=== PATIENT | female | born 1985 | race Caucasian/White ===

== ENCOUNTER → 2020-02-10 08:30 | Outpatient (BNVA) | payer MEDICAID, SELFPAY | PROVIDERS: PCP Family Medicine; Referring Provider Family Medicine; Visit Provider Physician Assistant | DX: Z76.89 Persons encountering health services in other specified circumstances (principal) ==

== ENCOUNTER → 2020-02-11 08:19 | Outpatient (BNVA) | payer MEDICAID, SELFPAY | PROVIDERS: PCP Family Medicine; Referring Provider Family Medicine; Visit Provider Dietitian, Registered | DX: Z76.89 Persons encountering health services in other specified circumstances (principal) ==

== ENCOUNTER → 2020-07-02 11:21 | Outpatient (BNVA) | payer MEDICAID, SELFPAY | PROVIDERS: PCP Family Medicine; Referring Provider Family Medicine; Visit Provider Physician Assistant | DX: K91.2 Postsurgical malabsorption, not elsewhere classified (principal); E66.3 Overweight; L98.7 Excessive and redundant skin and subcutaneous tissue; L53.9 Erythematous condition, unspecified; R21 Rash and other nonspecific skin eruption; Z90.3 Acquired absence of stomach [part of] | CPT/HCPCS: 99212 ==

== ENCOUNTER → 2020-08-25 10:57 | Outpatient (BNVA) | payer MEDICAID, SELFPAY | PROVIDERS: PCP Family Medicine; Visit Provider Physician Assistant | DX: E66.3 Overweight (principal); K91.2 Postsurgical malabsorption, not elsewhere classified; L98.7 Excessive and redundant skin and subcutaneous tissue; L53.9 Erythematous condition, unspecified; R21 Rash and other nonspecific skin eruption; Z90.3 Acquired absence of stomach [part of] | CPT/HCPCS: 99212 ==

== ENCOUNTER → 2020-09-01 12:56 | Outpatient (REF) | payer MEDICAID, SELFPAY ==
--- NOTE | 2020-09-01 13:02 | ECG_ITS ---
Test Reason : PREPROC EXAM Blood Pressure : / mmHG Vent. Rate : 066 BPM Atrial Rate : 066 BPM P-R Int : 158 ms QRS Dur : 092 ms QT Int : 408 ms P-R-T Axes : 023 064 034 degrees QTc Int : 427 ms Normal sinus rhythm Normal ECG When compared with ECG of 06-FEB-2019 10:56, No significant change was found Referred By: Nely White Electronically Signed By:DANGELO DENNY
[2020-09-01 14:22] LABS: Alanine Aminotransferase 10 U/L (0-31); Albumin Level 4.6 g/dL (3.5-5.0); Alkaline Phosphatase 47 U/L (39-117); Anion Gap 11 (12-20); Aspartate Amino Transferase 16 U/L (5-31); Bilirubin Direct 0.2 mg/dL (0.0-0.5); Bilirubin Total 0.6 mg/dL (0.0-1.0); Blood Urea Nitrogen 16 mg/dL (9-16); Carbon Dioxide 27 mmol/L (22-29); Chloride 104 mmol/L (96-108); Estimated Glomerular Filt Rate > 60; Glucose Random 78 mg/dL (60-115); Hematocrit 35.4 % (37-47); Hemoglobin 11.7 g/dl (12.0-16.0); Mean Corpuscular HGB Conc 33.1 g/dl (31.0-35.0); Mean Corpuscular Hemoglobin 29.5 pg (27.0-33.0); Mean Corpuscular Volume 89.2 fL (80-98); Mean Platelet Volume 10.8 fL (9.4-12.3); Partial Thromboplastin Time 34.4 SEC (24.1-38.0); Platelet Count 228 X10*3/uL (160-400); Potassium 4.2 mmol/L (3.3-5.1); Red Blood Count 3.97 X10*6/uL (4.20-5.50); Red Cell Distribution Width 11.9 % (11.0-16.0); Sodium 138 mmol/L (135-145); Total Protein 7.3 g/dL (6.5-8.0); White Blood Count 4.2 X10*3/uL (4.8-10.8)
[2020-09-01 14:26] LABS: Estimated Average Glucose 94 mg/dL; Hemoglobin A1c % 4.9 %
[2020-09-01 14:27] LABS: Glucose Urine UA NEG (NEG); Leukocyte Esterase Urine NEG (NEG); Nitrite Urine NEG (NEG); PH 5.5 (5.0-8.0); Specific Gravity - Urine <= 1.005 (1.005-1.025); Urine Blood NEG (NEG); Urine Ketones NEG (NEG); Urine Protein NEG (NEG-TRACE)
[2020-09-01 14:28] LABS: Appearance Urine HAZY; Color Urine STRAW
[2020-09-01 14:38] LABS: HCG Quantitative < 2 mIU/mL
[2020-09-02 13:04] LABS: HIV AB/AG Nonreactive (Nonreactive); HIV Num 1 0.14 S/CO (0.00-0.99)
== END ==
LOC: HO.CARD 12:56
PROVIDERS: PCP Family Medicine; Referring Provider Nurse Practitioner; Visit Provider Family Medicine
DX: Z01.818 Encounter for other preprocedural examination (principal); Z11.4 Encounter for screening for human immunodeficiency virus [HIV]
CPT/HCPCS: 36415; 80048; 80076; 81003; 83036; 84702; 85027; 85610; 85730; 87086; 87389; 93005

== ENCOUNTER → 2020-09-03 10:47 | Outpatient (BNVA) | payer MEDICAID, SELFPAY | PROVIDERS: PCP Family Medicine; Visit Provider Physician Assistant ==

== ENCOUNTER 2021-02-16 10:28 | Outpatient (REF) | payer MEDICAID, SELFPAY ==
[2021-02-16 14:45] LABS: CT PCR NOT DETECTED (Not Detect.); NG PCR NOT DETECTED (Not Detect.)
[2021-02-19 02:22] LABS: HPV mRNA E6/E7 rflx Not Detected (Not Detected)
== END 2021-02-16 10:29 | disposition home or self-care (01) ==
LOC: HO.LAB 10:28
PROVIDERS: PCP Family Medicine; Visit Provider Advanced Practice Midwife
DX: Z01.419 Encounter for gynecological examination (general) (routine) without abnormal findings (principal); Z11.51 Encounter for screening for human papillomavirus (HPV); Z20.2 Contact with and (suspected) exposure to infections with a predominantly sexual mode of transmission
CPT/HCPCS: 87491; 87591; 87624; 88142

== ENCOUNTER 2021-02-25 13:25 | Emergency (ER) | payer OTHER, MEDICAID, SELFPAY ==
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
[2021-02-25 13:43] VITALS: BP 140/92; PULSE 78; O2SAT 98
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
[2021-02-25 14:17] LABS: MANUAL DIFF FLAG NO
[2021-02-25 14:20] LABS: Basophils Percent Auto 0.4 % (0-2); Eosinophils Absolute Auto 0.1 X10*3/uL (0.0-0.4); Eosinophils Percent Auto 0.9 % (0-4); Hematocrit 36.5 % (37.0-47.0); Hemoglobin 12.3 g/dl (12.0-16.0); Imm Gran Abs Auto 0.02 X10*3/uL (0.00-0.03); Imm Gran Pct Auto 0.3 % (0.0-0.4); Lymphocytes Percent Auto 28.6 % (20-40); Mean Corpuscular HGB Conc 33.7 g/dl (31.0-35.0); Mean Corpuscular Hemoglobin 29.5 pg (27.0-33.0); Mean Corpuscular Volume 87.5 fL (80.0-98.0); Mean Platelet Volume 10.1 fL (9.4-12.3); Monocytes Absolute Auto 0.4 X10*3/uL (0.1-1.2); Monocytes Percent Auto 6.4 % (2-11); Neutrophils Absolute Auto 4.4 x10*3/uL (2.0-8.3); Neutrophils Percent Auto 63.4 % (45-73); Platelet Count 254 X10*3/uL (160-400); Red Blood Count 4.17 X10*6/uL (4.20-5.50); White Blood Count 6.9 X10*3/uL (4.8-10.8)
[2021-02-25 14:37] VITALS: BP 122/97; PULSE 93; BMI 26.6
[2021-02-25 14:37] LABS: Blood Urea Nitrogen 15 mg/dL (9-16); Calcium 9.7 mg/dL (8.4-10.2); Estimated Glomerular Filt Rate > 60; Glucose Random 99 mg/dL (60-115)
[2021-02-25 14:44] LABS: Anion Gap 7 (12-20); Carbon Dioxide 28 mmol/L (22-29); Chloride 107 mmol/L (96-108); Potassium 4.2 mmol/L (3.3-5.1); Sodium 138 mmol/L (135-145)
[2021-02-25] MEDS: iohexoL 350 MG/ML 100 ML INFUS..BTL IV (15:08)
[2021-02-25 15:59] VITALS: BP 111/84; PULSE 68; RESP 16; TEMP 36.8; O2SAT 100
== END 2021-02-25 17:24 | disposition home or self-care (01) ==
PROVIDERS: Physician Assistant; Emergency Provider Emergency Medicine; PCP Family Medicine
DX: S16.1XXA Strain of muscle, fascia and tendon at neck level, initial encounter (principal); G44.309 Post-traumatic headache, unspecified, not intractable; R07.89 Other chest pain; N64.4 Mastodynia; V43.52XA Car driver injured in collision with other type car in traffic accident, initial encounter; Y93.9 Activity, unspecified; Y92.410 Unspecified street and highway as the place of occurrence of the external cause; Y99.9 Unspecified external cause status; Z79.899 Other long term (current) drug therapy
CPT/HCPCS: 36415; 70450; 71260; 72125; 80048; 85025; 99283; 99284; Q9967

== ENCOUNTER 2021-03-03 09:29 | Outpatient (REF) | payer MEDICAID, SELFPAY ==
[2021-03-03 11:22] LABS: COVID-19 Test Positive (Negative); IDNOW Serial# 16C4AD1C
== END 2021-03-03 09:30 | disposition home or self-care (01) ==
LOC: HO.LAB 09:29
PROVIDERS: Visit Provider Internal Medicine
DX: Z20.822 Contact with and (suspected) exposure to COVID-19 (principal)
CPT/HCPCS: 87635; C9803

== ENCOUNTER 2021-03-23 11:08 | Outpatient (REF) | payer MEDICAID, SELFPAY | END 2021-03-23 11:09 | disposition home or self-care (01) | LOC: HO.LAB 11:08 | PROVIDERS: PCP Internal Medicine; Visit Provider Obstetrics & Gynecology | DX: R87.610 Atypical squamous cells of undetermined significance on cytologic smear of cervix (ASC-US) (principal) | CPT/HCPCS: 57454; 88300; 88305 ==

== ENCOUNTER 2021-04-07 11:06 | Outpatient (REF) | payer MEDICAID, SELFPAY | END 2021-04-07 11:07 | disposition home or self-care (01) | LOC: HO.LAB 11:06 | PROVIDERS: Visit Provider Obstetrics & Gynecology | DX: R87.610 Atypical squamous cells of undetermined significance on cytologic smear of cervix (ASC-US) (principal) | CPT/HCPCS: 57454; 88305 ==

== ENCOUNTER 2021-04-12 10:04 | Outpatient (REF) | payer MEDICAID, SELFPAY ==
[2021-04-12 15:45] LABS: CT PCR NOT DETECTED (Not Detect.); NG PCR NOT DETECTED (Not Detect.)
[2021-04-13 11:04] LABS: BV Int Neg Control Negative (Negative); BV Int Pos Control Positive (Positive)
== END 2021-04-12 10:05 | disposition home or self-care (01) ==
LOC: HO.LAB 10:04
PROVIDERS: PCP Family Medicine; Visit Provider Advanced Practice Midwife
DX: N89.8 Other specified noninflammatory disorders of vagina (principal); Z20.2 Contact with and (suspected) exposure to infections with a predominantly sexual mode of transmission
CPT/HCPCS: 87480; 87491; 87510; 87591; 87660; 99212

== ENCOUNTER → 2021-04-14 11:56 | Outpatient (BNVA) | payer MEDICAID, SELFPAY | PROVIDERS: PCP Internal Medicine; Visit Provider Obstetrics & Gynecology ==

== ENCOUNTER → 2021-04-22 11:32 | Outpatient (BNVA) | payer MEDICAID, SELFPAY | PROVIDERS: Visit Provider Obstetrics & Gynecology ==

== ENCOUNTER 2021-05-05 11:41 | Outpatient (REF) | payer MEDICAID, SELFPAY ==
--- NOTE | ~2021-05-05 | XR_ITS ---
EXAMINATION: XR hand wrist RT CLINICAL INFORMATION: Pain COMPARISON: None TECHNIQUE: 4 views of the hand XR/XR hand wrist RT FINDINGS/IMPRESSION: No fracture or dislocation, however given reported area of tenderness corresponds to the scaphoid consider repeat radiographs in 2 weeks or further characterization with MR to exclude radiographically occult scaphoid fracture if clinical symptoms are appropriate Joint spaces are maintained. No cortical erosion. Soft tissues are unremarkable.
== END 2021-05-05 11:42 | disposition home or self-care (01) ==
LOC: HO.XRAY 11:41
PROVIDERS: PCP Family Medicine; Visit Provider Family Medicine
DX: M79.641 Pain in right hand (principal); M25.531 Pain in right wrist; M25.431 Effusion, right wrist
CPT/HCPCS: 73110; 73130

== ENCOUNTER 2021-05-24 12:00 | Outpatient (RCR) | payer OTHER, MEDICAID, SELFPAY | END 2021-05-25 14:53 | disposition home or self-care (01) | LOC: HO.PT 12:00 | PROVIDERS: PCP Internal Medicine; Visit Provider Internal Medicine | DX: M54.2 Cervicalgia (principal) | CPT/HCPCS: 97110; 97140; 97162; 97530 ==

== ENCOUNTER → 2021-05-25 09:00 | Outpatient (BNVA) | payer MEDICAID, SELFPAY | PROVIDERS: PCP Family Medicine; Visit Provider Physician Assistant | DX: M25.641 Stiffness of right hand, not elsewhere classified (principal); S62.001A Unspecified fracture of navicular [scaphoid] bone of right wrist, initial encounter for closed fracture | CPT/HCPCS: 99202 ==

== ENCOUNTER 2021-06-01 13:21 | Outpatient (REF) | payer MEDICAID, SELFPAY ==
--- NOTE | ~2021-06-01 | MR_ITS ---
EXAMINATION: MR WRIST WITHOUT CONTRAST, RIGHT CLINICAL INFORMATION: Stiffness of right hand. COMPARISON: X-rays of the right hand. TECHNIQUE: MRI of the wrist was performed using routine sequences on a high-field scanner. FINDINGS: BONE AND ARTICULAR CARTILAGE: There is a minimally displaced intra-articular fracture along the dorsal radial base of the 2nd metacarpal. There is surrounding edema. The fracture fragment measures approximately 8 mm transverse and 3 mm craniocaudal. There is mild marrow edema noted within the trapezoid compatible with bone contusion. There is bone marrow edema along the dorsal aspect of the hamate compatible with bone contusion. The remaining bone and joints are normal. Joint fluid volume is normal. INTRAOSSEOUS LIGAMENTS: Mild heterogeneity of the volar aspect of the scapholunate ligament compatible with degenerative change or partial tearing, age-indeterminant. No widening of the articulation. Lunotriquetral ligament is intact. TRIANGULAR FIBROCARTILAGE COMPLEX: Normal. NEUROVASCULAR STRUCTURES: Normal. MUSCLES/TENDONS: Normal. MR/MR wrist RT wo con IMPRESSION: Minimally displaced intra-articular fracture of the base of the 2nd metacarpal, likely acute or subacute. Bone contusion of the trapezoid at the 2nd carpometacarpal joint. Bone contusion of the dorsal aspect of the hamate.
== END 2021-06-01 13:22 | disposition home or self-care (01) ==
LOC: HO.MRI 13:21
PROVIDERS: Visit Provider Physician Assistant
DX: M25.641 Stiffness of right hand, not elsewhere classified (principal); S62.001A Unspecified fracture of navicular [scaphoid] bone of right wrist, initial encounter for closed fracture
CPT/HCPCS: 73221

== ENCOUNTER → 2021-06-22 10:41 | Outpatient (BNVA) | payer MEDICAID, SELFPAY | PROVIDERS: PCP Family Medicine; Visit Provider Physician Assistant | DX: S62.318D Displaced fracture of base of other metacarpal bone, subsequent encounter for fracture with routine healing (principal) | CPT/HCPCS: 99212 ==

== ENCOUNTER 2021-08-03 07:26 | Outpatient (REF) | payer MEDICAID, SELFPAY ==
--- NOTE | ~2021-08-03 | XR_ITS ---
EXAMINATION: XR HAND, RIGHT XR WRIST, RIGHT CLINICAL INFORMATION: Pain. COMPARISON: MRI right wrist 06/01/2021 TECHNIQUE: Three views of the right wrist and three views of the right hand. FINDINGS: RIGHT WRIST: There is a mildly dorsal subluxed distal ulna in relation to the radius. Fracture visualized along the base of the second metacarpal on MRI wrist is not readily visualized on this x-ray from today No acute fracture or bony abnormality is seen. No soft tissue swelling. The intercarpal and radioulnar carpal joint spaces are maintained normal. RIGHT HAND: There is no visible acute fracture, dislocation or subluxation seen. There is no joint effusion. No bony erosive changes. XR/XR wrist RT min 3V IMPRESSION: Mild dorsal subluxated distal ulna in relation to the wrist joint. Fracture visualized on MRI at base of second metacarpal on MRI is not visualized on the right hand/wrist exam. No visible acute fracture or bony abnormality is seen involving the right wrist or right hand.
--- NOTE | ~2021-08-03 | XR_ITS ---
EXAMINATION: XR HAND, RIGHT XR WRIST, RIGHT CLINICAL INFORMATION: Pain. COMPARISON: MRI right wrist 06/01/2021 TECHNIQUE: Three views of the right wrist and three views of the right hand. FINDINGS: RIGHT WRIST: There is a mildly dorsal subluxed distal ulna in relation to the radius. Fracture visualized along the base of the second metacarpal on MRI wrist is not readily visualized on this x-ray from today No acute fracture or bony abnormality is seen. No soft tissue swelling. The intercarpal and radioulnar carpal joint spaces are maintained normal. RIGHT HAND: There is no visible acute fracture, dislocation or subluxation seen. There is no joint effusion. No bony erosive changes. XR/XR hand RT min 3V IMPRESSION: Mild dorsal subluxated distal ulna in relation to the wrist joint. Fracture visualized on MRI at base of second metacarpal on MRI is not visualized on the right hand/wrist exam. No visible acute fracture or bony abnormality is seen involving the right wrist or right hand.
== END 2021-08-03 07:27 | disposition home or self-care (01) ==
LOC: HO.HOSX 07:26
PROVIDERS: Visit Provider Physician Assistant
DX: S62.318A Displaced fracture of base of other metacarpal bone, initial encounter for closed fracture (principal)
CPT/HCPCS: 73110; 73130; 99212

== ENCOUNTER 2021-08-04 09:30 | Outpatient (RCR) | payer MEDICAID, SELFPAY ==
--- NOTE | 2021-07-07 09:55 | MHC.OT.EP ---
[address] [phone] Occupational Therapy Plan of Care Date of Evaluation: 07/07/21 Diagnosis: Right hand pain s/p metacarpal fx Assessment: 36 yo female is 11 s/p fall onto her right hand w/ persistent pain. Work-up reveals fracture at base of second metacarpal and multiple carpal contusions. She has been wearing resting wrist orthosis and taking medications w/ some relief. On assessment, she reports pain free at rest and has good range, but pain increases to 8/10 w/ general daily use and gross grasp is low. She will benefit from brief course of OT for education on conservative pain management techniques and progression of functional hand strengthening w/ goal of returning to regular activities w/ zero to low pain. 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 Thank you once again for your referral.
--- NOTE | 2021-08-04 11:22 | MHC.OT.DC ---
[address] [phone] F: [phone] Occupational Therapy Discharge Note Provider: Marti Brower PA-C Diagnosis: Right hand pain s/p metacarpal fx Date of Evaluation: 07/07/21 Date of Discharge: 08/04/21 Treatments to Date: 4 Discharge Status: Achieved Goals Improved Function Independent with HEP Discharge Summary: Shanae had follow up with ortho yesterday and reported continued healing. Pt. reports improved function overall with 0/10 pain at rest and 3-4/10 pain with heavy activity. Functional gains as follows: R wrist and digit AROM is WNL's, insurance underwriter strength improved to 45# on R, and pt. with Quick DASH score of 23%. 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 It is anticipated that pt. will return to work with little difficulties. At this time, pt. has weaned from orthosis and is IND with home exercise program. All goals met and pt. is in agreement with discharge from skilled OT services. Electronically Signed By: Yoly Echeverria OTR/L Please Sign and return to therapist, thank you for your referral.
== END 2021-08-04 11:27 | disposition home or self-care (01) ==
LOC: HO.OT 09:30
PROVIDERS: PCP Emergency Medicine; Visit Provider Physician Assistant
DX: S62.318D Displaced fracture of base of other metacarpal bone, subsequent encounter for fracture with routine healing (principal)
CPT/HCPCS: 97035; 97110; 97165; 97530

== ENCOUNTER 2022-02-17 10:49 | Outpatient (REF) | payer MEDICAID, SELFPAY ==
[2022-02-17 17:41] LABS: CT PCR NOT DETECTED (Not Detect.); NG PCR NOT DETECTED (Not Detect.)
[2022-02-18 12:38] LABS: BV Int Neg Control Negative (Negative); BV Int Pos Control Positive (Positive)
[2022-02-22 22:44] LABS: HPV mRNA E6/E7 rflx Not Detected (Not Detected)
== END 2022-02-17 10:50 | disposition home or self-care (01) ==
LOC: HO.LNP 10:49
PROVIDERS: PCP Emergency Medicine; Visit Provider Advanced Practice Midwife
DX: Z01.419 Encounter for gynecological examination (general) (routine) without abnormal findings (principal); Z11.51 Encounter for screening for human papillomavirus (HPV)
CPT/HCPCS: 87480; 87491; 87510; 87591; 87624; 87660; 88142

== ENCOUNTER 2022-03-10 14:47 | Outpatient (REF) | payer MEDICAID, SELFPAY ==
--- NOTE | ~2022-03-10 | MM_ITS ---
EXAMINATION: MM DIAGNOSTIC DIGITAL BREAST TOMOSYNTHESIS, BILATERAL US DIAGNOSTIC ULTRASOUND BREAST, RIGHT CLINICAL INFORMATION: 37-year-old with palpable nodule lateral right breast noted for approximately one month. Prior history reduction mammoplasty 2005 and subsequent bilateral implants 2019. No prior breast imaging. No known family history breast cancer. TC score 8%. COMPARISON: None (current study represents initial baseline exam). TECHNIQUE: Digital mammography is performed in craniocaudal and mediolateral oblique views along with computer-aided detection (CAD). Digital breast tomosynthesis is performed in implant-displaced craniocaudal and implant-displaced mediolateral oblique views along with computer-aided detection (CAD). Synthesized 2D images are generated from the tomosynthesis. Additional implant displaced right exaggerated CC view is provided. Ultrasound right breast is targeted to the area of clinical palpable concern. Grayscale imaging and color Doppler are performed without and with harmonics. FINDINGS: There are scattered areas of fibroglandular density (ACR BI-RADS breast composition Category b). There are bilateral implants. The implant contours are smooth. The left breast shows no mass or architectural abnormality. Neither breast shows abnormal calcifications. The axilla are unremarkable. There is a circumscribed nodule residing close to the skin posterior 9:30 right breast measuring approximately 0.7 cm which corresponds to the palpable concern. Margins are smooth. No associated calcification. There may be central lucency suggesting intramammary node. Ultrasound demonstrates a benign appearing discoid shaped hypoechoic nodule residing between the skin and the implant 9:00 position 9 cm from nipple and measuring 0.7 x 0.3 x 0.6 cm. Long axis is parallel with the skin. There is no intradermal component. There is color flow adjacent to the nodule directed towards the center of the nodule suggesting probable intramammary node. This could also represent a small fibroadenoma. Results are discussed with the patient at time of visit, using an community coordinator. The palpable concern has a benign appearance, likely intraparenchymal node. Fibroadenoma also less likely consideration. As this represents initial baseline evaluation, follow-up right breast ultrasound in 6 months is suggested to confirm stability. MM/MM tomosynthesis diag imp BI IMPRESSION: Right: -Benign appearing discoid shaped nodule under 1 cm at site of palpable concern, likely intraparenchymal lymph node or fibroadenoma. Left: -No mammographic evidence of malignancy. ASSESSMENT: BI-RADS 3: Probably Benign RECOMMENDATION: Ultrasound right breast in 6 months. This patient's information was entered into a reminder system with a target due date for their next mammogram.
== END 2022-03-10 14:48 | disposition home or self-care (01) ==
LOC: HO.MAMMO 14:47
PROVIDERS: Visit Provider Advanced Practice Midwife
DX: N63.15 Unspecified lump in the right breast, overlapping quadrants (principal)
CPT/HCPCS: 76642; 77062; 77066

== ENCOUNTER 2022-06-17 17:12 | Emergency (ER) | payer MEDICAID, SELFPAY ==
--- NOTE | ~2022-06-17 | XR_ITS ---
EXAMINATION: XR SHOULDER, RIGHT CLINICAL INFORMATION: Injury and pain COMPARISON: None available. TECHNIQUE: AP external rotation, Grashey, scapular Y, and axillary views of the right shoulder. FINDINGS: The bones and soft tissues are normal. No fracture. Glenohumeral and acromioclavicular alignment is anatomic with normal joint space. No abnormal soft tissue calcifications. XR/XR shoulder RT min 2V IMPRESSION: Normal right shoulder.
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
[2022-06-17 17:22] VITALS: BP 115/85; BP 130/82; PULSE 103; PULSE 120; RESP 20; TEMP 36.6; O2SAT 97; O2SAT 99; BMI 26.6
--- NOTE | 2022-06-17 17:49 | PC.NURSE ---
Call [place] [employer] if she has any internal injuries tel# [phone] ask for officer Itz
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
[2022-06-17 19:26] VITALS: BP 101/57; PULSE 73; RESP 16; TEMP 36.6; O2SAT 97
[2022-06-17] MEDS: oxyCODONE HCl Immed Release 5 MG TABLET 10 MG PO (20:24)
--- NOTE | 2022-06-17 22:00 | PC.NURSE ---
Patient awaiting police escort to [place] police department. Son is picking up his little sister to take her home.
== END 2022-06-17 22:13 | disposition home or self-care (01) ==
PROVIDERS: Emergency Provider Internal Medicine
DX: S10.91XA Abrasion of unspecified part of neck, initial encounter (principal); R51.9 Headache, unspecified; M54.2 Cervicalgia; M25.511 Pain in right shoulder; Y04.2XXA Assault by strike against or bumped into by another person, initial encounter; Y93.9 Activity, unspecified; Y92.9 Unspecified place or not applicable; Y99.9 Unspecified external cause status; Z87.891 Personal history of nicotine dependence; Z79.899 Other long term (current) drug therapy
CPT/HCPCS: 70450; 72125; 73030; 99284

== ENCOUNTER 2022-09-26 14:10 | Outpatient (REF) | payer MEDICAID, SELFPAY | END 2022-09-26 14:11 | disposition home or self-care (01) | LOC: HO.MAMMO 14:10 | PROVIDERS: PCP Family Medicine; Visit Provider Advanced Practice Midwife | DX: Z13.89 Encounter for screening for other disorder (principal) ==

== ENCOUNTER 2022-12-09 20:35 | Emergency (ER) | payer OTHER, SELFPAY ==
--- NOTE | 2022-12-09 20:41 | ED_ITS ---
HPI - Altered Mental Status General Chief Complaint: ETOH/Substance Use Stated Complaint: ETOH. Pt is combative. [employer] is with pt Time Seen by Provider: 12/09/22 20:38 Source: EMS Mode of arrival: EMS Limitations: language barrier History of Present Illness HPI narrative: patient found agitated and intoxicated running around her house. She has not said that she is suicidal. She had a 6yo in the house. patient presents via EMS very agitated. MD complaint: altered mental status and intoxication Related Data Home Medications Medication Instructions Recorded Confirmed Celebrate calcium/D PO 07/02/20 07/02/20 hydrocortisone 1 % topical cream 1 appl topical TID PRN 07/02/20 07/02/20 [id number] 45 mg-folic cap PO 07/02/20 07/02/20 acid 800 mcg-vit K 120 mcg capsule (Bariatric Multivitamins) nystatin 100,000 unit/mL oral 1 ml PO DAILY 07/02/20 07/02/20 suspension Previous Rx's Medication Instructions Recorded cyclobenzaprine 10 mg tablet 10 mg PO TID PRN muscle spasm #8 02/25/21 tabs ibuprofen 600 mg tablet 600 mg PO Q8H PRN pain #20 tabs 02/25/21 lidocaine 5 % topical patch 1 patch topical DAILY #15 ea 02/25/21 metronidazole 0.75 % (37.5 mg/5 1 appful vaginal BEDTIME 5 days 04/15/21 gram) vaginal gel (Metrogel #70 grams Vaginal) diclofenac 1.5 % solution and See Rx Instructions topical 05/25/21 capsaicin 0.025 % cream topical kit .COMPLEX #1 ea metronidazole 0.75 % (37.5 mg/5 1 appful vaginal BEDTIME 5 days 02/18/22 gram) vaginal gel #70 grams ibuprofen 600 mg tablet 600 mg PO Q6H PRN fever or pain 06/17/22 #30 tabs Allergies Allergy/AdvReac Type Severity Reaction Status Date / Time No Known Allergies Allergy Verified 02/17/22 11:07 [No Known Allergies*] Review of Systems 2 Review of Systems: Yes Unobtainable due to mental status Neurologic: Denies Sensory deficit (Neuro) PMFSH Past Medical History Medical History Abnormal Pap smear of cervix Rash Arm erythema Excess skin of upper extremity Overweight (BMI 25.0-29.9) Intestinal malabsorption following gastrectomy Surgical History History of breast lift H/O breast augmentation History of loop electrical excision procedure (LEEP) History of sleeve gastrectomy Hx of dilation and curettage History of ear surgery Hx of breast reduction, elective Hx of tubal ligation Family History Family History Father Type 2 diabetes mellitus Hypertension Mother Obesity Hypertension Son Obesity Son No problems noted. Daughter No problems noted. Brother No problems noted. Brother No problems noted. Sister No problems noted. Maternal Uncle Colon cancer Maternal Grandmother Type 2 diabetes mellitus Social History Social History Household Members Other:: daughter Housing: Apartment Alcohol intake: current Alcohol intake frequency: holidays/special occasions only Patient Tobacco Use Status: Former Tobacco user Advance Directives: No Advance Directives Information Provided: No Current occupational status: employed Current occupation: [employer] Sexual orientation: Straight/Heterosexual Gender identity: Female Physical Exam ED Vital Signs: Vital Signs - 24 hr 12/09/22 21:12 12/09/22 21:26 12/09/22 21:37 Temperature 98.1 F 97.8 F Pulse Rate 87 95 78 Respiratory Rate 16 20 15 Blood Pressure 119/66 102/69 Pulse Oximetry 96 98 96 Oxygen Delivery Method Room Air Room Air Room Air BMI result Body Mass Index 22.7 Const Other: intoxicated screaming Nutritional Appearance: average body habitus Orientation/consciousness: oriented to person Limitations: no limitations HENMT Head: Yes normal to inspection Ears: external ears normal General nose exam: Normal external nose present Mouth: Normal oral and palatal mucosa present and oropharynx normal Throat: Yes posterior oropharynx normal Eyes General: appearance normal, both eyes and all related structures Neck Neck: Yes normal visual inspection Chest Chest palpation & inspection: normal inspection of the chest Resp Auscultation: clear to auscultation bilaterally Cardio Jugular venous distension: no JVD Rate: regular rate Rhythm: regular rhythm Heart sounds: S1 normal heart sound present and S2 normal heart sound present GI Inspection: Yes normal to inspection Palpation (GI): Soft to palpation, nontender and No hepatosplenomegaly present Auscultation: normal bowel sounds General: Yes no CVA tenderness Back/Spine/Pelvis Back: no CVA tenderness Skin General skin exam: no rashes or lesions noted Neuro General: oriented to person Cranial nerves: Yes CN's II-XII intact bilaterally Motor exam (neuro): 5/5 motor strength present throughout Sensory Exam: No Sensory deficit (Neuro) Extrem General: Yes normal to inspection Psych Other: agitated intoxicated, screaming Course Reevaluation(s) Reevaluation #1: patient placed in physician observation at 9:45pm. Reason is she needs to sober up and then be evaluated for depression and suicidal ideation Time: 21:49 Medications Administered Discontinued Medications Generic Name Dose Route Start Last Admin Trade Name Freq PRN Reason Stop Dose Admin Haloperidol Lactate 5 mg 12/09/22 20:42 12/09/22 21:00 Haloperidol Lactate 5 Mg/Ml Vial IM 12/09/22 20:43 5 mg STAT STA Administration Lorazepam 2 mg 12/09/22 20:42 12/09/22 21:00 Lorazepam 2 Mg/Ml Vial IM 12/09/22 20:43 2 mg ONCE ONE Administration Medical Decision Making Differential Diagnosis Differential Diagnoses: The differential diagnosis associated with the presentation includes (intoxication, agitation, depression, suicidal ideation) Admission/Observation Consideration of admission/observation: Escalation of care including admission/observation considered (upon arrival patient considered for admission) Lab Data 12/09/22 21:45 12/09/22 21:45 Labs: Lab Results 12/09/22 Range/Units 21:45 WBC 8.1 (4.8-10.8) X10*3/uL RBC 4.04 L (4.20-5.50) X10*6/uL Hgb 12.4 (12.0-16.0) g/dl Hct 36.2 L (37.0-47.0) % MCV 89.6 (80.0-98.0) fL MCH 30.7 (27.0-33.0) pg MCHC 34.3 (31.0-35.0) g/dl RDW 12.1 (11.0-16.0) % Plt Count 228 (160-400) X10*3/uL MPV 10.0 (9.4-12.3) fL Immature Gran % (Auto) 0.2 (0.0-0.4) % Neut % (Auto) 37.3 L (45-73) % Lymph % (Auto) 52.7 H (20-40) % Brooks % (Auto) 4.6 (2-11) % Eos % (Auto) 4.1 H (0-4) % Baso % (Auto) 1.1 (0-2) % Lymph # (Auto) 4.3 (1.2-4.9) X10*3/uL Brooks # (Auto) 0.4 (0.1-1.2) X10*3/uL Eos # (Auto) 0.3 (0.0-0.4) X10*3/uL Baso # (Auto) 0.1 (0.0-0.2) X10*3/uL Abs Immat Gran (auto) 0.02 (0.00-0.03) X10*3/uL Absolute Neuts (auto) 3.0 (2.0-8.3) x10*3/uL Absolute Nucleated RBC 0.000 (0.0-0.012) X10*3/uL Nucleated RBC % (auto) 0.0 (0.0-0.2) /100WBC Independent Historian Clinical information obtained from an independent historian. History obtained from or confirmed by: EMS Chronic Conditions Patient?s care impacted by: Other (alcoholism, depression) Social Determinants Patient?s care significantly limited by Social Determinants of Health including: Alcoholism and drug addiction in family Discharge Plan Discharge Clinical Impression: Alcohol intoxication, Depression Patient Disposition: Still a Patient Prescriptions: No Action metronidazole [Metrogel Vaginal] 0.75 % gel 1 appful vaginal BEDTIME 5 Days Qty: 70 0RF metronidazole 0.75 % (37.5mg/5 gram) gel 1 appful vaginal BEDTIME 5 Days Qty: 70 0RF ibuprofen 600 mg tablet 600 mg PO Q8H PRN (Reason: pain) Qty: 20 0RF lidocaine 5 % adhesive patch,medicated 1 patch topical DAILY Qty: 15 0RF Rx Instructions: leave on most painful area for up to 12 hrs cyclobenzaprine 10 mg tablet 10 mg PO TID PRN (Reason: muscle spasm) Qty: 8 0RF ibuprofen 600 mg tablet 600 mg PO Q6H PRN (Reason: fever or pain) Qty: 30 0RF Bariatric Multivitamins 45 mg iron- 800 mcg-120 mcg capsule PO nystatin 100,000 unit/mL suspension 1 ml PO DAILY Rx Instructions: swish and swallow Celebrate calcium/D PO hydrocortisone 1 % cream 1 appl topical TID PRN diclofenac-capsaicin 1.5-0.025 % kit, cream and solution See Rx Instructions topical .COMPLEX Qty: 1 0RF Rx Instructions: apply 40 drops DICLOFENAC onto knee 4 times daily: apply CAPSAICIN CREAM 3-4 times daily/as directed topical
[2022-12-09] MEDS: LORazepam 2 MG/ML VIAL IM (21:00)
[2022-12-09] MEDS: Haloperidol Lactate 5 MG/ML VIAL IM (21:00)
--- NOTE | 2022-12-09 21:11 | MHC.EDTECH ---
Patient changed over
[2022-12-09 21:12] VITALS: BP 119/66; PULSE 87; RESP 16; TEMP 36.7; O2SAT 96
[2022-12-09 21:26] VITALS: PULSE 95; RESP 20; TEMP 36.6; O2SAT 98; BMI 22.7
[2022-12-09 21:37] VITALS: BP 102/69; PULSE 78; RESP 15; O2SAT 96
[2022-12-09 21:48] LABS: MANUAL DIFF FLAG NO
[2022-12-09 21:53] LABS: Basophils Absolute Auto 0.1 X10*3/uL (0.0-0.2); Basophils Percent Auto 1.1 % (0-2); Eosinophils Absolute Auto 0.3 X10*3/uL (0.0-0.4); Eosinophils Percent Auto 4.1 % (0-4); Hematocrit 36.2 % (37.0-47.0); Hemoglobin 12.4 g/dl (12.0-16.0); Imm Gran Abs Auto 0.02 X10*3/uL (0.00-0.03); Imm Gran Pct Auto 0.2 % (0.0-0.4); Lymphocytes Absolute Auto 4.3 X10*3/uL (1.2-4.9); Lymphocytes Percent Auto 52.7 % (20-40); Mean Corpuscular HGB Conc 34.3 g/dl (31.0-35.0); Mean Corpuscular Hemoglobin 30.7 pg (27.0-33.0); Mean Corpuscular Volume 89.6 fL (80.0-98.0); Monocytes Absolute Auto 0.4 X10*3/uL (0.1-1.2); Monocytes Percent Auto 4.6 % (2-11); Neutrophils Percent Auto 37.3 % (45-73); Platelet Count 228 X10*3/uL (160-400); Red Blood Count 4.04 X10*6/uL (4.20-5.50); Red Cell Distribution Width 12.1 % (11.0-16.0); White Blood Count 8.1 X10*3/uL (4.8-10.8)
[2022-12-09 22:00] VITALS: BP 91/55; PULSE 73; RESP 16; O2SAT 99
[2022-12-09 22:01] LABS: Anion Gap 16 (12-20); Blood Urea Nitrogen 13 mg/dL (9-16); Calcium 9.1 mg/dL (8.4-10.2); Carbon Dioxide 24 mmol/L (22-29); Chloride 108 mmol/L (96-108); Creatinine Clr Calc Pharmacy 105.5; Estimated Glomerular Filt Rate > 60; Ethanol 340 mg/dL; Glucose Random 89 mg/dL (60-115); Potassium 3.8 mmol/L (3.3-5.1); Sodium 144 mmol/L (135-145)
[2022-12-09 22:11] LABS: Acetaminophen LAB < 17 mcg/mL (<30); Salicylate < 5.0 mg/dL (15-30)
[2022-12-09 23:12] VITALS: BP 105/70; PULSE 86; RESP 15; O2SAT 100
--- NOTE | 2022-12-09 23:21 | PC.NURSE ---
22:00 Patient arousable to verbal stimuli. Resting comfortably on ED stretcher. Resp even and unlabored. Skin warm dry intact. Warm blanket provided. Vitals WNL.
[2022-12-10] VITALS (8 sets, daily range): BP systolic 93–138; BP diastolic 56–91; PULSE 66–93; RESP 14–20; TEMP 36.8–37.3; O2SAT 97–100
--- NOTE | 2022-12-10 07:12 | PC.NURSE ---
patient appears to be sleeping, respirations equal and unlabored. patient shows no sign of distress
--- NOTE | 2022-12-10 07:47 | PC.NURSE ---
spoke with ALFONSO Jewell who reported that a DCF team is on their way currently to speak with the pt and should be here shortly .
--- NOTE | 2022-12-10 09:21 | PC.NURSE ---
spoke with DCF who requested CASTLE on pt. requesting updates and behavioral concerns. requesting update once CARE team has spoken to the pt.
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
[2022-12-10 10:13] LABS: Amphetamine Screen Urine Not Detected (Not Detect); Barbiturates, Urine Not Detected (Not Detect); Benzodiazepines Screen Urine Not Detected (Not Detect); Cannabinoid Screen Urine POSITIVE (Not Detect); Cocaine Screen Urine Not Detected (Not Detect); Fentanyl, urine Not Detected (Not Detect); Opiate Screen Urine Not Detected (Not Detect); Phencyclidine Screen Urine Not Detected (Not Detect)
[2022-12-10 10:23] LABS: Appearance Urine Clear; Color Urine Yellow; Glucose Urine UA Negative (Negative); Leukocyte Esterase Urine Negative (Negative); Nitrite Urine Negative (Negative); PH 8.5 (5.0-9.0); Urine Blood Negative (Negative); Urine Ketones Negative (Negative); Urine Protein Negative (Neg-Trace)
--- NOTE | 2022-12-10 10:26 | PC.NURSE ---
Spoke with ALFONSO Walters who informed this medical technical writer that they had to remove the child from the house at this time. ALFONSO to inform pt
--- NOTE | 2022-12-10 14:12 | PC.NURSE ---
CARE team at bedside
--- NOTE | 2022-12-10 15:10 | PC.NURSE ---
pt irritable, reports that she wants her cell phone to use because she will not be evaluated by CARE team until tomorrow. pt pacing around the room, invading her roommates space. redirection provided to pt.
--- NOTE | 2022-12-10 20:41 | PC.NURSE ---
pt in speaking with care team
--- NOTE | 2022-12-10 22:48 | PC.NURSE ---
pt assessed at d/c, denies any complaints, ambulatory gait steady
== END 2022-12-10 22:50 | disposition home or self-care (01) ==
PROVIDERS: Emergency Medicine; Emergency Provider Emergency Medicine Emergency Medical Services
DX: F10.920 Alcohol use, unspecified with intoxication, uncomplicated (principal); Y90.8 Blood alcohol level of 240 mg/100 ml or more; F32.A Depression, unspecified; R45.1 Restlessness and agitation; Z87.891 Personal history of nicotine dependence; Z79.899 Other long term (current) drug therapy; Z90.3 Acquired absence of stomach [part of]
CPT/HCPCS: 36415; 80048; 80143; 80179; 80307; 81003; 85025; 96372; 99285; J2060; S9485

== ENCOUNTER 2023-03-21 11:29 | Outpatient (AMB) | payer MEDICAID, SELFPAY ==
--- NOTE | 2023-03-21 11:36 | A.OFFVIS_ITS ---
Intake VS Expanded 03/21/23 11:56 BP 127/68 Blood Pressure Location Rt brachial Blood Pressure Position Sitting Pulse 85 Pulse Source Pulse Oximeter Temp 96.6 F L Temperature Source Temporal Artery Scan Pulse Oximetry 97 Oxygen Delivery Method Room Air Height 5 ft 4 in Weight 163 lb 3.2 oz BMI 28.0 Body Fat % 34.6 Body Fat Mass 56.4 Fat Free Mass 106.8 Visceral Fat Rating 6.0 Body Water % 46.9 Body Water Mass 76.6 Muscle Mass/Score 101.2 Basal Metabolic Rate/Score 1,465 Intake Visit Reasons: TELEPHONE POM LSG 04/09/2019 Privacy Attorney Required: Yes Allergies No Known Allergies [No Known Allergies*] Allergy (Verified 03/21/23 11:51) Medication List - Last Reconciled 03/21/23 by JESUS Vieira baclofen 20 mg PO TID [Celebrate calcium/D PO] cyclobenzaprine 10 mg PO TID PRN hydroxyzine pamoate 50 mg PO BID PRN lidocaine 5% 1 patch topical DAILY qllyvkldypch-etj-pbxc-FA-vit K 45 mg iron- 800 mcg-120 mcg (Bariatric Multivitamins) caps PO trazodone 50 - 100 mg PO BEDTIME PRN HPI HPI Comments History of Present Illness Details Pt is s/p G 04/09/2019. Has not been seen since 08/25/2020 at which time weight/BMI were 150.4/25.8. Today's weight/BMI 163.2/28. Pt reports I feel good. Would like to lose 15lbs more. Notes issues with excess skin of upper arms. Sometimes gets rashes due to chafing. Movement, including lifting her arms over her head, is more difficult and walking/exercise is more difficult and painful. Has to wear special clothing with long loose sleeves as other shirts don't fit well or cause discomfort. Has tried OTC topical treatments but this has not resolved the issue. Also has similar problems of upper inner thighs. Experiences chafing due to excess skin rubbing together when walking. Walking has become painful and more difficult due to chafing and rashes. Has to wear special clothing to prevent rubbing together (Lycra). Cannot wear shorts in summer time due to bare skin making contact. Has tried OTC topical treatments but this has not resolved the issue. Current meal plan: breakfast- eggs with whole grain bread will also have a green juice lunch- fish, pork, or chicken, vegetables, little bit of rice dinner- sometimes nothing, sometimes similar to lunch drinking adequate water Exercise- likes to walk, 5 days per week, 1 mile [facility] Medical History Abnormal Pap smear of cervix Rash Arm erythema Excess skin of upper extremity Overweight (BMI 25.0-29.9) Intestinal malabsorption following gastrectomy Surgical History History of breast lift H/O breast augmentation History of loop electrical excision procedure (LEEP) History of sleeve gastrectomy Hx of dilation and curettage History of ear surgery Hx of breast reduction, elective Hx of tubal ligation Family History Father Type 2 diabetes mellitus Hypertension Mother Obesity Hypertension Son Obesity Son No problems noted. Daughter No problems noted. Brother No problems noted. Brother No problems noted. Sister No problems noted. 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 Wilson Code(s): Z90.3 - Acquired absence of stomach [part of] (2) Overweight (BMI 25.0-29.9): Code(s): E66.3 - Overweight (3) Excess skin: Code(s): L98.7 - Excessive and redundant skin and subcutaneous tissue Plan Recommended pt eat something high in protein for dinner every night and not skip a meal- this will help make sure she gets adequate protein each day. We discussed that appropriate nutrition was essential for optimal healing after another potential operation. Clotrimazole ointment ordered for rashes of excess skin. Labs not already ordered by PCP, ordered today and pt plans to have done next week. RTC 6 weeks to monitor issues of excess skin. Patient is overweight and is not considered stable at this time. I spent a total of 30 minutes reviewing/updating records, examining the patient and counseling the patient on weight management as detailed above. Orders: Orders Vitamin B12 and Folate Today Z90.3 - Acquired absence of stomach [part of] Zinc Today Z90.3 - Acquired absence of stomach [part of] Insulin Today Z90.3 - Acquired absence of stomach [part of] C Reactive Protein Today Z90.3 - Acquired absence of stomach [part of] Vitamin B1 Today Z90.3 - Acquired absence of stomach [part of] Vitamin A Today Z90.3 - Acquired absence of stomach [part of] Medications: New clotrimazole 1% 1 appl topical BID 45 grams 3RF Coding Level of Care Code Est Pt Level 4 (48528) Diagnoses History of sleeve gastrectomy Z90.3 Overweight (BMI 25.0-29.9) E66.3 Excess skin L98.7
[2023-03-21 11:56] VITALS: BP 127/68; PULSE 85; TEMP 35.9; O2SAT 97; BMI 28.0
== END 2023-03-21 12:33 | disposition home or self-care (01) ==
PROVIDERS: Visit Provider Physician Assistant Surgical
DX: E66.3 Overweight (principal); Z68.28 Body mass index [BMI] 28.0-28.9, adult; Z90.3 Acquired absence of stomach [part of]; L98.7 Excessive and redundant skin and subcutaneous tissue
CPT/HCPCS: 99214

== ENCOUNTER → 2023-03-21 11:29 | Outpatient (BNVA) | payer MEDICAID, SELFPAY | PROVIDERS: Visit Provider Physician Assistant Surgical | DX: E66.3 Overweight (principal); Z68.28 Body mass index [BMI] 28.0-28.9, adult; L98.7 Excessive and redundant skin and subcutaneous tissue; Z98.84 Bariatric surgery status; Z90.3 Acquired absence of stomach [part of] | CPT/HCPCS: 99212 ==

== ENCOUNTER → 2023-06-26 10:46 | Outpatient (BNVA) | payer MEDICAID, SELFPAY | PROVIDERS: Visit Provider Physician Assistant Surgical ==

== ENCOUNTER 2023-06-27 10:29 | Outpatient (AMB) | payer MEDICAID, SELFPAY ==
[2023-06-27 10:35] VITALS: BP 106/60; BMI 29.7
--- NOTE | 2023-06-27 10:35 | MHC.OFFVIS ---
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 Information Interpreted: clinical only Head Of Business Development: Head Of Business Development Present Allergies No Known Allergies [No Known Allergies*] Allergy (Verified 06/27/23 10:35) Medication List - Last Reconciled 06/27/23 by Crystal Michael CNM baclofen 20 mg PO TID [Celebrate calcium/D PO] clotrimazole 1% 1 appl topical BID cyclobenzaprine 10 mg PO TID PRN hydroxyzine pamoate 50 mg PO BID PRN lidocaine 5% 1 patch topical DAILY naqseswfzcjy-ddj-cazo-FA-vit K 45 mg iron- 800 mcg-120 mcg (Bariatric Multivitamins) caps PO trazodone 50 - 100 mg PO BEDTIME PRN Is last menstrual period known: Yes Last menstrual period: 05/30/23 HPI HPI 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 She is due for Pap. She had a little vaginal itching but it has not there now but she would like to get checked for infection. She has breast implants and has had liposuction. She had felt something in her breasts and her mammogram was ordered by her primary care provider and got rescheduled but now it is going to happen tomorrow. The surgeon for her breast implants was in [place]. [facility] Medical History (Updated 06/27/23 @ 11:57 by Crystal Michael CNM) Abnormal Pap smear of cervix Rash Arm erythema Excess skin of upper extremity Overweight (BMI 25.0-29.9) Intestinal malabsorption following gastrectomy Surgical History (Updated 06/27/23 @ 11:57 by Crystal Michael CNM) History of breast lift H/O breast augmentation History of loop electrical excision procedure (LEEP) History of sleeve gastrectomy Hx of dilation and curettage History of ear surgery Hx of breast reduction, elective Hx of tubal ligation Family History Father Type 2 diabetes mellitus Hypertension Mother Obesity Hypertension Son Obesity Son No problems noted. Daughter No problems noted. Brother No problems noted. Brother No problems noted. Sister No problems noted. Maternal Uncle Colon cancer Maternal Grandmother Type 2 diabetes mellitus Social History Household Members Other:: daughter Housing: Apartment Alcohol intake: current Alcohol intake frequency: holidays/special occasions only Patient Tobacco Use Status: Former Tobacco user Current occupational status: employed Current occupation: [employer] Sexual orientation: Straight/Heterosexual Gender identity: Female Female Reproductive History Menstrual Age of Menarche: 12 Duration of menses: 3-5 days Date of last menstrual period: 05/30/23 control method: permanent sterilization Total pregnancies: 3 Full term: 3 Date of last pap smear: 03/23/21 (negative) History of abnormal pap smear: Yes (02/17/21 abn.,2018 CIN3) Physical Exam Vital Signs: Last Vital Signs BP 106/60 06/27/23 10:35 BMI result Body Mass Index 29.7 Const Other: Patient has had cosmetic surgeries including breast augmentation and liposuction. General: healthy appearing, comfortable, no acute distress, well developed and alert Nutritional Appearance: average body habitus Orientation/consciousness: patient oriented x3 Limitations: no limitations HEENT Head: Yes normocephalic Neck Neck: Yes normal visual inspection Chest Chest palpation & inspection: normal inspection of the chest Breast/axilla inspection: normal inspection of the breasts and normal inspection of the axillae Breast/axilla palpation: normal palpation of the breasts and normal palpation of the axillae Resp Effort & Inspection: normal respiratory effort GI Inspection: Yes normal to inspection, No Abdominal wall edema and No distended Palpation (GI): Soft to palpation and nontender Other: Normal external exam no lesions or abnormal discharge noted vagina pink and moist cervix status post LEEP multiparous long thick closed mobile nontender uterus anteverted mobile nontender very good tone with Kegel. General: Yes bladder normal to palpation External Female Exam: normal external appearance and normal appearance of the urethra Speculum Exam - Vagina: normal appearance of the vagina, normal palpation and normal vaginal discharge Speculum Exam - Cervix: normal appearance of the cervix, normal palpation and nontender Bimanual exam- vagina & uterus: normal bimanual exam, normal palpation, uterine size normal, bladder normal to palpation, consistency normal, normal palpation, uterine mobility normal, uterine shape normal, No Cervical tenderness present, non-tender and no cervical motion tenderness Bimanual Exam- Adnexa, other: normal adnexae, no masses, normal and No adnexal tenderness Neuro General: patient oriented x3 Results Reviewed Results Reviewed: Name: Shanae Smith Age/Sex: 37/F Attending: Rolanda Dyer CNM : 1985 Submitted by: Rolanda Dyer CNM Copies to: BERNARDO BROOKS MD MR #: [id number] Status: DEP REF Collected: 02/17/22 Location: [facility] Received: 02/18/22 Interpretation Satisfactory for evaluation. Negative for intraepithelial lesion or malignancy. HPV mRNA E6/E7: NOT DETECTED This assay detects E6/E7 viral messenger RNA (mRNA) from 14 high-risk HPV types (16, 18, 31, 33, 35, 39, 45, 51, 52, 56, 58, 59, 66, 68) HPV testing performed by [facility], [place], [place]. See reference laboratory portion of the EMR for entire report. Clinical Information LMP: 01/31/2022 Previous PAP test: 2020, Abnormal Other history: Ascus Material Received ThinPrep-Cervical Copies To BERNARDO BROOKS MD [address] [place] [address] [id number] Rolanda Dyer CNM [address] [place] [address] Dr. Payne [address] [place] [id number] Electronically Signed By: Celina Rush 02/27/22 5343 The Pap Test is a screening procedure with the inherent possibility of both false negative and false positive results. Results should be interpreted in the context of historic and current clinical findings. Reliability of the Pap Test is enhanced by performing the test on a regular repetitive basis. Patient: Shanae Smith Age/Sex: 37/F MR#: [id number] Page 1 of 1 Assessment & Plan Assessment & Plan (1) Encounter for annual routine gynecological examination: Code(s): Z01.419 - Encounter for gynecological examination (general) (routine) without abnormal findings Category: Medical Plan -----Discussed in this visit the following: healthy balanced diet, regular and consistent exercise, getting recommended health screens, doing the best she can for her particular health concerns, kegel exercises, pap smear screening and followup recommendations, mammography screening and SBE, normal changes in cycles in her life stage--- . She is getting her mammogram tomorrow to follow-up on a previous breast concern arranged via her primary care provider. She is following up on everything she needs to follow-up on. Pap smear was done as it is definitely necessary with her history of abnormal Paps and LEEPs. Checking done for infection though her discharge is scant. Possibly consistent with her being due to get her period any day now. She gets her periods monthly she depends on tubal ligation for control. She is going to check out portal to get all of her results at the front man we will see her in 1 year. Coding Level of Care Code Est Pt Prev Care 18-39y(49346) Diagnoses Encounter for annual routine gynecological examination Z01.419
== END 2023-06-27 12:17 | disposition home or self-care (01) ==
PROVIDERS: PCP Family Medicine; Visit Provider Advanced Practice Midwife
DX: Z01.419 Encounter for gynecological examination (general) (routine) without abnormal findings (principal)
CPT/HCPCS: 99395

== ENCOUNTER 2023-06-27 10:29 | Outpatient (REF) | payer MEDICAID, SELFPAY ==
[2023-06-28 15:06] LABS: BV Int Neg Control Negative (Negative); BV Int Pos Control Positive (Positive)
[2023-06-28 16:43] LABS: CT PCR NOT DETECTED (Not Detect.); NG PCR NOT DETECTED (Not Detect.)
[2023-07-05 23:39] LABS: HPV mRNA E6/E7 rflx Not Detected (Not Detected)
== END 2023-06-27 10:30 | disposition home or self-care (01) ==
LOC: HO.LAB 10:29
PROVIDERS: PCP Family Medicine; Visit Provider Advanced Practice Midwife
DX: Z01.419 Encounter for gynecological examination (general) (routine) without abnormal findings (principal); Z11.51 Encounter for screening for human papillomavirus (HPV); Z20.2 Contact with and (suspected) exposure to infections with a predominantly sexual mode of transmission
CPT/HCPCS: 0353U; 87480; 87510; 87624; 87660; 88142; 99395

== ENCOUNTER 2023-06-28 14:24 | Outpatient (REF) | payer MEDICAID, SELFPAY ==
--- NOTE | ~2023-06-28 | US_ITS ---
EXAMINATION: US DIAGNOSTIC ULTRASOUND BREAST, RIGHT CLINICAL INFORMATION: 6 month Follow-up small oval nodule 9:00 axis right breast. COMPARISON: 03/10/2022 right breast ultrasound. TECHNIQUE: Ultrasound of the right breast is performed with real-time toledo scale imaging and color Doppler. Attention was given to the 9:00 axis. FINDINGS: There is redemonstration of a stable and unchanged oval hypoechoic taller than wide nodule at 9:00 axis right breast, 9 cm from the nipple, with good through transmission, circumscribed margins, abundant associated color Doppler flow, measuring an unchanged 6 x 3 x 6 mm. This is most likely an intramammary lymph node versus a small fibroadenoma. It is located between the implant capsule and the skin. It remains probably benign. Results are provided to the patient at time of visit by the technologist. US/US breast RT limited mamm only IMPRESSION: -Benign-appearing unchanged oval nodule under 1 cm at the 9:00 axis, 9 cm from the nipple, right breast, interposed between the skin and implant capsule. This is unchanged, most likely represents a fibroadenoma or intramammary lymph node. Six-month interval follow-up targeted ultrasound recommended to ensure two-year stability. ASSESSMENT: BI-RADS 3 - Probably benign finding(s) - 6 month follow-up suggested RECOMMENDATION: 6 Month F/U This patient's information was entered into a reminder system with a target due date for their next mammogram.
== END 2023-06-28 14:25 | disposition home or self-care (01) ==
LOC: HO.MAMMO 14:24
PROVIDERS: PCP Family Medicine; Visit Provider Family Medicine
DX: N63.15 Unspecified lump in the right breast, overlapping quadrants (principal)
CPT/HCPCS: 76642

== ENCOUNTER → 2023-06-28 14:30 | Outpatient (BNV) | payer MEDICAID, SELFPAY | PROVIDERS: PCP Family Medicine; Visit Provider Radiology Diagnostic Radiology | DX: N63.15 Unspecified lump in the right breast, overlapping quadrants (principal) | CPT/HCPCS: 76642 ==

== ENCOUNTER 2023-08-01 13:23 | Outpatient (AMB) | payer MEDICAID, SELFPAY ==
--- NOTE | 2023-08-01 13:24 | A.OFFVIS_ITS ---
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 Present Allergies No Known Allergies [No Known Allergies*] Allergy (Verified 08/01/23 13:25) Medication List - Last Reconciled 08/01/23 by Crystal Michael CNM baclofen 20 mg PO TID [Celebrate calcium/D PO] clotrimazole 1% 1 appl topical BID cyclobenzaprine 10 mg PO TID PRN hydroxyzine pamoate 50 mg PO BID PRN lidocaine 5% 1 patch topical DAILY tdnsmlzvbico-kzd-ewew-FA-vit K 45 mg iron- 800 mcg-120 mcg (Bariatric Multivitamins) caps PO trazodone 50 - 100 mg PO BEDTIME PRN Is last menstrual period known: Yes Last menstrual period: 07/25/23 Do you need a note to return to daycare/school/sports/work: No HPI HPI CRISTELA: Details: Patient is here for test of cure for trichomoniasis she took the metronidazole and she notices an improvement in her discharge she also had BV and the metronidazole treat both. She is no longer in contact with the partner who she believes gave her the trich her last cut tech was 3 months ago. She is open to getting blood tests for HIV etc. but she has not sure if her doctor order them she is going to be going for her primary care blood work this week her primary care providers through the [facility] system reviewed and orders noted for HIV hep B hep C and syphilis in the system so she will be getting all those blood test this week Test of cure was done today for trichomoniasis (and BV and yeast the discharge appeared very clear and healthy. She has had her tubes tied review condoms for safer sex. we will see her next year additionally her Pap was okay [facility] Medical History Abnormal Pap smear of cervix Rash Arm erythema Excess skin of upper extremity Overweight (BMI 25.0-29.9) Intestinal malabsorption following gastrectomy Surgical History History of breast lift H/O breast augmentation History of loop electrical excision procedure (LEEP) History of sleeve gastrectomy Hx of dilation and curettage History of ear surgery Hx of breast reduction, elective Hx of tubal ligation Family History Father Type 2 diabetes mellitus Hypertension Mother Obesity Hypertension Son Obesity Son No problems noted. Daughter No problems noted. Brother No problems noted. Brother No problems noted. Sister No problems noted. 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 pap & 2018 CIN3) Physical Exam Vital Signs: Last Vital Signs BP 110/68 08/01/23 13:25 BMI result Body Mass Index 29.3 Results Reviewed Results Reviewed: Name: Shanae Smith Age/Sex: 38/F Attending: Crystal Michael CNM : 1985 Submitted by: Crystal Michael CNM Copies to: Nely White DO MR #: [id number] Status: DEP REF Collected: 06/27/23 Location: [facility]LAB Received: 06/28/23 Interpretation Satisfactory for evaluation. Negative for intraepithelial lesion or malignancy. Microorganisms consistent with Trichomonas vaginalis. HPV mRNA E6/E7: NOT DETECTED This assay detects E6/E7 viral messenger RNA (mRNA) from 14 high-risk HPV types (16, 18, 31, 33, 35, 39, 45, 51, 52, 56, 58, 59, 66, 68) HPV testing performed by [facility], [place], [place]. See reference laboratory portion of the EMR for entire report. Clinical Information LMP: 05/30/2023 Previous PAP test: 02/18/2022, WNL Other surgery: 2020, leep Other history:2017, DIMITRY I Material Received ThinPrep-Cervical Copies To Nely White [address] [place] [address] Payne [address] [place] [address] Electronically Signed By: Celina Rush 07/15/23 8829 The Pap Test is a screening procedure with the inherent possibility of both false negative and false positive results. Results should be interpreted in the context of historic and current clinical findings. Reliability of the Pap Test is enhanced by performing the test on a Patient: Shanae Smith Age/Sex: 38/F MR#: [id number] Page 1 of 2 RUN: 08/01/23 0169 PAGE 1 [facility] [address] [place] [phone] Autoglazier: Terry Pelaez M.D. Specimen Inquiry Name: Shanae Smith Age/Sex: 38/F : 1985 Unit#: [id number] Attend Dr: GrahamCrystal CNM Re06/27/23 Status: DEP REF Location: [facility] Disch: SPEC : [id number] KRISTINA: 06/27/23-UNK STATUS: COMP REQ : [id number] RECD: 06/27/23-[address]: FernandaCrystal CNM COMP: 06/28/23-1507 ENTERED: 06/27/23-[address]: Nely White DO ORDERED: BV Panel Test Result Flag Reference Trichomonas DNA Positive A Negative Gardnerella DNA Positive A Negative Kami DNA Negative Negative Assessment & Plan Assessment & Plan (1) Trichomoniasis: Comment: test of cure 08/01/23 Code(s): A59.9 - Trichomoniasis, unspecified Category: Medical (2) Abnormal Pap smear of cervix: Comment: DIMITRY 3 2017-LEEP. Pap neg/neg 2018, pap ([facility]) 2019-neg/neg, 2020-ASCUS/neg, 2021- neg/neg, repeat 01/2023...; 06/27/2023 Pap is negative with negative HPV, pos trich; Code(s): R87.619 - Unspecified abnormal cytological findings in specimens from cervix uteri Category: Medical Plan Patient is here for test of cure for trichomoniasis she took the metronidazole and she notices an improvement in her discharge she also had BV and the metronidazole treat both. She is no longer in contact with the partner who she believes gave her the trich her last cut tech was 3 months ago. She is open to getting blood tests for HIV etc. but she has not sure if her doctor order them she is going to be going for her primary care blood work this week her primary care providers through the [facility] system reviewed and orders noted for HIV hep B hep C and syphilis in the system so she will be getting all those blood test this week Test of cure was done today for trichomoniasis (and BV and yeast the discharge appeared very clear and healthy. She has had her tubes tied review condoms for safer sex. we will see her next year additionally her Pap was okay Coding Level of Care Code Est Pt Level 3 (64404) Diagnoses Trichomoniasis A59.9 Abnormal Pap smear of cervix R87.619
[2023-08-01 13:25] VITALS: BP 110/68; BMI 29.3
== END 2023-08-01 14:06 | disposition home or self-care (01) ==
LOC: HO.HWSM 13:23
PROVIDERS: PCP Family Medicine; Visit Provider Advanced Practice Midwife
DX: A59.9 Trichomoniasis, unspecified (principal); R87.619 Unspecified abnormal cytological findings in specimens from cervix uteri
CPT/HCPCS: 99213

== ENCOUNTER 2023-08-01 13:23 | Outpatient (REF) | payer MEDICAID, SELFPAY ==
[2023-08-02 05:39] LABS: CT PCR NOT DETECTED (Not Detect.); NG PCR NOT DETECTED (Not Detect.)
[2023-08-02 10:52] LABS: Bacterial Vaginosis PCR NEGATIVE (Negative); Candida Group PCR DETECTED (Not Detect); Candida glab krusei PCR NOT DETECTED (Not Detect); Trichomonas vaginalis PCR NOT DETECTED (Not Detect)
== END 2023-08-01 13:24 | disposition home or self-care (01) ==
LOC: HO.LAB 13:23
PROVIDERS: PCP Family Medicine; Visit Provider Advanced Practice Midwife
DX: A59.9 Trichomoniasis, unspecified (principal); Z20.2 Contact with and (suspected) exposure to infections with a predominantly sexual mode of transmission
CPT/HCPCS: 0352U; 0353U; 99212

== ENCOUNTER 2023-08-02 10:44 | Outpatient (REF) | payer MEDICAID, SELFPAY ==
[2023-08-02 12:39] LABS: C Reactive Protein < 0.10 mg/dL (< or = 0.50)
[2023-08-02 13:07] LABS: Insulin 3 uU/mL (2-29)
[2023-08-02 13:15] LABS: Folate 11.7 ng/mL (> or = 4.0); Vitamin B12 603 pg/mL (200-900)
[2023-08-06 15:54] LABS: Vitamin A 44 mcg/dL (38-98)
== END 2023-08-02 10:45 | disposition home or self-care (01) ==
LOC: HO.HHCL 10:44
PROVIDERS: Visit Provider Physician Assistant Surgical
DX: Z90.3 Acquired absence of stomach [part of] (principal)
CPT/HCPCS: 36415; 82607; 82746; 83525; 84425; 84590; 84630; 86140

== ENCOUNTER 2023-08-09 10:30 | Outpatient (REF) | payer MEDICAID, SELFPAY ==
[2023-08-14 16:08] LABS: Zinc 80 mcg/dL (60-130)
[2023-08-15 15:13] LABS: Vitamin B1 16 nmol/L (8-30)
== END 2023-08-09 10:31 | disposition home or self-care (01) ==
LOC: HO.HHCL 10:30
PROVIDERS: Visit Provider Physician Assistant Surgical
DX: Z90.3 Acquired absence of stomach [part of] (principal)
CPT/HCPCS: 36415; 84425; 84630

== ENCOUNTER 2023-08-14 13:28 | Outpatient (REF) | payer MEDICAID, SELFPAY ==
--- NOTE | ~2023-08-14 | XR_ITS ---
EXAMINATION: XR KNEE, LEFT CLINICAL INFORMATION: Left knee pain for 2 weeks COMPARISON: Left knee 05/09/2014 TECHNIQUE: Four views of the left knee. FINDINGS: No fracture or joint effusion. Alignment is anatomic. Joint spaces are maintained. Slight narrowing in the medial compartment mentioned on the 05/09/2014 report is not appreciated on the current study. No abnormal soft tissue calcification. XR/XR knee LT 4V IMPRESSION: No acute findings.
[2023-08-14 18:43] LABS: CT PCR NOT DETECTED (Not Detect.); NG PCR NOT DETECTED (Not Detect.)
== END 2023-08-14 13:29 | disposition home or self-care (01) ==
LOC: HO.HHCL 13:28
PROVIDERS: Visit Provider Family Medicine
DX: Z78.9 Other specified health status (principal); M25.562 Pain in left knee
CPT/HCPCS: 0353U; 73564

== ENCOUNTER 2023-08-15 10:21 | Outpatient (REF) | payer MEDICAID, SELFPAY ==
[2023-08-15 12:00] LABS: Hematocrit 33.3 % (37.0-47.0); Hemoglobin 11.3 g/dl (12.0-16.0); Mean Corpuscular HGB Conc 33.9 g/dl (31.0-35.0); Mean Corpuscular Hemoglobin 30.3 pg (27.0-33.0); Mean Corpuscular Volume 89.3 fL (80.0-98.0); Mean Platelet Volume 10.2 fL (9.4-12.3); Platelet Count 220 X10*3/uL (160-400); Red Blood Count 3.73 X10*6/uL (4.20-5.50); Red Cell Distribution Width 12.6 % (11.0-16.0); White Blood Count 4.8 X10*3/uL (4.8-10.8)
[2023-08-15 12:35] LABS: Alanine Aminotransferase 11 U/L (0-31); Albumin Level 4.2 g/dL (3.5-5.0); Alkaline Phosphatase 47 U/L (39-117); Anion Gap 7 (12-20); Aspartate Amino Transferase 17 U/L (5-31); Bilirubin Direct 0.2 mg/dL (0.0-0.5); Bilirubin Total 0.4 mg/dL (0.0-1.0); Blood Urea Nitrogen 14 mg/dL (9-16); Calcium 9.7 mg/dL (8.4-10.2); Carbon Dioxide 28 mmol/L (22-29); Chloride 110 mmol/L (96-108); Cholesterol 155 mg/dL (<200); Estimated Glomerular Filt Rate > 60; Glucose Random 85 mg/dL (60-115); HDL Cholesterol 66 mg/dL (>40); LDL Cholesterol Calculated 82 mg/dL (<100); Potassium 4.2 mmol/L (3.3-5.1); Sodium 141 mmol/L (135-145); Total Protein 7.2 g/dL (6.5-8.0); Triglycerides 36 mg/dL (<150)
[2023-08-15 12:41] LABS: Estimated Average Glucose 108 mg/dL; Hemoglobin A1c % 5.4 % (<6.0)
[2023-08-15 12:50] LABS: Thyroid Stimulating Hormone 1.26 uIU/mL (0.32-4.0); Vitamin D 25-OH Total 25.4 ng/mL (>30)
[2023-08-16 04:39] LABS: HBS Num1 1.03 mIU/mL (0-7.99); HBsAGNum1 0.29 S/CO (0.00-0.99); HIV AB/AG Nonreactive (Nonreactive); HIV Num 1 0.06 S/CO (0.00-0.99); Hepatitis B Surface Antigen Negative (Negative); ~HepC Num1 0.09 S/CO (0.00-0.79); ~Hepatitis B Surface Antibody NONREACTIVE (Nonreactive); ~Hepatitis C Antibody Nonreactive (Nonreactive)
[2023-08-16 17:34] LABS: RPR Rapid Plasma Reagin NON-REACTIVE (NON-REACTIVE)
== END 2023-08-15 10:22 | disposition home or self-care (01) ==
LOC: HO.HHCL 10:21
PROVIDERS: Visit Provider Family Medicine
DX: Z78.9 Other specified health status (principal)
CPT/HCPCS: 36415; 80048; 80061; 80076; 82306; 83036; 84439; 84443; 85027; 86592; 86706; 86803; 87340; 87389

== ENCOUNTER 2023-08-16 14:40 | Outpatient (AMB) | payer MEDICAID, SELFPAY ==
--- NOTE | 2023-08-16 14:53 | MHC.OFFVISWM ---
VS Expanded 08/16/23 15:00 BP 124/71 Blood Pressure Location Rt brachial Blood Pressure Position Sitting Pulse 85 Pulse Source Pulse Oximeter Temp 96.7 F L Temperature Source Temporal Artery Scan Pulse Oximetry 99 Oxygen Delivery Method Room Air Height 5 ft 4 in Weight 171 lb BMI 29.3 Body Fat % 35.2 Body Fat Mass 60.2 Fat Free Mass 110.6 Visceral Fat Rating 6.0 Body Water % 46.3 Body Water Mass 79.2 Muscle Mass/Score 105.2 Basal Metabolic Rate/Score 1,519 Intake Visit Reasons: (OV) PO M LSG 04/09/19 Allergies No Known Allergies [No Known Allergies*] Allergy (Verified 08/16/23 14:55) Medication List - Last Reconciled 08/16/23 by JESUS Vieira [Celebrate calcium/D PO] clotrimazole 1% 1 appl topical BID cyclobenzaprine 10 mg PO TID PRN hydroxyzine pamoate 50 mg PO BID PRN lidocaine 5% 1 patch topical DAILY hmtzrtcvtapz-hbw-zbjr-FA-vit K 45 mg iron- 800 mcg-120 mcg (Bariatric Multivitamins) caps PO trazodone 50 - 100 mg PO BEDTIME PRN HPI Comments Details: Pt is s/p LSG 04/09/2019. Weight gain of 10.8lbs since last OV in February. Pt reports she was in an emotional state and was difficult to follow meal plan, exercise. Notes issues with excess skin of upper arms. Sometimes gets rashes due to chafing. Movement, including lifting her arms over her head, is more difficult and walking/exercise is more difficult and painful. Has to wear special clothing with long loose sleeves as other shirts don't fit well or cause discomfort. Has tried OTC topical treatments but this has not resolved the issue. Also has similar problems of upper inner thighs. Experiences chafing due to excess skin rubbing together when walking. Walking has become painful and more difficult due to chafing and rashes. Has to wear special clothing to prevent rubbing together (Lycra). Cannot wear shorts in summer time due to bare skin making contact. Has tried OTC topical treatments but this has not resolved the issue. Current meal plan: breakfast- eggs with whole grain bread will also have a green juice lunch- fish, pork, or chicken, vegetables, little bit of rice dinner- sometimes nothing, sometimes similar to lunch drinking adequate water Exercise- likes to walk, 5 days per week [facility] Medical History Abnormal Pap smear of cervix Rash Arm erythema Excess skin of upper extremity Overweight (BMI 25.0-29.9) Intestinal malabsorption following gastrectomy Surgical History History of breast lift H/O breast augmentation History of loop electrical excision procedure (LEEP) History of sleeve gastrectomy Hx of dilation and curettage History of ear surgery Hx of breast reduction, elective Hx of tubal ligation Family History Father Type 2 diabetes mellitus Hypertension Mother Obesity Hypertension Son Obesity Son No problems noted. Daughter No problems noted. Brother No problems noted. Brother No problems noted. Sister No problems noted. 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 Wilson Code(s): Z90.3 - Acquired absence of stomach [part of] Category: Surgical (3) Overweight (BMI 25.0-29.9): Code(s): E66.3 - Overweight Category: Medical Plan Discussed that ideal plan will incorporate mostly protein bars and shakes with one small meal. Goal weight < 157lbs prior to surgery for BMI < 27. Orgain shake- 2 scoops in 8oz UAM Orgain shake- 1 scoop in 8oz UAM Protein bar with 20g protein Meal of 6f protein, 6f salad/veg Clotrimazole ointment refilled. Labs reviewed, some vit levels still pending, vit D supplement ordered. RTC 6 weeks. Sent meal plan to pt and encouraged her to reach out between appts with any concerns. Patient is overweight and is not considered stable at this time. I spent a total of 30 minutes reviewing/updating records, examining the patient and counseling the patient on weight management as detailed above. Medications: New cholecalciferol (vitamin D3) 50 mcg PO DAILY 90 caps 3RF Refilled clotrimazole 1% 1 appl topical BID 45 grams 3RF
[2023-08-16 15:00] VITALS: BP 124/71; PULSE 85; TEMP 35.9; O2SAT 99; BMI 29.3
== END 2023-08-16 15:42 | disposition home or self-care (01) ==
PROVIDERS: PCP Family Medicine; Visit Provider Physician Assistant Surgical
DX: L98.7 Excessive and redundant skin and subcutaneous tissue (principal); Z90.3 Acquired absence of stomach [part of]; E66.3 Overweight
CPT/HCPCS: 99214

== ENCOUNTER → 2023-08-16 14:40 | Outpatient (BNVA) | payer MEDICAID, SELFPAY | PROVIDERS: PCP Family Medicine; Visit Provider Physician Assistant Surgical | DX: E66.3 Overweight (principal); L98.7 Excessive and redundant skin and subcutaneous tissue; Z90.3 Acquired absence of stomach [part of]; Z98.84 Bariatric surgery status; Z68.29 Body mass index [BMI] 29.0-29.9, adult | CPT/HCPCS: 99212 ==

== ENCOUNTER 2023-08-21 10:27 | Outpatient (REF) | payer MEDICAID, SELFPAY ==
[2023-08-21 12:46] LABS: INTERNATIONAL NORM RATIO 0.8 (0.9-1.1); Prothrombin Time 9.7 SEC (11.1-13.3)
[2023-08-21 12:48] LABS: Partial Thromboplastin Time 30.1 SEC (26.0-36.8)
[2023-08-21 13:46] LABS: HCG Quantitative < 2 mIU/mL
== END 2023-08-21 10:28 | disposition home or self-care (01) ==
LOC: HO.HHCL 10:27
PROVIDERS: Visit Provider General Practice
DX: Z01.812 Encounter for preprocedural laboratory examination (principal)
CPT/HCPCS: 36415; 84702; 85610; 85730

== ENCOUNTER 2023-10-04 11:45 | Outpatient (AMB) | payer MEDICAID, SELFPAY ==
--- NOTE | 2023-10-04 11:48 | A.OFFVIS_ITS ---
Intake Visit Reasons: (TV) PO M LSG 04/09/19 Product Introduction Manager Required: Yes Allergies No Known Allergies [No Known Allergies*] Allergy (Verified 08/16/23 14:55) Medication List - Last Reconciled 10/04/23 by JESUS Vieira [Celebrate calcium/D PO] cholecalciferol (vitamin D3) 50 mcg PO DAILY clotrimazole 1% 1 appl topical BID cyclobenzaprine 10 mg PO TID PRN hydroxyzine pamoate 50 mg PO BID PRN lidocaine 5% 1 patch topical DAILY xqeysezhnyum-tnm-lzer-FA-vit K 45 mg iron- 800 mcg-120 mcg (Bariatric Multivitamins) caps PO trazodone 50 - 100 mg PO BEDTIME PRN HPI Comments Details: Pt is s/p LSG 04/09/2019. Pt unsure of current weight, does not have a scale at home. Was 171 at last visit in July. Notes issues with excess skin of upper arms. Sometimes gets rashes due to chafing. Movement, including lifting her arms over her head, is more difficult and walking/exercise is more difficult and painful. Has to wear special clothing with long loose sleeves as other shirts don't fit well or cause discomfort. Has tried topical treatments including clotrimazole but this has not resolved the issue. Also has similar problems of upper inner thighs. Experiences chafing due to excess skin rubbing together when walking. Walking has become painful and more difficult due to chafing and rashes. Has to wear special clothing to prevent rubbing together (Lycra). Cannot wear shorts in summer time due to bare skin making contact. Has tried topical treatments including clotrimazole but this has not resolved the issue. Current meal plan: Orgain shake- 2 scoops in 8oz UAM Orgain shake- 1 scoop in 8oz UAM Protein bar with 20g protein Meal of 6f protein, 6f salad/veg PFSH Medical History Abnormal Pap smear of cervix Rash Arm erythema Excess skin of upper extremity Overweight (BMI 25.0-29.9) Intestinal malabsorption following gastrectomy Surgical History History of breast lift H/O breast augmentation History of loop electrical excision procedure (LEEP) History of sleeve gastrectomy Hx of dilation and curettage History of ear surgery Hx of breast reduction, elective Hx of tubal ligation Family History Father Type 2 diabetes mellitus Hypertension Mother Obesity Hypertension Son Obesity Son No problems noted. Daughter No problems noted. Brother No problems noted. Brother No problems noted. Sister No problems noted. 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 Sexual orientation: Straight/Heterosexual Gender identity: Female Female Reproductive History Menstrual Age of Menarche: 12 Telehealth Telehealth Telehealth Platform: Telephone Location of provider rendering services: practice address Location of patient: address on file Patient Identification confirmed using: Name, : Yes Telehealth method: voice only Patient verbally consented to treatment: Yes Patient verbally consented to billing insurance company: Yes Patient informed of any privacy concerns related to visit: Yes Minutes spent on Phone/Video with Pt.: 18 Assessment & Plan Assessment & Plan (1) Excess skin: Code(s): L98.7 - Excessive and redundant skin and subcutaneous tissue Category: Medical (2) Overweight (BMI 25.0-29.9): Code(s): E66.3 - Overweight Category: Medical (3) History of sleeve gastrectomy: Comment: 04/18, Dr. Wilson Code(s): Z90.3 - Acquired absence of stomach [part of] Category: Surgical Plan Pt wants to adjust meal plan, using Premier powder: 2 eggs with veg Premier shake w/ 1 scoop Quest bar 1 meal 6f/6f goal 70g protein meal plan texted to pt Pt continues to have issues with excess skin resulting in frequent painful rashes and chafing of both upper arms and legs, refractory to topical treatment and requiring the use of special clothing to try to prevent pain and discomfort. Pt requests refill of clotrimazole ointment. She will come in for a weight check in office. RTC 6 weeks for an in person appt for physical exam and possible photographs if pt is ready to submit to insurance. Goal weight 157 or less for BMI 27. I spent a total of 30 minutes reviewing/updating records, examining the patient and counseling the patient on weight management as detailed above. Medications: Refilled clotrimazole 1% 1 appl topical BID 45 grams 3RF
== END 2023-10-04 12:22 | disposition home or self-care (01) ==
LOC: HO.HBS 12:21
PROVIDERS: PCP Family Medicine; Visit Provider Physician Assistant Surgical
DX: L98.7 Excessive and redundant skin and subcutaneous tissue (principal); E66.3 Overweight; Z90.3 Acquired absence of stomach [part of]
CPT/HCPCS: 99214

== ENCOUNTER → 2023-10-04 11:45 | Outpatient (BNVA) | payer MEDICAID, SELFPAY | PROVIDERS: PCP Family Medicine; Visit Provider Physician Assistant Surgical | DX: L98.7 Excessive and redundant skin and subcutaneous tissue (principal); E66.3 Overweight; Z90.3 Acquired absence of stomach [part of] ==

== ENCOUNTER 2023-10-27 10:00 | Outpatient (RCR) | payer MEDICAID, SELFPAY | END 2023-11-09 16:39 | disposition home or self-care (01) | LOC: HO.PT 10:00 | PROVIDERS: PCP Family Medicine; Visit Provider Internal Medicine | DX: M25.562 Pain in left knee (principal) | CPT/HCPCS: 97110; 97140; 97161 ==

== ENCOUNTER 2023-11-20 09:57 | Outpatient (AMB) | payer MEDICAID, SELFPAY ==
--- NOTE | 2023-11-20 09:26 | A.OFFVIS_ITS ---
VS Expanded 11/20/23 09:45 Height 5 ft 4 in Weight 175 lb BMI 30.0 Intake Visit Reasons: TV PO M 04/09/19 Preschool Principal Required: Yes Preschool Principal Services: Preschool Principal Present Preschool Principal Name: Nae [id number] Maria M Information Interpreted: clinical only Allergies No Known Allergies [No Known Allergies*] Allergy (Verified 08/16/23 14:55) Medication List - Last Reconciled 11/20/23 by JESUS Vieria [Celebrate calcium/D PO] cholecalciferol (vitamin D3) 50 mcg PO DAILY clotrimazole 1% 1 appl topical BID cyclobenzaprine 10 mg PO TID PRN hydroxyzine pamoate 50 mg PO BID PRN lidocaine 5% 1 patch topical DAILY grrvigvbzaad-gcj-ouaa-FA-vit K 45 mg iron- 800 mcg-120 mcg (Bariatric Multivitamins) caps PO trazodone 50 - 100 mg PO BEDTIME PRN HPI Comments Details: This?is a 38?yo female who is s/p LSG 04/09/2019. Last known weight 171 in July. No complaints of nausea, emesis, abdominal pain or reflux. Reports constipation, sometimes goes up to a week between BMs. Present meal plan includes: 2 eggs with veg or protein shake before lunch eats part of a protein bar (10g) Premier shake w/ 2 scoops Quest bar (21G) 1 meal 6f/6f goal 70g protein sometimes has fruit after dinner (banana) Exercise routine includes: treadmill 1 hour at incline, 4-5x/week 300-400 ranjith Notes issues with excess skin of upper arms. Sometimes gets rashes due to chafing. Movement, including lifting her arms over her head, is more difficult and walking/exercise is more difficult and painful. Has to wear special clothing with long loose sleeves as other shirts don't fit well or cause discomfort. Has tried topical treatments including clotrimazole but this has not resolved the issue. Also has similar problems of upper inner thighs. Experiences chafing due to excess skin rubbing together when walking. Walking has become painful and more difficult due to chafing and rashes. Has to wear special clothing to prevent rubbing together (Lycra). Cannot wear shorts in summer time due to bare skin making contact. Has tried topical treatments including clotrimazole but this has not resolved the issue. [facility], [facility] Medical History Abnormal Pap smear of cervix Rash Arm erythema Excess skin of upper extremity Overweight (BMI 25.0-29.9) Intestinal malabsorption following gastrectomy Surgical History History of breast lift H/O breast augmentation History of loop electrical excision procedure (LEEP) History of sleeve gastrectomy Hx of dilation and curettage History of ear surgery Hx of breast reduction, elective Hx of tubal ligation Family History Father Type 2 diabetes mellitus Hypertension Mother Obesity Hypertension Son Obesity Son No problems noted. Daughter No problems noted. Brother No problems noted. Brother No problems noted. Sister No problems noted. 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 Wilson Code(s): Z90.3 - Acquired absence of stomach [part of] Category: Surgical (3) Excess skin: Code(s): L98.7 - Excessive and redundant skin and subcutaneous tissue Category: Medical Plan New meal plan: Premier shake 1 scoop Half Quest bar Premier shake 1 scoop Half quest bar Meal 6f/6f If having fruit, avoid bananas, use berries/apple/kiwi instead meal plan texted to pt Pt continues to have issues with excess skin resulting in frequent painful rashes and chafing of both upper arms and legs, refractory to topical treatment and requiring the use of special clothing to try to prevent pain and discomfort. RTC 6-8 weeks, should be seen for person appt for weight check, physical exam and possible photographs if pt is ready to submit to insurance. Goal weight 157 or less for BMI 27. I spent a total of 30 minutes reviewing/updating records, examining the patient and counseling the patient on weight management as detailed above. Medications: New inulin 2 grams PO DAILY 90 tabs 3RF docusate sodium 100 mg PO BID 90 caps 1RF
== END 2023-11-20 10:06 | disposition home or self-care (01) ==
LOC: HO.HBS 09:57
PROVIDERS: PCP Family Medicine; Visit Provider Physician Assistant Surgical
DX: E66.3 Overweight (principal); Z90.3 Acquired absence of stomach [part of]; L98.7 Excessive and redundant skin and subcutaneous tissue
CPT/HCPCS: 99214

== ENCOUNTER → 2023-11-20 09:57 | Outpatient (BNVA) | payer MEDICAID, SELFPAY | PROVIDERS: PCP Family Medicine; Visit Provider Physician Assistant Surgical ==

== ENCOUNTER 2023-11-21 14:12 | Outpatient (REF) | payer MEDICAID, SELFPAY ==
[2023-11-21 17:02] LABS: Hematocrit 39.8 % (37.0-47.0); Hemoglobin 13.3 g/dl (12.0-16.0); Mean Corpuscular HGB Conc 33.4 g/dl (31.0-35.0); Mean Corpuscular Hemoglobin 29.3 pg (27.0-33.0); Mean Corpuscular Volume 87.7 fL (80.0-98.0); Mean Platelet Volume 10.7 fL (9.4-12.3); Platelet Count 235 X10*3/uL (160-400); Red Blood Count 4.54 X10*6/uL (4.20-5.50); White Blood Count 6.2 X10*3/uL (4.8-10.8)
[2023-11-21 17:28] LABS: B Type Natriuretic Peptide < 10 pg/mL (<100)
[2023-11-21 18:03] LABS: Folate 10.6 ng/mL (> or = 4.0); Vitamin B12 401 pg/mL (200-900)
[2023-11-21 18:37] LABS: Anion Gap 12 (12-20); Blood Urea Nitrogen 21 mg/dL (9-16); Calcium 10.6 mg/dL (8.4-10.2); Carbon Dioxide 24 mmol/L (22-29); Chloride 107 mmol/L (96-108); Estimated Glomerular Filt Rate > 60; Ferritin 23 ng/mL (10-122); Glucose Random 85 mg/dL (60-115); Iron 80 mcg/dL (30-160); Percent Iron Saturation 23 % (15-50); Potassium 4.1 mmol/L (3.3-5.1); Sodium 139 mmol/L (135-145); Total Iron Binding Capacity 355 mcg/dL (228-428); Unsaturated Iron Binding 275 ug/dL
[2023-11-22 08:47] LABS: HBS Num1 0.48 mIU/mL (0-7.99); HBc Num1 0.12 S/CO (0.00-0.79); HBsAGNum1 0.34 S/CO (0.00-0.99); Hepatitis B Core Antibody Nonreactive (Nonreactive); Hepatitis B Surface Antigen Negative (Negative); ~Hepatitis B Surface Antibody NONREACTIVE (Nonreactive)
[2023-11-22 20:22] LABS: Rubella IgG Antibody 6.14 Index; Rubeola IgG (Measles) >300.00 AU/mL
[2023-11-24 16:12] LABS: TS Negative Control Passed; TS Panel A 0; TS Panel B 0; TS Positive Control Passed; TSpotTB Negative (Negative)
== END 2023-11-21 14:13 | disposition home or self-care (01) ==
LOC: HO.HHCL 14:12
PROVIDERS: Visit Provider Family Medicine
DX: M79.89 Other specified soft tissue disorders (principal); Z13.9 Encounter for screening, unspecified; D64.9 Anemia, unspecified
CPT/HCPCS: 36415; 80048; 82607; 82728; 82746; 83540; 83880; 85027; 86481; 86704; 86706; 86735; 86762; 86765; 86787; 87340

== ENCOUNTER 2023-11-24 14:33 | Outpatient (REF) | payer MEDICAID, SELFPAY ==
[2023-11-27 10:57] LABS: TS Negative Control Passed; TS Panel A 0; TS Panel B 0; TS Positive Control Passed; TSpotTB Negative (Negative)
== END 2023-11-24 14:34 | disposition home or self-care (01) ==
LOC: HO.HHCL 14:33
PROVIDERS: Visit Provider Family Medicine
DX: Z13.9 Encounter for screening, unspecified (principal)
CPT/HCPCS: 36415; 86481

== ENCOUNTER 2023-11-28 10:14 | Outpatient (AMB) | payer MEDICAID, SELFPAY ==
--- NOTE | 2023-11-28 10:16 | MHC.OFFVIS ---
Vital Signs 11/28/23 10:23 Height 5 ft 4 in Weight 190 lb BMI 32.6 BP 116/57 L Blood Pressure Location Rt brachial Position Sitting Pulse 82 Intake Visit Reasons: hx of abdominoplasy, fluid collection Intake Note: Hx of abdominoplasty, fluid collection around umbilical area X2yrs. Patient c/o: area has been enlarging, burning sensation. Statistical Geneticist Required: Yes Statistical Geneticist Name: Yulissa CHRISTENSEN Accompanied by: Self / Same As Patient Allergies No Known Allergies [No Known Allergies*] Allergy (Verified 11/28/23 10:22) HPI Comments Details: Patient was status post liposuction proximally 2 years ago. This was preceded 5 years ago by gastric bypass surgery. She now presents here because she has had several month history of to the right of umbilicus fullness/burning/discomfort. Because of persistence of symptoms she presents here for further evaluation. She is otherwise tolerating a diet. He is having regular bowel habits. She has put some weight on after the gastric bypass. Chart was reviewed and patient evaluated [facility] Medical History Abnormal Pap smear of cervix Rash Arm erythema Excess skin of upper extremity Overweight (BMI 25.0-29.9) Intestinal malabsorption following gastrectomy Surgical History History of breast lift H/O breast augmentation History of loop electrical excision procedure (LEEP) History of sleeve gastrectomy Hx of dilation and curettage History of ear surgery Hx of breast reduction, elective Hx of tubal ligation Family History Father Type 2 diabetes mellitus Hypertension Mother Obesity Hypertension Son Obesity Son No problems noted. Daughter No problems noted. Brother No problems noted. Brother No problems noted. Sister No problems noted. 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 Moderately sized pannus. Abdomen corpulent, benign. Patient has discomfort on the abdominal wall just to the right of the umbilicus but no obvious mass, hernia, or seroma was palpated. Assessment & Plan Assessment & Plan (1) Abdominal wall pain: Code(s): R10.9 - Unspecified abdominal pain Category: Surgical Plan Although clinically no obvious pathology was demonstrated, this area seems to bother the patient and I will order an ultrasound of the abdominal wall and direct further therapy based on these results. Patient understands and will see me after the study or p.r.n.. All questions answered. Coding Level of Care Code New Pt Level 4 (33208) Diagnoses Abdominal wall pain R10.9
[2023-11-28 10:23] VITALS: BP 116/57; PULSE 82; BMI 32.6
== END 2023-11-28 10:28 | disposition home or self-care (01) ==
PROVIDERS: PCP Family Medicine; Referring Provider Family Medicine; Visit Provider Surgery
DX: R10.9 Unspecified abdominal pain (principal)
CPT/HCPCS: 99204

== ENCOUNTER → 2023-11-28 10:14 | Outpatient (BNVA) | payer MEDICAID, SELFPAY | PROVIDERS: PCP Family Medicine; Visit Provider Surgery | DX: R10.9 Unspecified abdominal pain (principal); Z98.84 Bariatric surgery status | CPT/HCPCS: 99202 ==

== ENCOUNTER → 2023-11-30 13:04 | Outpatient (REF) | payer MEDICAID, SELFPAY ==
--- NOTE | 2023-11-30 13:08 | CA_ITS ---
Transthoracic Echocardiogram Patient (Last, First, Middle): Shanae Smith, Gender: Female Date of : 1985 Age: 38 Procedure Date: 11/30/2023 Procedure Type: Transthoracic Echocardiogram Location: OP Height: 162. 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 Normal LV systolic and diastolic function 2. Normal cardiac valvular Doppler hours 3. Normal RV systolic pressure with normal right atrial pressures 4. No gross pericardial effusion Findings Left Ventricle Normal left ventricular size, thickness, and systolic function. The visually estimated ejection fraction is between 55-60%. Regional wall motion abnormalities can not be excluded due to suboptimal endocardial definition. Diastolic function is normal for age. Right Ventricle Normal right ventricular cavity size and systolic function. Atria Both atria are normal in size. There is lipomatous hypertrophy of the interatrial septum. There is no evidence of interatrial shunt. Aortic Valve The aortic valve structure and function is likely normal. There is no aortic valve stenosis. There is no aortic valve regurgitation. Mitral Valve Likely normal mitral valve structure and function. There is no mitral valve regurgitation. There is no mitral valve stenosis. Pulmonic Valve The pulmonic valve was not well visualized. Tricuspid Valve Likely normal tricuspid valve structure and function. There is trace tricuspid valve regurgitation. The right ventricular systolic pressure is normal. The right ventricular systolic pressure is 19 mmHg. Normal right atrial pressure. There is no evidence of pulmonary hypertension. Great Vessels All visible segments of the aorta are normal in size. The pulmonary artery was not well visualized. There is no dilatation of the ascending aorta measuring 2.70 cm. Venous The inferior vena cava is normal in size and collapses greater than 50% with inspiration. Pericardium/Pleural There is no evidence of pericardial effusion. Prior Study Comparison No prior study available for comparison. Measurements 2D Linear Measurements IVSd: 1.14 0.6-0.9/0.6-1.0 cm LVIDd: 3.42 3.9-5.3/4.2-5.9 cm LVIDd Index: 1.79 2.4-3.2/2.2-3.1 cm/m2 LVIDs: 2.02 2.0-3.6 cm LVPWd: 0.96 0.7-1.1 cm LA Diam: 3.20 2.7-3.8/3.0-4.0 cm LAIDs Index: 1.68 1.5-2.3 cm/m2 LV Mass: 133.04 67-162/88-224 g LV Mass Index: 69.65 43-95/49-115 g/m2 LVOT Diam: 1.90 3.0+(-)1.3 cm 2D Systolic Function EF 4C: 62.20 >55% EF 2C: 56.50 >55% EF BiP: 58.80 >55% Mitral Valve MV Pk E: 0.86 MV PK A: 0.60 MV Decel Time: 192.00 E/A: 1.40 E'Lateral: 14.40 E'Medial: 9.79 E/E' Med: 8.80 E/E' Lat: 6.00 PHT: 56.00 MVA PHT: 3.93 Decel Will: 4.47 Aortic Valve AoV Pk Abel: 1.19 AoV Mn Abel: 0.82 AoV VTI: 0.23 AoV Pk Grad: 6.00 Aov Mn Grad: 3.00 KATTY Cont.VTI: 2.31 LVOT LVOT Pk Abel: 0.89 LVOT Mn Abel: 0.65 LVOT VTI: 0.19 LVOT Pk Grad: 3.00 LVOT Mn Grad: 2.00 LVOT Diam: 1.90 LVOT Area: 2.84 Diastolic Function MV Pk E: 0.86 MV Pk A: 0.60 E/A: 1.40 E'Medial: 9.79 E/E' Med: 8.80 E' Laterial: 14.40 E/E' Lat: 6.00 Right Ventricle TAPSE (mm): 17.50 TVS' Abel: 9.36 Tricuspid Valve TR Pk Abel: 2.01 TR Pk Grad: 16.00 RA Press: 3.00 RVSP: 19.00 Great Vessels Aorta Sinus of Valsalva: 2.70 2.0-3.5 cm Ao Asc: 2.70 2.1-3.4 cm Pulmonary Valve PV Pk Abel: 0.92 Peak PV Grad: 3.00 Updated in Other Vendor System with Status of Final Dominick Mcdonald MD electronically signed on 11/30/2023 2:45:20 PM with status of Final
== END ==
LOC: HO.CARD 13:04
PROVIDERS: PCP Family Medicine; Visit Provider Family Medicine
DX: R60.0 Localized edema (principal); R63.5 Abnormal weight gain
CPT/HCPCS: 93306

== ENCOUNTER → 2023-11-30 13:08 | Outpatient (BNV) | payer MEDICAID, SELFPAY | PROVIDERS: PCP Family Medicine; Visit Provider Internal Medicine Cardiovascular Disease | DX: M79.89 Other specified soft tissue disorders (principal) | CPT/HCPCS: 93306 ==

== ENCOUNTER 2023-12-27 14:02 | Outpatient (REF) | payer MEDICAID, SELFPAY | END 2023-12-27 14:03 | disposition home or self-care (01) | LOC: HO.HOSX 14:02 | DX: Z13.89 Encounter for screening for other disorder (principal) ==

== ENCOUNTER 2024-06-27 09:37 | Outpatient (AMB) | payer MEDICAID, SELFPAY ==
--- NOTE | 2024-06-27 09:40 | A.OFFVIS_ITS ---
Vital Signs 06/27/24 10:04 Height 5 ft 4 in Weight 172 lb BMI 29.5 BP 110/74 Intake Visit Reasons: annual Plaster Tender: Plaster Tender Present ([place]ita) Accompanied by: Self / Same As Patient Allergies No Known Allergies [No Known Allergies*] Allergy (Verified 06/27/24 09:42) Medication List - Last Reconciled 06/27/24 by Crystal Michael CNM [Celebrate calcium/D PO] cholecalciferol (vitamin D3) 50 mcg PO DAILY clotrimazole 1% 1 appl topical BID cyclobenzaprine 10 mg PO TID PRN docusate sodium 100 mg PO BID hydroxyzine pamoate 50 mg PO BID PRN inulin 2 grams PO DAILY lidocaine 5% 1 patch topical DAILY euqffrfxiczq-oka-yiji-FA-vit K 45 mg iron- 800 mcg-120 mcg (Bariatric Multivitamins) caps PO trazodone 50 - 100 mg PO BEDTIME PRN Is last menstrual period known: Yes Last menstrual period: 06/23/24 Post menopausal: No Patient : No HPI HPI annual: Details: 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 She said her primary doctor talked to her about a month and a half ago about an injectable to help her lose weight but it has not been approved by her insurance yet she does not have pre diabetes or any other c omorbidity. She has had gastric bypass surgery in the past as well as breast reduction and then breast augmentation and to lift procedures as well as liposuction in the past. She has not been doing any exercise other than walking she says she does know what to do for losing weight in terms of eating protein and healthy. She is with the same partner she has been and she does not have any particular worries sometimes she wonders if she might be having another infection but does not think that trichomoniasis has come back. She has just finished her period about 3 days ago and still has a little bit of brown discharge. She informed me that some black and blue marking on her right breast in 2 areas was because she had a ballpoint pen in her pocket and it broke and leaked onto her breast and she has been scrubbing to get the stain of the blue ink off for a few days. She absolutely denies any trauma. [facility]LY [facility] Medical History (Updated 06/27/24 @ 10:52 by Crystal Michael CNM) Abnormal Pap smear of cervix Rash Arm erythema Excess skin of upper extremity Overweight (BMI 25.0-29.9) Intestinal malabsorption following gastrectomy Surgical History History of breast lift H/O breast augmentation History of loop electrical excision procedure (LEEP) History of sleeve gastrectomy Hx of dilation and curettage History of ear surgery Hx of breast reduction, elective Hx of tubal ligation Family History Father Type 2 diabetes mellitus Hypertension Mother Obesity Hypertension Son Obesity Son No problems noted. Daughter No problems noted. Brother No problems noted. Brother No problems noted. Sister No problems noted. 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 Sexual orientation: Straight/Heterosexual Gender identity: Female Female Reproductive History Menstrual Age of Menarche: 12 Duration of menses: 3-5 days Date of last menstrual period: 06/23/24 control method: permanent sterilization Total pregnancies: 3 Full term: 3 Date of last pap smear: 06/27/23 (negative pap smear) History of abnormal pap smear: Yes Physical Exam Vital Signs: Last Vital Signs BP 110/74 06/27/24 10:04 BMI result Body Mass Index 29.5 Const Other: Patient has had bariatric surgery liposuction and breast reduction surgery and then breast augmentation and to lift procedures to her breasts. She has gained weight since all of the procedures. She also has a brownish staining from a cellulitis at the left border of the scars on the right breast and she also has blue markings towards the lower edge of the right breast from the blue ink that is splled on her breast. General: healthy appearing, comfortable, no acute distress, well developed and alert Nutritional Appearance: average body habitus Orientation/consciousness: patient oriented x3 Limitations: no limitations HEENT Head: Yes normocephalic Neck Neck: Yes normal visual inspection Chest Chest palpation & inspection: normal inspection of the chest Breast/axilla inspection: normal inspection of the breasts and normal inspection of the axillae Breast/axilla palpation: normal palpation of the breasts and normal palpation of the axillae Resp Effort & Inspection: normal respiratory effort GI Inspection: Yes normal to inspection, No Abdominal wall edema and No distended Palpation (GI): Soft to palpation and nontender Other: Normal external exam vagina is pink and moist there is a brown staining to the discharge consistent with recent end of menses cervix is very firm scarred status post LEEP procedures. Did not bleed with Pap cervix long close thick mobile for very firm uterus difficult to feel but feels midposition mobile nontender adnexa nontender good muscle tone. General: Yes bladder normal to palpation External Female Exam: normal external appearance and normal appearance of the urethra Speculum Exam - Vagina: normal appearance of the vagina, normal palpation and normal vaginal discharge Speculum Exam - Cervix: normal appearance of the cervix, normal palpation and nontender Bimanual exam- vagina & uterus: normal bimanual exam, normal palpation, uterine size normal, bladder normal to palpation, consistency normal, normal palpation, uterine mobility normal, uterine shape normal, No Cervical tenderness present, non-tender and no cervical motion tenderness Bimanual Exam- Adnexa, other: normal adnexae, no masses, normal and No adnexal tenderness Neuro General: patient oriented x3 Assessment & Plan Assessment & Plan (1) Abnormal Pap smear of cervix: Comment: DIMITRY 3 2017-LEEP. Pap neg/neg 2019, pap ([facility]) 2019-neg/neg, 2020-ASCUS/neg, 2021- neg/neg, repeat 01/2023...; 06/27/2023 Pap is negative with negative HPV, pos trich; Pap done 06/27/2024. Code(s): R87.619 - Unspecified abnormal cytological findings in specimens from cervix uteri Category: Medical (2) Encounter for annual routine gynecological examination: Code(s): Z01.419 - Encounter for gynecological examination (general) (routine) without abnormal findings Category: Medical (3) Hx of tubal ligation: Comment: 2017 Code(s): Z98.51 - Tubal ligation status Category: Surgical (4) Trichomoniasis: Comment: test of cure 08/01/23= neg./retesting done at visit 06/27/2024. Code(s): A59.9 - Trichomoniasis, unspecified Category: Medical (5) Hx of breast reduction, elective: Comment: 2011 Code(s): Z98.890 - Other specified postprocedural states Category: Surgical (6) H/O breast augmentation: Code(s): Z98.82 - Breast implant status Category: Surgical (7) History of breast lift: Code(s): Z98.890 - Other specified postprocedural states Category: Surgical (8) History of sleeve gastrectomy: Comment: 04/18, Dr. Wilson Code(s): Z90.3 - Acquired absence of stomach [part of] Category: Surgical (9) Overweight (BMI 25.0-29.9): Code(s): E66.3 - Overweight Category: Medical Plan -----Discussed in this visit the following: healthy balanced diet, regular and consistent exercise, getting recommended health screens, doing the best she can for her particular health concerns, kegel exercises, pap smear screening and followup recommendations, mammography screening and SBE, normal changes in cycles in her life stage--- . Discussed her history of gastric bypass surgery and cosmetic procedures for her breasts and body. She says that she does not have any comorbidities that would allow for prescription of weight loss medications. I did discuss with her that often it has not provided by insurance companies unless somebody does have something so I would recommend to her that she review her knowledge of healthy eating and exercise that she has a acquired through the years of her weight loss journey and resume those efforts as they are necessary as well in her journey.. Also at her next visit with her primary care provider to discuss getting mammogram to start at age 40.. Reviewed whether not she had any other concerned about any other STIs and she di d not. Testing was done today for her Pap smear because of her Pap smear history as well as screening for gonorrhea chlamydia trichomoniasis as well as bacterial vaginosis and yeast because she is still ending her menses with a brown discharge I did let her know that often bacterial vaginosis will be noted in the presence of blood. She would only need to treat for that if she had symptoms. Coding Level of Care Code Est Pt Prev Care [id number]) Diagnoses Abnormal Pap smear of cervix R87.619 Encounter for annual routine gynecological examination Z01.419 Hx of tubal ligation Z98.51 Trichomoniasis A59.9 Hx of breast reduction, elective Z98.890 H/O breast augmentation Z98.82 History of breast lift Z98.890 History of sleeve gastrectomy Z90.3 Overweight (BMI 25.0-29.9) E66.3
[2024-06-27 10:04] VITALS: BP 110/74; BMI 29.5
--- OUTSIDE RECORDS SUMMARY | 2024-06-27 10:34 | XMS_ITS | Encounter Summary ---
Author Organization [employer] Address [address] [facility] 7[address] [place] [address] Care Team Providers Care Supervisor Grips Name Role Phone Nely White DO Primary Care Provider [phone] Encounter Details Date Type Department Care Team (Late st Contact Info) Description 03/02/2022 Orders Only [facility] [address] [place] [address] Nely Rodriguez LPN Social History Tobacco Use Types Packs/Day Years Used Date Smoking Tobacco: Never Assessed Comments Unknown Sex and Gender Information Value Date Recorded Sex Assigned at Female 12/27/2021 10:21 AM EDT Legal Sex Female 10:21 AM EDT Gender Identity Female 12/27/2021 10:21 AM EDT Sexual Orientation Straight 12/27/2021 10 :21 AM EDT documented as of this encounter Plan of Treatment Upcoming Encounters Date Type Department Care Team (Late st Contact Info) Description 09/23/2024 11:00 AM EDT Office Visit [facility] [address] [place] [address] Mauricio, Teresita, OD [address] [place] [address] documented as of this encounter Visit Diagnoses Not on filedocumented in this encounter Care Teams Supervisor Grips Relationship Specialty Start Date End Date Nely White DO [address] [place] [address] PCP - General Family Medicine 02/27/18 documented as of this encounter
--- OUTSIDE RECORDS SUMMARY | 2024-06-27 10:34 | XMS_ITS | Encounter Summary ---
Author Organization [employer] Address [address] [facility] [address] 7[address] [place] [address] Care Team Providers Care Retail Area Manager Name Role Phone Nely White DO Primary Care Provider [phone] Encounter Details Date Type Department Care Team ([facility] st Contact Info) Description 11/21/2023 Orders Only [facility] [address] [place] [address] Nely White DO [address] [place], [place] [phone] Screening due (Primary Dx) Social History Tobacco Use Types Packs/Day Years Used Date Smoking Tobacco: Former Cigarettes Q uit: 06/07/2023 Passive Smoke Exposure: Past Alcohol Use Standard Drinks/Week Comments Never 0 (1 standard drink = 0.6 oz pur e alcohol) Alcohol Answer Date Recorded How often do you have a drink containing alcohol ? 4 10/20/2023 How many drinks containing a lcohol do you have on a typical day when you are drinking? 4 10/20/2023 How often do you have six or more drinks on one occasion? 1 10/20/2023 Depression Answer Date Recorded Patient Health Questionnaire-9 Score 0 07/31/2023 Patient Health Questionnaire-9 Score 0 07/31/2023 Last PHQ-9: Questionnaire Data Not on file 0 07/31/2023 Housing Stability Answer Date Recorded What is your housing situation today? I have cat ruiz 07/31/[address] you li ve. Do you have problems with any of the following? None of the above 07/31/2023 Food Insecurity Answer Date Recorded Within the past 12 months, y ou worried that your food would run out before you got money to buy more: Never True 07/31/2023 Within the past 12 months,th e food you bought just didn't last and you didn't have enough money to get more: Never True 04/2023 Transportation Answer Date Recorded In the past 12 months, has l ack of transportation kept you from medical appts, meetings, work or from getting things needed for daily living? No 07/31/2023 Utilities Answer Date Recorded In the past 12 months, has t he electric, gas, oil or water company threatened to shut off services in your home? No 07/31/2023 Depression Answer Date Recorded Patient Health Questionnaire-2 Score 0 07/31/2023 Comments Unknown Sex and Gender Information Value [...] Description 09/23/2024 11:00 AM EDT Office Visit [facility] [address] [place] [address] Mauricio, Teresita, OD [address] [place] [address] documented as of this encounter Procedures Procedure Name Priority Date/Time Associated Diagnosis Comments T-SPOT(R).TB Routine 11/21/2023 2:18 PM EDT Screening due MEASLES, MUMPS, AND RUBELLA (MMR) AB (IGG) PANEL, IMMUNE STATUS Routine 11/21/2023 2:18 PM EDT Screening due HEPATITIS B SURFACE ANTIGEN, EIA Routine 11/21/2023 2:18 PM EDT Screening due HEPATITIS B CORE AB TOTAL Routine 11/21/2023 2:18 PM EDT Screening due HEPATITIS B SURFACE ANTIBODY, QUALITATIVE Routine 11/21/2023 2:18 PM EDT Screening due VARICELLA ZOSTER ANTIBODY, IGG Routine 11/21/2023 2:18 PM EDT Screening due documented in this encounter Results * Measles, Mumps, and Rubella (MMR) Antibodies??(IgG) Panel, Immune Status (11/21/2023 2:18 PM EDT) Mumps Virus IgG Antibody 18.30 AU/mL [facility] Comment:AU/mL Interpretation ------- <9.00 Not consistent with immunity9.00-10.99 Equivocal>10.99 Consistent with immunityThe presence of mumps IgG antibody suggests immunizationor past or current infection with mumps virus. Rubella IgG Antibody 6.14 Index [facility] Comment:Index Interpretatio n ----- <0.90 Not consistent with immunity 0.90-0.99 Equivocal > or = 1.00 Consistent with immunityThe presence of rubella IgG antibody suggestsimmunization or past or current infection withrubella virus.THIS TEST WAS PERFORMED AT:[facility] [place] [id number] MEI MD Rubeola IgG (Measles) >300.00 AU/mL [facility] Comment:AU/mL Interpretation ----- <13.50 Not consistent with gfvkcqot62.50-16.49 Equivocal>16.49 Consistent with immunityThe presence of measles IgG suggests immunization orpast or current infection with measles virus.For additional information, please refer tohttp://education.Weichaishi.com/faq/ESE030(This link is being provided for informational/educational purposes only.) Blood Venous blood specimen / Unknown 11/21/2023 2:18 PM EDT 11/21/2023 4:49 PM EDT Nely Laracsak DO LAB BLOOD ORDERABLES Final R esult Performing Organization Address [facility]/ZIP Co de Phone Number [facility] [address] [place] [phone] * T-SPOT??.TB (11/21/2023 2:18 PM EDT) T Spot TB Negative Negative [facility] Comment:A negative test resu lt does not exclude the possibilityof exposure to or infection with Mycobacteriumtuberculosis (M. tuberculosis). Patients with recentexposure to TB infected individuals exhibiting anegative T-SPOT.TB result should be considered forretesting within 6 weeks or if other relevant clinicalsymptoms indicate. Results from T-SPOT.TB testing mustbe used in conjunction with each individual'sepidemiological history, current medical status,and results of other diagnostic evaluations.The T-SPOT.TB test is qualitative and results arereported as positive, borderline, or negative, giventhat the test controls perform as expected. In linewith the Centers for Disease Control and Prevention's2010 recommendation to report quantitative measurementsalongside the qualitative result, the laboratoryprovides spot counts for informational purposes only.The T-SPOT.TB test should not be interpreted as aquantitative test. TS PANEL A 0 [facility] TS PANEL B 0 [facility] Negative Control Passed [facility] Positive Control Passed [facility] Comment:For additional infor mation, please refer tohttp://education.Teros/faq/FBE789(This link is being provided for informational/educational purposes only.)THIS TEST WAS PERFORMED AT:[id number] [place] [id number] RICH MD,PHD 11/21/2023 2:18 PM EDT 11/21/2023 4:49 PM EDT Nely Cindy HARRY LAB BLOOD ORDERABLES Final R esult Performing Organization Address City/[facility]/ZIP Co de Phone Number [facility] [address] [place] [address] [phone] * Varicella Zoster Antibody, IgG (11/21/2023 2:18 PM EDT) Varicella IgG Antibody 16.70 S/CO [facility] Comment:Signal to Cut-off S/ CO Interpretation --------- <1.00 Negative - Antibody not detected > or = 1.00 Positive - Antibody detected A positive result indicates that the patient has antibody to VZV but does not differentiate between an active or past infection. The clinical diagnosis must be interpreted in conjunction with the clinical signs and symptoms of the patient. This assay reliably measures immunity due to previous infection but may not be sensitive enough to detect antibodies induced by vaccination. Thus, a negative result in a vaccinated individual does not necessarily indicate susceptibility to VZV infection. A more sensitive test for vaccination-induced immunity is Varicella Zoster Virus Antibody Immunity Screen, ACIF.THIS TEST WAS PERFORMED AT:[facility] [place] [id number] MEI MD Blood Venous blood specimen / Unknown 11/21/2023 2:18 PM EDT 11/21/2023 4:49 PM EDT Nely White DO LAB BLOOD ORDERABLES Final R esult Performing Organization Address City/[facility]/ZIP Co de Phone Number [facility] [address] [place] [phone] * Hepatitis B Core Antibody, Total (11/21/2023 2:18 PM EDT) Pathologist [facility] Hepatitis B Core Antibody Nonreactive Nonreactive [facility] Blood Venous blood specimen / Unknown 11/21/2023 2:18 PM EDT 11/21/2023 4:49 PM EDT Nely White DO LAB BLOOD ORDERABLES Final R esult [facility] [address] [place] [address] [phone] * Hepatitis B surface antigen, EIA (11/21/2023 2:18 PM EDT) Hepatitis B Surface Ag Negative Negative [facility] Blood Venous blood specimen / Unknown 11/21/2023 2:18 PM EDT 11/21/2023 4:49 PM EDT us Nely White DO LAB BLOOD ORDERABLES Final R esult Performing Organization Address City/[facility] Co de Phone Number [facility] [address] [place] [address] [phone] * Hepatitis B Surface Antibody, Qualitative (11/21/2023 2:18 PM EDT) ~Hepatitis B Surface Antibody NONREACTIVE Nonreactive [facility] Comment:Nonreactive: < 8.00 mIU/mL Blood Venous blood specimen / Unknown 11/21/2023 2:18 PM EDT 11/21/2023 4:49 PM EDT us Nely White DO LAB BLOOD ORDERABLES Final R esult Performing Organization Address City/[facility] Co de Phone Number [facility] [address] [place] [address] [phone] documented in this encounter Visit Diagnoses Diagnosis Screening due- Primary documented in this encounter Additional Health Concerns Assessment Noted Time PHQ-9 Depression Total Score: 0 07/31/19 24 10:39 AM EDT documented as of this encounter Care Teams Retail Area Manager Relationship Specialty Start Date End Date Nely White DO [address] [place] [phone] PCP - General Family Medicine 02/27/18 documented as of this encounter
--- OUTSIDE RECORDS SUMMARY | 2024-06-27 10:34 | XMS_ITS | Encounter Summary ---
Author Organization [employer] Address [address] [facility] [address] [place] [address] Care Team Providers Care Marketing Administrator Name Role Phone Gabymanuel Nely Primary Care Provider [phone] Encounter Details Date Type Department Care Team (Late st Contact Info) Description 07/28/2022 Orders Only [facility] [address] [place] [address] Georgi Izquierdo MD [address] [place] [address] Social History Tobacco Use Types Packs/Day Years Used Date Smoking Tobacco: Every Day Cigarettes Alcohol Use Standard Drinks/Week Comments Never 0 (1 standard drink = 0.6 oz pur e alcohol) Depression Answer Date Recorded Patient Health Questionnaire-9 Score 8 03/18/2022 Depression Answer Date Recorded Patient Health Questionnaire-2 Score 2 03/18/2022 Comments Unknown Sex and Gender Information Value Date Recorded Sex Assigned at Female 12/27/2021 10:21 AM EDT Legal Sex Female 10:21 AM EDT Gender Identity Female 12/27/2021 10:21 AM EDT Sexual Orientation Straight 12/27/2021 10 :21 AM EDT COVID-19 Exposure Response Date Recorded In the last 10 days, have yo u been in contact with someone who was confirmed or suspected to have Coronavirus/COVID-19? No / Unsure 07/27/2022 9:26 AM EDT documented as of this encounter Plan of Treatment Upcoming Encounters Date Type Department Care Team (Late st Contact Info) Description 09/23/2024 11:00 AM EDT Office Visit [facility] [address] [place] [address] Teresita Martínez, OD [address] [place] [address] documented as of this encounter Procedures Procedure Name Priority Date/Time Associated Diagnosis Comments BACTERIAL VAGINOSIS PANEL Routine 06/27/2023 12:00 AM EDT documented in this encounter Results * (ABNORMAL) Bacterial Vaginosis (06/27/2023 12:00 AM EDT) Trichomonas DNA Probe Positive(A) Negative [facility] Gardnerella DNA Probe Positive(A) Negative [facility] Kami DNA Probe Negative Negative [facility] 06/27/2023 06/27/2023 us Generic External Data Provider LAB MICROBIOLOGY - GENERAL ORDERABLES Final Result [facility] [address] [place] [address] [phone] documented in this encounter Visit Diagnoses Not on filedocumented in this encounter Additional Health Concerns Assessment Noted Time PHQ-9 Depression Total Score: 8 03/18/19 23 12:31 PM EST documented as of this encounter Care Teams Marketing Administrator Relationship Specialty Start Date End Date Nely White DO [address] [place] [address] PCP - General Family Medicine 02/27/18 documented as of this encounter
--- OUTSIDE RECORDS SUMMARY | 2024-06-27 10:34 | XMS_ITS | Encounter Summary ---
Author Organization [employer] Address [address] [place] [address] Care Team Providers Care Mechanical Research Engineer Name Role Phone Cindy Nely Primary Care Provider + [phone] Encounter Details Date Type Department Care Team ([facility] st Contact Info) Description 08/02/[address] [facility] [address] [place] [address] Angi Trujillo, CHRISTOPHER [address] [place] [address] Social History Tobacco Use Types Packs/Day Years Used Date Smoking Tobacco: Former Cigarettes Q uit: 06/07/2023 Alcohol Use Standard Drinks/Week Comments Never 0 [...] Description 09/23/2024 11:00 AM EDT Office Visit [facility] [address] [place], [place] [phone] Mauricio, Teresita, OD [address] [place] [address] documented as of this encounter Visit Diagnoses Not on filedocumented in this encounter Additional Health Concerns Assessment Noted Time PHQ-9 Depression Total Score: 0 07/31/19 24 10:39 AM EDT documented as of this encounter Care Teams Mechanical Research Engineer Relationship Specialty Start Date End Date Nely White DO [address] [place], [place] [phone] PCP - General Family Medicine 02/27/18 documented as of this encounter
--- OUTSIDE RECORDS SUMMARY | 2024-06-27 10:34 | XMS_ITS | Encounter Summary ---
Author Organization [employer] Address [address] [facility] 7t [place] [address] Care Team Providers Care Washer Operator Name Role Phone MarcoNely joseph Primary Care Provider + [phone] Reason for Visit * Reason Comments Med Refill Encounter Details Date Type Department Care Team (Late st Contact Info) Description 06/29/2022 Refill [facility] [address] [place] [address] Brandie Shields MD [address] [place] [address] Social History Tobacco Use Types Packs/Day Years [...] Description 09/23/2024 11:00 AM EDT Office Visit [facility] OPTOMETRY [address] [place], [place] [phone] Teresita Martínez OD [address] [place] [address] documented as of this encounter Visit Diagnoses Not on filedocumented in this encounter Additional Health Concerns Assessment Noted Time PHQ-9 Depression Total Score: 8 03/18/19 23 12:31 PM EST documented as of this encounter Care Teams Washer Operator Relationship Specialty Start Date End Date Nely White DO [address] [place] [address] PCP - General Family Medicine 02/27/18 documented as of this encounter
--- OUTSIDE RECORDS SUMMARY | 2024-06-27 10:34 | XMS_ITS | Encounter Summary ---
Author Organization [employer] Address [address] [facility] 7t [place] [address] Care Team Providers Care Construction Framer Name Role Phone Nely White DO Primary Care Provider + [phone] Reason for Visit * Reason Comments Med Refill Encounter Details Date Type Department Care Team (Late st Contact Info) Description 03/30/2023 Refill [facility] [address] [place] [address] Nely White DO [address] [place] [address] Social History Tobacco Use Types Packs/Day Years Used Date Smoking Tobacco: Every Day Cigarettes Alcohol Use Standard Drinks/Week Comments Never 0 (1 standard drink = 0.6 oz pur e alcohol) Depression Answer Date Recorded Patient Health Questionnaire-9 Score 8 03/18/2022 Housing Stability Answer Date Recorded What is your housing situation today? I have cat ruiz 12/12/[address] you li ve. Do you have problems with any of the following? None of the above 12/12/2022 Food Insecurity Answer Date Recorded Within the past 12 months, y ou worried that your food would run out before you got money to buy more: Never True 12/12/2022 Within the past 12 months,th e food you bought just didn't last and you didn't have enough money to get more: Never True Transportation Answer Date Recorded In the past 12 months, has l ack of transportation kept you from medical appts, meetings, work or from getting things needed for daily living? No 12/12/2022 Utilities Answer Date Recorded In the past 12 months, has t he electric, gas, oil or water company threatened to shut off services in your home? No 12/12/2022 Depression Answer Date Recorded Patient Health Questionnaire-2 [...] Description 09/23/2024 11:00 AM EDT Office Visit [facility] OPTOMETRY [address] [place], [place] [phone] Mauricio, Teresita, OD [address] [place], [place] [phone] documented as of this encounter Visit Diagnoses Not on filedocumented in this encounter Additional Health Concerns Assessment Noted Time PHQ-9 Depression Total Score: 8 03/18/19 23 12:31 PM EST documented as of this encounter Care Teams Construction Framer Relationship Specialty Start Date End Date Nely White DO [address] [place], [place] [phone] PCP - General Family Medicine 02/27/18 documented as of this encounter
--- OUTSIDE RECORDS SUMMARY | 2024-06-27 10:34 | XMS_ITS | Clinical Summary ---
Author Organization [employer] Address [address] [facility] [address] 7[address] [place] [address] Care Team Providers Care Otolaryngologist Name Role Phone Nely White DO Primary Care Provider + [phone] Allergies No known active allergies Medications * This document contains information received from the source organization and may not represent a complete record from that organization. escitalopram (Lexapro) 20 MG tabletIndications :Major depression, recurrent, chronic (CMS/HCC) TAKE 1 TABLET BY MOUTH DAILY AT BEDTIME 30 tablet 1 08/19/19 23 Active hydrOXYzine pamoate (Vistaril) 50 MG capsuleIndication s:Major depression, recurrent, chronic (CMS/HCC) TAKE 1 CAPSULE BY MOUTH TWICE DAILY NEEDED ANXIETY 30 capsule 1 12/02/19 23 Active traZODone (Desyrel) 50 MG tabletIndications :Major depression, recurrent, chronic (CMS/HCC) TAKE 1 TABLET BY MOUTH DAILY AT BEDTIME NEEDED 30 tablet 1 12/17/19 23 Active nicotine (Nicoderm, Step 3) 7 MG/24HR patchIndications: Tobacco use APPLY 1 PATCH TOPICALLY TO THE SKIN IN THE MORNING *DO NOT SMOKE WHILE USING PATCH* REMOVE BEFORE BEDTIME 30 patch 1 12/17/19 23 Active ketotifen (Zaditor) 0.025 % ophthalmic solution INSTILL 1 DROP IN EACH EYE TWICE DAILY IN THE MORNING AND AT BEDTIME NEEDED ITCHING (EYE) 5 mL 3 01/27/20 23 Active nicotine polacrilex (Nicorette) 2 MG gumIndications:To bacco use CHEW 1 PIECE OF GUM EVERY 2 HOURS NEEDED FOR SMOKING CESSATION 220 each 1 02/14/20 24 Active triamcinolone (Kenalog) 0.1 % ointment Apply topically if needed in the morning and at bedtime for rash. 30 g 07/31/19 24 Active zinc gluconate 50 MG tabletIndications :Skin abnormalities Take 1 tablet (50 mg) by mouth Once per day. 30 tablet 11 08/02/19 24 025 Active cetirizine (ZyrTEC) 10 MG tablet TAKE 1 TABLET BY MOUTH ONCE DAILY 90 tablet 3 09/11/19 24 Active triamcinolone (Nasacort) 55 MCG/ACT nasal inhaler INSTILL 2 SPRAYS IN EACH NOSTRIL ONCE DAILY IN THE MORNING 16.9 mL 11 09/11/19 24 Active celecoxib (CeleBREX) 200 MG capsuleIndication s:Acute pain of left knee TAKE 1 CAPSULE BY MOUTH TWICE DAILY 40 capsule 10/17/19 24 Active lidocaine (Lidoderm) 5 % patch APPLY 1 PATCH TOPICALLY TO SKIN, LEAVE ON FOR 12 HOURS AND OFF FOR 12 HOURS DIRECTED 30 patch 3 02/08/20 24 Active Emollient (Aquaphor Advanced Therapy) 41 % ointment Apply 1 each topically if needed in the morning and at bedtime (dry skin). 454 g 3 02/08/20 24 Active baclofen (Lioresal) 20 MG tabletIndications :Muscle spasm Take 1 tablet (20 mg) by mouth 3 times daily. 30 tablet 1 02/08/20 24 Active Ferrous Sulfate (iron) 325 (65 Fe) MG tabletIndications :Anemia, unspecified type TAKE 1 TABLET BY MOUTH EVERY DAY 90 tablet 1 05/01/19 25 Active folic acid (Folvite) 1 MG tablet Take 1 tablet (1 mg) by mouth Once per day. 90 tablet 3 05/21/19 25 026 Active thiamine (Vitamin B-1) 100 MG tablet Take 1 tablet (100 mg) by mouth Once per day. 90 tablet 3 05/21/19 25 026 Active Multiple Vitamin (Multivitamin) tabletIndications :Status post laparoscopic sleeve gastrectomy Take 1 tablet by mouth in the morning. 90 tablet 3 05/21/19 25 Active cyanocobalamin (Vitamin B-12) 500 MCG tablet Take 1 tablet (500 mcg) by mouth Once per day. 90 tablet 3 05/21/19 25 026 Active beta carotene (vitamin A) 3 MG (34711 UT) capsule Take 1 capsule (3 mg) by mouth Once per day. 90 capsule 3 05/21/19 25 026 Active cholecalciferol (D3 Super Strength) 50 MCG (2000 UT) capsule Take 1 capsule (50 mcg) by mouth Once per day. 90 capsule 3 05/21/19 25 026 Active Tirzepatide-Weigh t Management (Zepbound) 2.5 MG/0.5ML solution auto-injector Inject 0.5 mL (2.5 mg) under the skin 1 (one) time per week. 2 mL 3 05/21/19 25 Active Acetaminophen Extra Strength 500 MG tablet TAKE 1 TABLET BY MOUTH EVERY 6 HOURS NEEDED 60 tablet 2 05/31/19 25 Active Acetaminophen Extra Strength 500 MG tablet TAKE 1 TABLET BY MOUTH EVERY 6 HOURS NEEDED 60 tablet 2 02/08/20 24 025 Discontinued Active Problems Problem Noted Date Diagnosed Date History of anemia 05/20/2024 Chronic knee pain 05/20/2024 BMI 36.0-36.9,adult 05/20/2024 Alcohol use disorder 07/30/2023 Status post laparoscopic sleeve gastrectomy 02/28 History of COVID-19 03/18/2022 Allergic rhinitis 03/18/2022 Chronic back pain 03/18/2022 History of abnormal cervical Pap smear Status post loop electrosurg ical excision procedure (LEEP) of cervix 03/18/2022 Major depression, recurrent, chronic 04/13/2016 Posttraumatic stress disorder 09/28/2015 Resolved Problems Problem Noted Date Diagnosed Date Resolved Date Status post abdominoplasty 03/18/2022 0 07/27/2022 Acute low back pain 03/08/2022 11/07/19 Hip pain 03/08/2022 11/07/2023 Excessive and redundant skin and subcutaneous tissue 03/08/2022 03/18/2022 Neck pain 03/08/2022 11/07/2023 Encounters Date Type Department Care Team Description 05/30/2024 Refill [facility] PEDS [address] [place] [address] Nely White DO 05/24/2024 Telephone [facility] [address] [place] [phone] Nely White DO telephone call; Prior Authorization (YANA LEE Request: Ezekielpbzheng) 05/20/2024 10:15 AM EDT Office Visit [address] [address] Nely White DO Major depression, recurrent, chronic (CMS/HCC) (Primary Dx); Alcohol use disorder; History of anemia; Chronic pain of left knee; Swelling of both lower extremities; Skin abnormalities; BMI 36.0-36.9,adult; Healthcare maintenance; Dietary counseling; Exercise counseling; Status post laparoscopic sleeve gastrectomy 05/20/2024 Travel 05/10/2024 Patient Outreach [facility] [address] [place] [phone] Nely White DO Pre-visit Planning ((Unable to reach for PVP screening or LVM)) 05/10/2024 Population Health Risk Score [facility] () Department [address] [place] [phone] Provider, Population Health Generic 04/30/[address] [address] Nely White DO Anemia, unspecified type 04/04/2024 Travel from Last 3 Months Immunizations Name Administration Dates Next Due Influenza, IIV3, injectable 12/11/2007 Pfizer Covid-19 Vaccine 12+ 11/27/2023 Tdap 07/29/2020,11/18/2016,03/09/2009 Social History Tobacco Use Types Packs/Day Years Used Date Smoking Tobacco: Former Cigarettes Q uit: 06/07/2023 Passive Smoke Exposure: Past Tobacco Cessation:Counseling Given: Not Answered Alcohol Use Standard Drinks/Week Comments Never 0 [...] Answer Date Recorded Patient Health Questionnaire-9 Score 7 05/20/2024 Patient Health Questionnaire-9 Score 7 05/20/2024 Last PHQ-9: Questionnaire Data Not on file 0 05/20/2024 Housing Stability Answer Date Recorded What is your housing situation today? I have cat ruiz 07/31/[address] you li ve. Do you have problems with any of the following? None of the above 07/31/2023 Food Insecurity Answer Date Recorded Within the past 12 months, y ou worried that your food would run out before you got money to buy more: Sometimes True 2024 Within the past 12 months,th e food you bought just didn't last and you didn't have enough money to get more: Sometimes True 05/20/2024 Transportation Answer Date Recorded In the past [...] Date Recorded Patient Health Questionnaire-2 Score 2 05/20/2024 Internet Access Answer Date Recorded Internet Access Q1 Yes 05/20/2024 Internet Access Q2 Not on file 05/20/2024 Comments No Sex and Gender Information Value Date Recorded Sex Assigned at Female 12/27/2021 10:21 AM EDT Legal Sex Female 10:21 AM EDT Gender Identity Female 12/27/2021 10:21 AM EDT Sexual Orientation Straight 12/27/2021 10 :21 AM EDT Last Filed Vital Signs Vital Sign Reading Time Taken Comments Blood Pressure 124/70 05/20/2024 10:15 AM EDT Pulse 82 05/20/2024 10:15 AM EDT Temperature 36.1 ??C (97 ??F) 05/20/2024 10:15 AM EDT Respiratory Rate 20 05/20/2024 10:15 AM EDT Oxygen Saturation 98% 05/20/2024 10:15 AM EDT Inhaled Oxygen Concentration - - Weight 96.2 kg (212 lb) 05/20/2024 10:15 AM EDT Height 162.6 cm (5' 4 ) 05/20/2024 10:15 AM EDT Body Mass Index 36.39 05/20/2024 10:15 AM EDT Plan of Treatment Upcoming Encounters Date Type Department Care Team (Late st Contact Info) Description 09/23/2024 11:00 AM EDT Office Visit [facility] OPTOM[facility] [address] [place] [address] Teresita Martínez, OD [address] [place] [address] Health Maintenance Due Date Last Done Comments Family Planning (PISQ) 01/17/2000 Hepatitis B Vaccines (1 of 3 - 19+ 3-dose series) 01/17/2004 Influenza Vaccine (#1) 2023 12/11/2007 Diagnostic Breast Imaging 12/29/2023 06/28/2023 Mammogram 12/29/2023 06/28/2023 Alcohol/Substance Use Screening 10/19/2024 10/20/2023 Depression Screening 05/20/2025 05/20/2024, 05/21/19 25 SDOH Screening 05/20/2025 05/20/2024 Tobacco Screening 05/20/2025 05/20/2024 Pap Smear 06/26/2026 06/27/2023, 01/28, 02/16/2021 Cervical Cancer Screening 02/17/2027 HPV/Cotest 02/17/2027 02/17/2022, 01/28, 02/16/2021, Additional history exists DTaP/Tdap/Td Vaccines (4 - Td or Tdap) 07/29/2030 07/29/2020, 11/18/2016, 03/09/2009 Zoster Vaccines (1 of 2) 2035 RSV Patients and Patients Aged 60 years or older (1 - 1-dose 75+ series) 01/17/2060 HIV Screening Completed 08/15/2023, 09/01/2020 Hepatitis C Screening Completed 08/15/2023 COVID-19 Vaccine Completed 11/27/2023 HIB Vaccines Aged Out No longer eligi ble based on patient's age to complete this topic HPV Vaccines Aged Out No longer eligi ble based on patient's age to complete this topic Hepatitis A Vaccines Aged Out No long er eligible based on patient's age to complete this topic IPV Vaccines Aged Out No longer eligi ble based on patient's age to complete this topic Meningococcal Vaccine Aged Out No melissa paige eligible based on patient's age to complete this topic Pneumococcal Vaccine: Pediatrics (0 to 5 Years) and At-Risk Patients (6 to 49) Years) Aged Out No longer eligible based on patient's age to complete this topic RSV under 20 months Aged Out No longe r eligible based on patient's age to complete this topic Rotavirus Vaccines Aged Out No longer eligible based on patient's age to complete this topic Procedures Procedure Name Priority Date/Time Associated Diagnosis Comments HEPATITIS C AB W/REFL TO HCV RNA, QN, PCR Routine 08/15/2023 10:27 AM EDT Alcohol use HIV 1/2 ANTIGEN/ANTIBODY, FOURTH GENERATION W/RFL Routine 08/15/2023 10:27 AM EDT Alcohol use BI US BREAST LIMITED RIGHT Routine 06/28/2023 2:46 PM EDT PAP SMEAR Routine 06/27/2023 1:23 PM EDT HPV MRNA E6/E7 REFLEX TO HPV 16, 18/45 Routine 02/17/2022 11:50 AM EST from Last 3 Months or Most Recently Relevant to Health Maintenance Results * Hepatitis C Antibody with Reflex to HCV, RNA, Quantitative, Real-Time PCR (08/15/2023 10:27 AM EDT) Hepatitis C Antibody Nonreactive Nonreactive [facility] Comment:Antibodies to HCV no t detected; does not exclude early acuteHCV infection. Blood Venous blood specimen / Unknown 08/15/2023 10:27 AM EDT 08/15/2023 11:28 AM EDT us Nely White DO LAB BLOOD ORDERABLES Final R esult [facility] [address] [place] [phone] * HIV-1/2 Antigen and Antibodies, Fourth Generation, with Reflexes (08/15/2023 10:27 AM EDT) HIV AB/AG Nonreactive Nonreactive [facility] Comment:HIV-1 p24 Ag and/or HIV-1/HIV-2 Ab not detected.A test result that is nonreactive does not exclude thepossibility of exposure to or infection with HIV-1 and/orHIV-2. Nonreactive results in this assay for individualswith prior exposure to HIV-1 and/or HIV-2 may be due toantigen and antibody levels that are below the limit ofdetection of this assay.The [employer] HIV Ag/Ab Combo assay result andsupplemental assay results should be interpreted inconjunction with the patient's clinical presentation,history and other laboratory results. If the results areinconsistent with clinical evidence, additional testing issuggested to confirm the result. Blood Venous blood specimen / Unknown 08/15/2023 10:27 AM EDT 08/15/2023 11:28 AM EDT us Nely White DO LAB BLOOD ORDERABLES Final R esult [facility] [address] [place] [phone] * BI US Breast Limited Right (06/28/2023 2:46 PM EDT) Anatomical Region Laterality Modality Breast Right Ultrasound 06/28/2023 2:46 PM EDT Narrative 06/28/2023 3:14 PM EDT ? [facility] [place] ? [address] ?[place] [address] ? Ultrasound Report ? Signed ? Patient: Luis,Cathiria ?MR#: [id number] ?? [id number] ? : 1985 ?Acct:[id number] ? Age/Sex: 38 / F ?ADM Date: 05/01/24 ? Loc: HO.MAMMO ? Attending Dr: Nely White DO ? Ordering Physician: Nely White DO ?? Date of Service: 06/28/23 ?? Procedure(s): US breast RT limited mamm only ?? Accession Number(s): [id number] ? cc: Nely White DO ? EXAMINATION: ?? US DIAGNOSTIC ULTRASOUND BREAST, RIGHT ? CLINICAL INFORMATION: ? 6 month Follow-up small oval nodule 9:00 axis right breast. ? COMPARISON: ?? 03/10/2022 right breast ultrasound. ? TECHNIQUE: ?? Ultrasound of the right breast is performed with real-time toledo scale ?? imaging and color Doppler. Attention was given to the 9:00 axis. ? FINDINGS: ?? There is redemonstration of a stable and unchanged oval hypoechoic ?? taller than wide nodule at 9:00 axis right breast, 9 cm from the ?? nipple, with good through transmission, circumscribed margins, abundant ?? associated color Doppler flow, measuring an unchanged 6 x 3 x 6 mm. ?? This is most likely an intramammary lymph node versus a small ?? fibroadenoma. It is located between the implant capsule and the skin. ?? It remains probably benign. ? Results are provided to the patient at time of visit by the ?? technologist. ? US/US breast RT limited mamm only ?? IMPRESSION: ?? -Benign-appearing unchanged oval nodule under 1 cm at the 9:00 axis, 9 ?? cm from the nipple, right breast, interposed between the skin and ?? implant capsule. This is unchanged, most likely represents a ?? fibroadenoma or intramammary lymph node. Six-month interval follow-up ?? targeted ultrasound recommended to ensure two-year stability. ? ASSESSMENT: ? BI-RADS 3 - Probably benign finding(s) - 6 month follow-up suggested ? RECOMMENDATION: ?? 6 Month F/U ? This patient's information was entered into a reminder system with a ?? target due date for their next mammogram. ? Dictated By: ?Pop June MD ? Signed By: ?<Electronically signed by Pop June MD in OV> ?// 1510 ? DD/DT: 05//24 1446 ? TD/TT: ? President Educational Institution: ? Procedure Note [place], Image - 05/02/2023 Preethi [facility] [address] [place] [address] Ultrasound Report Signed Patient: Dean Smith#: [id number] : 1985Acct:[id number] Age/Sex: 38 / FADM Date: 06/28/23 Loc: HO.MAMMO Attending Dr: Nely White DO Ordering Physician: Nely White DO Date of Service: 06/28/23 Procedure(s): US breast RT limited mamm only Accession Number(s): [id number] cc: Nely White DO EXAMINATION: US DIAGNOSTIC ULTRASOUND BREAST, RIGHT CLINICAL INFORMATION: 6 month Follow-up small oval nodule 9:00 axis right breast. COMPARISON: 03/10/2022 right breast ultrasound. TECHNIQUE: Ultrasound of the right breast is performed with real-time toledo scale imaging and color Doppler. Attention was given to the 9:00 axis. FINDINGS: There is redemonstration of a stable and unchanged oval hypoechoic taller than wide nodule at 9:00 axis right breast, 9 cm from the nipple, with good through transmission, circumscribed margins, abundant associated color Doppler flow, measuring an unchanged 6 x 3 x 6 mm. This is most likely an intramammary lymph node versus a small fibroadenoma. It is located between the implant capsule and the skin. It remains probably benign. Results are provided to the patient at time of visit by the technologist. US/US breast RT limited mamm only IMPRESSION: -Benign-appearing unchanged oval nodule under 1 cm at the 9:00 axis, 9 cm from the nipple, right breast, interposed between the skin and implant capsule. This is unchanged, most likely represents a fibroadenoma or intramammary lymph node. Six-month interval follow-up targeted ultrasound recommended to ensure two-year stability. ASSESSMENT: BI-RADS 3 - Probably benign finding(s) - 6 month follow-up suggested RECOMMENDATION: 6 Month F/U This patient's information was entered into a reminder system with a target due date for their next mammogram. Dictated By: Pop June MD Signed By: <Electronically signed by Pop June MD in OV> 06/28/23 1510 DD/ 1446 TD/TT: President Educational Institution: us Nely White DO IMG US PROCEDURES Final Resu lt * Pap Smear (06/27/2023 1:23 PM EDT) 06/27/2023 1:23 PM EDT 06/28/2023 12:00 PM EDT [facility] - 07/15/2023 5:57 PM EDT ----- ------- Name: Shanae Smith ?Age/Sex: 38/F ? : 1985 Unit#: [id number] ?? Attend Dr: Crystal Michael CNM ?Re06/27/23 ?Status: DEP REF ? Location: .LAB ?Disch: ? ----- ------- SPEC : [id number] ? RECD: 06/28/23-1200 ? STATUS: ??SOUT ? REQ NUM: [id number] ? KRISTINA: 06/27/23-1323 ? SUBM DR: Crystal Michael CNM ? ENTERED: ??06/28/23-2 ?SP TYPE: Pap Smr ?OTHR DR: Nely White DO ? ORDERED: ??Pap Smear ? Interpretation ?? Satisfactory for evaluation. ?? Negative for intraepithelial lesion or malignancy. ?? Microorganisms consistent with Trichomonas vaginalis. ? HPV mRNA E6/E7: ?NOT DETECTED ? This assay detects E6/E7 viral messenger RNA (mRNA) from 14 high-risk HPV types (16, 18, ?? 31, 33, 35, 39, 45, 51, 52, 56, 58, 59, 66, 68) ? HPV testing performed by [employer], [place], [place]. ??See reference laboratory ?? portion of the EMR for entire report. ?Clinical Information LMP: 05/30/2023 Previous PAP test: 02/18/2022, WNL Other surgery: 2020, leep Other history:2018, DIMITRY I ? Material Received ?? ThinPrep-Cervical Copies To: ?? Nely White DO ?? [address] ?? [place] [address] ? Crystal Michael CNM ?? [address] ?? [place] [address] ?? [phone] ----- ------- Signed (signature on file) Celina Rush 07/15/231756 ? ----- ------- ? END OF REPORT ? us Generic External Data Provider LAB CYTOLOGY HECTOR BERMUDEZ Final Result [facility] [address] [place] [phone] * HPV mRNA E6/E7 w/Reflex to HPV Genotypes 16, 18/45 (02/17/2022 11:50 AM EST) HPV nRNA E6/E7 Not Detected Not Detected [facility] Comment:Methodology: Transcr iption-Mediated AmplificationThis assay detects E6/E7 viral messenger RNA (mRNA) from 14high-risk HPV types (16,18,31,33,35,39,45,51,52,56,58,59,66,68).Cervical sources are required for HPV testing.If a vaginal source from a patient who has had atotal hysterectomy with removal of cervix wassubmitted, please contact the testing laboratoryfor alternative testing options.For additional information, please refer [email or web address].[employer]/faq/NLA632q6(This link if provided for information/educational purposes only.)THIS TEST WAS PERFORMED AT:[employer] [address] ([address])[place] [phone] MEI MD HPV mRNA E6/E7 TNP [facility] HPV 16 RNA TNP [facility] HPV 18/45 RNA [facility] 02/17/2022 11:5 0 AM EST 02/18/2022 11:15 AM EST us [facility] External Provider LAB CYT OLOGY ORDERABLES Final Result Performing Organization Address City/State/[facility] Co de Phone Number [facility] [address] [place] [address] [phone] from Last 3 Months or Most Recently Relevant to Health Maintenance Insurance [place], [place] [facility] Care Teams Otolaryngologist Relationship Specialty Start Date End Date Nely White DO [address] [place] [phone] PCP - General Family Medicine 02/27/18
--- OUTSIDE RECORDS SUMMARY | 2024-06-27 10:34 | XMS_ITS | Encounter Summary ---
Author Organization [employer] Address [address] [facility] [address] [place] [address] Care Team Providers Care Customs Manager Name Role Phone Nely White DO Primary Care Provider [phone] Encounter Details Date Type Department Care Team (Late st Contact Info) Description 11/25/2022 Abstract [facility] [address] [place] [address] Nely White DO [address] [place] [address] Social History Tobacco Use Types Packs/Day Years [...] Description 09/23/2024 11:00 AM EDT Office Visit [facility] [address] [place] [address] Teresita Martínez, OD [address] [place] [address] documented as of this encounter Procedures Procedure Name Priority Date/Time Associated Diagnosis Comments HM PAP/HPV Routine 02/16/2021 documented in this encounter Results * (ABNORMAL) Pap Smear (02/16/2021) Pap Epithelial cell abnormality(A ) Negative for intraephithelial lesion or malignancy, Other HPV Undetected us Historical Provider HEALTH MAINTENANCE Final Result documented in this encounter Visit Diagnoses Not on filedocumented in this encounter Additional Health Concerns Assessment Noted Time PHQ-9 Depression Total Score: 8 03/18/19 23 12:31 PM EST documented as of this encounter Care Teams Customs Manager Relationship Specialty Start Date End Date Nely White DO [address] [place] [address] PCP - General Family Medicine 02/27/18 documented as of this encounter
== END 2024-06-27 10:53 | disposition home or self-care (01) ==
LOC: HO.HWS 09:37
PROVIDERS: PCP Family Medicine; Visit Provider Advanced Practice Midwife
DX: Z01.419 Encounter for gynecological examination (general) (routine) without abnormal findings (principal); R87.619 Unspecified abnormal cytological findings in specimens from cervix uteri; Z98.51 Tubal ligation status; A59.9 Trichomoniasis, unspecified; Z98.890 Other specified postprocedural states; Z98.82 Breast implant status; Z90.3 Acquired absence of stomach [part of]; E66.3 Overweight
CPT/HCPCS: 99395; 99459

== ENCOUNTER 2024-06-27 09:37 | Outpatient (REF) | payer MEDICAID, SELFPAY ==
[2024-06-27 17:55] LABS: Bacterial Vaginosis PCR POSITIVE (Negative); Candida Group PCR NOT DETECTED (Not Detect); Candida glab krusei PCR NOT DETECTED (Not Detect); Trichomonas vaginalis PCR NOT DETECTED (Not Detect)
[2024-06-27 18:27] LABS: CT PCR NOT DETECTED (Not Detect.); NG PCR NOT DETECTED (Not Detect.)
[2024-07-02 14:16] LABS: HPV Genotype 16 Negative (Negative); HPV Genotype 18 Negative (Negative); HPV High Risk Positive (Negative)
== END 2024-06-27 09:38 | disposition home or self-care (01) ==
LOC: HO.LNP 09:37
PROVIDERS: PCP Family Medicine; Visit Provider Advanced Practice Midwife
DX: Z01.419 Encounter for gynecological examination (general) (routine) without abnormal findings (principal)
CPT/HCPCS: 81515; 87491; 87591; 87626; 88175; 99395; 99459

== ENCOUNTER 2024-08-08 13:20 | Outpatient (REF) | payer MEDICAID, SELFPAY | END 2024-08-08 13:21 | disposition home or self-care (01) | LOC: HO.LNP 13:20 | PROVIDERS: PCP Family Medicine; Visit Provider Obstetrics & Gynecology | DX: B97.7 Papillomavirus as the cause of diseases classified elsewhere (principal); Z32.02 Encounter for pregnancy test, result negative | CPT/HCPCS: 57454; 81025; 88305 ==

== ENCOUNTER 2024-08-08 13:20 | Outpatient (AMB) | payer MEDICAID, SELFPAY ==
--- NOTE | 2024-08-08 13:22 | MHC.OFFVIS ---
Vital Signs 08/08/24 13:33 Height 5 ft 4 in Weight 172 lb BMI 29.5 Intake Visit Reasons: Colposcopy Allergies No Known Allergies [No Known Allergies*] Allergy (Verified 08/08/24 13:40) HPI Comments Details: Presenting for normal Pap/HPV high-risk positive, HPV 16/18 negative 02/16 ascus HPV positive, HPV 16/18/40 5-, followed by colpo biopsy ECC negative 02/17 co testing negative 07/20 co testing negative [facility] Medical History (Updated 08/08/24 @ 13:32 by Alexandru Egan MD) Abnormal Pap smear of cervix Rash Arm erythema Excess skin of upper extremity Overweight (BMI 25.0-29.9) Intestinal malabsorption following gastrectomy Surgical History History of breast lift H/O breast augmentation History of loop electrical excision procedure (LEEP) History of sleeve gastrectomy Hx of dilation and curettage History of ear surgery Hx of breast reduction, elective Hx of tubal ligation Family History Father Type 2 diabetes mellitus Hypertension Mother Obesity Hypertension Son Obesity Son No problems noted. Daughter No problems noted. Brother No problems noted. Brother No problems noted. Sister No problems noted. Maternal Uncle Colon cancer Maternal Grandmother Type 2 diabetes mellitus Social History Household Members Other:: daughter Housing: Apartment Alcohol intake: current Alcohol intake frequency: holidays/special occasions only Patient Tobacco Use Status: Former Tobacco user Current occupational status: employed Current occupation: N[employer] Sexual orientation: Straight/Heterosexual Gender identity: Female Female Reproductive History Menstrual Age of Menarche: 12 Review of Systems Const All systems reviewed & are unremarkable except as noted in HPI and below Reports as per HPI and Reports no additional complaints GI Reports no additional complaints Reports no additional complaints Office Procedures Colposcopy Colposcopy: Pre-Procedure Counseling: Before beginning the procedure, I conducted comprehensive counseling with the patient. We thoroughly discussed the procedure itself, including its details, alternatives, and all associated risks. This included but not limited to the following complications such as bleeding, infection, and injury to the vagina, bladder, and vessels, as well as the potential need for transfusion with all its associated risks. Subsequently, the patient sign the consent. Pap smear result: Negative Pap/HPV high-risk positive, history of DIMITRY 3 in 2018 and ascus/HPV positive colpo biopsy negative in 02/16. Urine test in office = Negative Procedure: During the procedure, the following steps were performed: A speculum was inserted, and acetic acid was applied. Colposcopy was conducted, allowing visualization of the transformation zone. Acetowhite lesions were identified at the 11+ 12 o'clock position. Cervical biopsies were obtained from the 11+ 12 o'clock position, followed by an endocervical curettage (ECC). Vaginoscopy of the upper vagina revealed no evidence of aceto-white lesions. Hemostasis was achieved using Monsel solution, and the patient tolerated the procedure well. Post-Procedure Instructions: The patient was advised to promptly contact the office or the after hours answering service or go to the emergency room if experiencing a temperature exceeding 100.4?F, abdominal pain, nausea/vomiting, or bleeding. Additionally, the patient was instructed to abstain from vaginal intercourse and bathtub use. The patient confirmed understanding of these instructions. Discharge Instructions: The patient was instructed to schedule a follow-up appointment in 2 weeks for further evaluation and management. Please note that this note was generated using a voice recognition program, and errors may have occurred during auditor tax. [id number] of cervix including upper vagina with biopsy and ECC Procedure code (CPT) selection complete Assessment & Plan Assessment & Plan (1) HPV in female: Comment: Negative Pap history of ascus HPV positive in 02/16 and DIMITRY 3 in 2018 Code(s): B97.7 - Papillomavirus as the cause of diseases classified elsewhere Category: Medical Plan: Discussed with the patient the result of her normal pap/HPV positive, its significance, risk of progression, persistence, and regression. the false positive/negative rate of a Pap smear as a screening test in detecting cervical cancer and the indication for a diagnostic test -colposcopy, biopsy, endocervical curettage. The patient verbalized understanding and agreed with the plan, all questions answered. Colposcopy, biopsy /ECC done, see procedure note Orders: Orders AMB Colposcopy Today B97.7 - Papillomavirus as the cause of diseases classified elsewhere Coding Level of Care Code Procedure Only Diagnoses HPV in female B97.7 CPT Codes Colposcopy - CPT: 98669-Huwufbivu of cervix including upper vagina with biopsy and ECC ([id number])
[2024-08-08 13:33] VITALS: BMI 29.5
--- OUTSIDE RECORDS SUMMARY | 2024-08-08 15:31 | XMS_ITS | Encounter Summary ---
Author Organization [employer] Address [address] [facility] [place] [address] Care Team Providers Care Well Drill Operator Helper Cable Tool Name Role Phone GabyNely jackson Primary Care Provider [phone] Encounter Details Date Type Department Care Team (Late st Contact Info) Description 07/28/2022 Orders Only [facility] [address] [place] [address] Georgi Izquierdo MD [address] [place] [address] Social History Tobacco Use Types Packs/Day Years [...] Description 09/23/2024 11:00 AM EDT Office Visit [facility] [address] [place] [address] Teresita Martínez, OD [address] [place] [address] documented as of this encounter Procedures Procedure Name Priority Date/Time Associated Diagnosis Comments BACTERIAL VAGINOSIS PANEL Routine 06/27/2023 12:00 AM EDT documented in this encounter Results * (ABNORMAL) Bacterial Vaginosis (06/27/2023 12:00 AM EDT) Trichomonas DNA Probe Positive(A) Negative [facility] Gardnerella DNA Probe Positive(A) Negative [facility] Kami DNA Probe Negative Negative [facility] 06/27/2023 06/27/2023 us Generic External Data Provider LAB MICROBIOLOGY - GENERAL ORDERABLES Final Result [facility] [address] [place] [address] [phone] documented in this encounter Visit Diagnoses Not on filedocumented in this encounter Additional Health Concerns Assessment Noted Time PHQ-9 Depression Total Score: 8 03/18/19 23 12:31 PM EST documented as of this encounter Care Teams Well Drill Operator Helper Cable Tool Relationship Specialty Start Date End Date Nely White DO [address] [place] [address] PCP - General Family Medicine 02/27/18 documented as of this encounter
== END 2024-08-08 13:48 | disposition home or self-care (01) ==
LOC: HO.HWS 13:21
PROVIDERS: PCP Family Medicine; Visit Provider Obstetrics & Gynecology
DX: R87.810 Cervical high risk human papillomavirus (HPV) DNA test positive (principal); Z32.02 Encounter for pregnancy test, result negative
CPT/HCPCS: 57454

== ENCOUNTER 2024-09-06 11:57 | Outpatient (AMB) | payer MEDICAID, SELFPAY ==
--- NOTE | 2024-09-06 11:57 | A.OFFVIS_ITS ---
Intake Visit Reasons: TV colpo results Allergies No Known Allergies (No Known Allergies*) Allergy (Verified 08/08/24 13:40) HPI Comments Details: The patient is schedule telehealth visit post colpo for follow-up. The patient is doing well with no complaints. The pathology showed the following: A. Endocervix, curettage: Squamous epithelium with reactive changes and no dysplasia, and rare endocervical glandular cells, may not be senior outside sales representative of the endocervix. B. Cervix, 11:00, biopsy: Squamous mucosa; negative for dysplasia; no endocervical glandular component present. C. Cervix, 12:00, biopsy: Squamous mucosa; negative for dysplasia; no endocerv ical glandular component present. Comment: The patient's previous negative Pap test ([id number]) concurs with the current biopsy [facility] Medical History Abnormal Pap smear of cervix Rash Arm erythema Excess skin of upper extremity Overweight (BMI 25.0-29.9) Intestinal malabsorption following gastrectomy Surgical History History of breast lift H/O breast augmentation History of loop electrical excision procedure (LEEP) History of sleeve gastrectomy Hx of dilation and curettage History of ear surgery Hx of breast reduction, elective Hx of tubal ligation Family History Father Type 2 diabetes mellitus Hypertension Mother Obesity Hypertension Son Obesity Son No problems noted. Daughter No problems noted. Brother No problems noted. Brother No problems noted. Sister No problems noted. 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 Sexual orientation: Straight/Heterosexual Gender identity: Female Female Reproductive History Menstrual Age of Menarche: 12 Review of Systems Const All systems reviewed & are unremarkable except as noted in HPI and below Reports as per HPI and Reports no additional complaints GI Reports no additional complaints Reports no additional complaints Telehealth Telehealth Telehealth Platform: Telephone Location of provider rendering services: practice address Location of patient: address on file Patient Identification confirmed using: Name, : Yes Telehealth method: video Patient verbally consented to treatment: Yes Patient verbally consented to billing insurance company: Yes Patient informed of any privacy concerns related to visit: Yes Minutes spent on Phone/Video with Pt.: 3 Assessment & Plan Assessment & Plan (1) HPV in female: Comment: Negative Pap history of ascus HPV positive in 02/16 and DIMITRY 3 in 2018 Code(s): B97.7 - Papillomavirus as the cause of diseases classified elsewhere Category: Medical Plan: Discussed with the patient the pathology results of the colposcopy biopsies & endocervical curettage. Discussed with the patient the sensitivity specificity, positive and negative predictive value in detecting cervical cancer in addition discussed the regression, persistence and progression rates. Recommended co- testing in 12 months, if cytology and or HPV are abnormal will proceed was colposcopy biopsy and endocervical curettage. Instructions given to the patient to schedule a co test appointment in 1 year. All questions answered the patient verbalized understanding. I spent a total of 20 minutes reviewing the chart, talking to the patient via video and documenting in the medical record. Coding Level of Care Code Tele Est Pt Level 3 (21927) Diagnoses HPV in female B97.7
--- OUTSIDE RECORDS SUMMARY | 2024-09-06 12:18 | XMS_ITS | Encounter Summary ---
Author Organization [employer] Address [address] [address] [facility] [address] [place] [address] Care Team Providers Care Container Finishing Inspector Name Role Phone GabyNely jackson Primary Care Provider [phone] Encounter Details Date Type Department Care Team (Late st Contact Info) Description 07/28/2022 Orders Only [facility] [address] [place] [address] Georgi Izquierdo MD [address] [place] [address] Social History Tobacco Use Types Packs/Day Years [...] Description 09/23/2024 11:00 AM EDT Office Visit [facility] [address] [place] [address] Teresita Martínez, OD [address] [place] [address] documented as of this encounter Procedures Procedure Name Priority Date/Time Associated Diagnosis Comments BACTERIAL VAGINOSIS PANEL Routine 06/27/2023 12:00 AM EDT documented in this encounter Results * (ABNORMAL) Bacterial Vaginosis (06/27/2023 12:00 AM EDT) Trichomonas DNA Probe Positive(A) Negative [facility] Gardnerella DNA Probe Positive(A) Negative [facility] Kami DNA Probe Negative Negative [facility] 06/27/2023 06/27/2023 us Generic External Data Provider LAB MICROBIOLOGY - GENERAL ORDERABLES Final Result [facility] [address] [place] [address] [phone] documented in this encounter Visit Diagnoses Not on filedocumented in this encounter Additional Health Concerns Assessment Noted Time PHQ-9 Depression Total Score: 8 03/18/19 23 12:31 PM EST documented as of this encounter Care Teams Container Finishing Inspector Relationship Specialty Start Date End Date Nely White DO [address] [place] [address] PCP - General Family Medicine 02/27/18 documented as of this encounter
== END 2024-09-06 12:20 | disposition home or self-care (01) ==
LOC: HO.HWS 11:57
PROVIDERS: PCP Family Medicine; Visit Provider Obstetrics & Gynecology
DX: R87.810 Cervical high risk human papillomavirus (HPV) DNA test positive (principal)
CPT/HCPCS: 99213

== ENCOUNTER 2024-09-24 13:28 | Outpatient (REF) | payer MEDICAID, SELFPAY ==
--- NOTE | ~2024-09-24 | US_ITS ---
US BREAST LIMITED RIGHT Clinical information: Patient is status post Limited ultrasound of the right breast on June 28, 2023 that describes palpable right breast nodule at 9 o'clock position 9 cm from the nipple and a 6-month follow-up ultrasound was recommended. This finding has being followed up since February 2022. COMPARISON: Right breast ultrasound on March 10, 2022 and June 28, 2023. FINDINGS: Targeted ultrasound of the right breast was performed at the location of the previously described sonographic finding. The survey shows a 0.5 x 0.5 x 0.3 cm hypoechoic structure, with findings suggestive of vascular pedicle which favors possibility of a lymph node, located at 9 o'clock position at 9 cm from the nipple. Prior measurements were 0.6 x 0.3 x 0.6 cm in June 2023 and 0.7 x 0.3 x 0.6 cm February 2022. US/US breast RT limited mamm only IMPRESSION: Right breast: Right breast nodule at 9 o'clock position 9 cm from the nipple, possibly a lymph node or fibroadenoma as previously stated, essentially unchanged from February 2002. At this point, this finding can be considered to be benign and no further dedicated imaging follow-up is required. Findings were conveyed to the patient via senior cytotechnologist. ASSESSMENT: BI-RADS 2 - Benign Findings RECOMMENDATION: Mammo at 40 or earlier if clinically needed This patient's information was entered into a reminder system with a target due date for their next mammogram. Electronically signed by: Tavo Mcintyre MD 09/24/2024 02:15 PM EDT
--- OUTSIDE RECORDS SUMMARY | 2024-09-24 14:20 | XMS_ITS | Encounter Summary ---
Author Organization [employer] Address [address] [facility] [address] [place] [address] Care Team Providers Care Skimmer Scoop Operator Name Role Phone Gabymanuel Nely Primary Care Provider [phone] Encounter Details Date Type Department Care Team (Late st Contact Info) Description 07/28/[address] [facility] [address] [place] [address] Georgi Izquierdo MD [address] [place] [address] Social History Tobacco Use Types Packs/Day Years [...] Care Team (Late st Contact Info) Description 01/03/2025 3:30 PM EST Office Visit [facility] [address] [place] [address] Teresita Martínez, OD [address] [place] [address] documented as of this encounter Procedures Procedure Name Priority Date/Time Associated Diagnosis Comments BACTERIAL VAGINOSIS PANEL Routine 06/27/2023 12:00 AM EDT documented in this encounter Results * (ABNORMAL) Bacterial Vaginosis (06/27/2023 12:00 AM EDT) Trichomonas DNA Probe Positive(A) Negative [facility] Gardnerella DNA Probe Positive(A) Negative [facility] Kami DNA Probe Negative Negative [facility] 06/27/2023 06/27/2023 us Generic External Data Provider LAB MICROBIOLOGY - GENERAL ORDERABLES Final Result [facility] [address] [place] [address] [phone] documented in this encounter Visit Diagnoses Not on filedocumented in this encounter Additional Health Concerns Assessment Noted Time PHQ-9 Depression Total Score: 8 03/18/19 23 12:31 PM EST documented as of this encounter Care Teams Skimmer Scoop Operator Relationship Specialty Start Date End Date Nely White DO [address] [place] [address] PCP - General Family Medicine 02/27/18 documented as of this encounter
== END 2024-09-24 13:29 | disposition home or self-care (01) ==
LOC: HO.MAMMO 13:28
PROVIDERS: PCP Family Medicine; Visit Provider Family Medicine
DX: N63.15 Unspecified lump in the right breast, overlapping quadrants (principal)
CPT/HCPCS: 76642

== ENCOUNTER → 2024-09-24 13:30 | Outpatient (BNV) | payer MEDICAID, SELFPAY | PROVIDERS: PCP Family Medicine; Visit Provider Radiology Body Imaging | DX: N63.11 Unspecified lump in the right breast, upper outer quadrant (principal) | CPT/HCPCS: 76642 ==

== ENCOUNTER 2025-02-17 10:09 | Outpatient (REF) | payer MEDICAID, SELFPAY ==
--- NOTE | ~2025-02-17 | XR_ITS ---
EXAMINATION: XR LUMBOSACRAL SPINE CLINICAL INFORMATION: acute worsening mid LBP COMPARISON: None available. TECHNIQUE: Three views of the lumbosacral spine. FINDINGS: Mild levoconvex curvature. Mild anterolisthesis of L4 on L5, L5 on S1. Vertebral body heights are preserved. No evidence of acute fracture. Disc spaces are preserved. Mild facet degeneration. SI joints are symmetric. Surgical clips in the left upper quadrant. XR/XR lumbar spine 2-3V IMPRESSION: No acute findings. Mild L4-5 and L5-S1 anterolisthesis. Electronically signed by: Catarino Hyman MD 02/17/2025 02:20 PM [facility]
[2025-02-17 10:46] LABS: Hematocrit 35.7 % (37.0-47.0); Hemoglobin 11.6 g/dl (12.0-16.0); Mean Corpuscular HGB Conc 32.5 g/dl (31.0-35.0); Mean Corpuscular Hemoglobin 28.6 pg (27.0-33.0); Mean Corpuscular Volume 88.1 fL (80.0-98.0); NRBC Abs Auto 0.000 X10*3/uL (0.0-0.012); NRBC Pct Auto 0.0 /100WBC (0.0-0.2); Platelet Count 281 X10*3/uL (160-400); Red Blood Count 4.05 X10*6/uL (4.20-5.50); White Blood Count 6.5 X10*3/uL (4.8-10.8)
[2025-02-17 11:20] LABS: Alanine Aminotransferase 11 U/L (0-31); Albumin Level 4.5 g/dL (3.5-5.0); Alkaline Phosphatase 53 U/L (39-117); Anion Gap 10 (12-20); Aspartate Amino Transferase 20 U/L (5-31); Blood Urea Nitrogen 15 mg/dL (9-16); Calcium 9.6 mg/dL (8.4-10.2); Carbon Dioxide 28 mmol/L (22-29); Chloride 108 mmol/L (96-108); Cholesterol 159 mg/dL (<200); Estimated Glomerular Filt Rate > 60; HDL Cholesterol 50 mg/dL (>40); Iron 105 mcg/dL (30-160); Percent Iron Saturation 36 % (15-50); Potassium 4.1 mmol/L (3.3-5.1); Sodium 142 mmol/L (135-145); Total Iron Binding Capacity 290 mcg/dL (228-428); Total Protein 7.0 g/dL (6.5-8.0); Triglycerides 55 mg/dL (<150); Unsaturated Iron Binding 185 ug/dL
[2025-02-17 11:31] LABS: HBS Num1 2.06 mIU/mL (0-7.99); HBsAGNum1 0.31 S/CO (0.00-0.99); HIV Num 1 0.08 S/CO (0.00-0.99); Hepatitis B Surface Antigen Negative (Negative); ~HepC Num1 0.10 S/CO (0.00-0.79); ~Hepatitis B Surface Antibody NONREACTIVE (Nonreactive); ~Hepatitis C Antibody Nonreactive (Nonreactive)
[2025-02-17 11:40] LABS: Ferritin 38 ng/mL (10-250); Free T4 (Free Thyroxine) 0.96 ng/dL (0.71-1.85); Thyroid Stimulating Hormone 1.29 uIU/mL (0.32-4.0)
[2025-02-17 11:43] LABS: Folate 4.6 ng/mL (> or = 4.0); Vitamin B12 250 pg/mL (200-900)
--- OUTSIDE RECORDS SUMMARY | 2025-02-17 12:16 | XMS_ITS | Clinical Summary ---
Author Organization [employer] Address [address] [place] [address] Care Team Providers Care Warehouse Examiner Name Role Phone MarcoNely joseph Primary Care Provider [phone] Allergies No known active allergies Medications * This document contains information received from the source organization and may not represent a complete record from that organization. escitalopram (Lexapro) 20 MG tabletIndicatio ns:Major depression, recurrent, chronic (CMS/HCC) TAKE 1 TABLET BY MOUTH DAILY AT BEDTIME 30 tablet 1 023 Active nicotine (Nicoderm, Step 3) 7 MG/24HR patchIndication s:Tobacco use APPLY 1 PATCH TOPICALLY TO THE SKIN IN THE MORNING *DO NOT SMOKE WHILE USING PATCH* REMOVE BEFORE BEDTIME 30 patch 1 023 Active ketotifen (Zaditor) 0.025 % ophthalmic solution INSTILL 1 DROP IN EACH EYE TWICE DAILY IN THE MORNING AND AT BEDTIME NEEDED ITCHING (EYE) 5 mL 3 023 Active nicotine polacrilex (Nicorette) 2 MG gumIndications: Tobacco use CHEW 1 PIECE OF GUM EVERY 2 HOURS NEEDED FOR SMOKING CESSATION 220 each 1 024 Active triamcinolone (Kenalog) 0.1 % ointment Apply topically if needed in the morning and at bedtime for rash. 30 g 024 Active cetirizine (ZyrTEC) 10 MG tablet TAKE 1 TABLET BY MOUTH ONCE DAILY 90 tablet 3 07/15/2 024 Active Emollient (Aquaphor Advanced Therapy) 41 % ointment Apply 1 each topically if needed in the morning and at bedtime (dry skin). 454 g 3 Active baclofen (Lioresal) 20 MG tabletIndicatio ns:Muscle spasm Take 1 tablet (20 mg) by mouth 3 times daily. 30 tablet 1 Active folic acid (Folvite) 1 MG tablet Take 1 tablet (1 mg) by mouth Once per day. 90 tablet 3 025 2025 Active thiamine (Vitamin B-1) 100 MG tablet Take 1 tablet (100 mg) by mouth Once per day. 90 tablet 3 025 2025 Active Multiple Vitamin (Multivitamin) tabletIndicatio ns:Status post laparoscopic sleeve gastrectomy Take 1 tablet by mouth in the morning. 90 tablet 3 Active cyanocobalamin (Vitamin B-12) 500 MCG tablet Take 1 tablet (500 mcg) by mouth Once per day. 90 tablet 3 025 2025 Active beta carotene (vitamin A) 3 MG (02187 UT) capsule Take 1 capsule (3 mg) by mouth Once per day. 90 capsule 3 025 2025 Active cholecalciferol (D3 Super Strength) 50 MCG (2000 UT) capsule Take 1 capsule (50 mcg) by mouth Once per day. 90 capsule 3 025 2025 Active docusate sodium (Colace) 100 MG capsule Take 1 capsule by mouth 2 times daily. Active Petrolatum 42 % ointment APPLY TOPICALLY TWICE DAILY IN THE MORNING AND AT BEDTIME NEEDED FOR DRY SKIN Active triamcinolone (Nasacort) 55 MCG/ACT nasal inhaler INSTILL 2 SPRAYS IN EACH NOSTRIL ONCE DAILY EVERY MORNING 16.9 mL 11 Active Zepbound 10 MG/0.5ML solution auto-injectorIn dications:BMI 36.0-36.9,adult INJECT ONE PEN (=10MG) SUBCUTANEOUSLY ONCE A WEEK DIRECTED 2 mL 1 01/31/20 25 1:32 PM EST Active naproxen (Naprosyn) 500 MG tablet Take 1 tablet (500 mg) by mouth if needed in the morning and at bedtime for mild pain or moderate pain. 40 tablet 1 01/18/20 9:21 AM EST 2025 Active ciclopirox (Penlac) 8 % solution Apply topically if needed at bedtime (nail fungus). 6 mL 1 01/18/20 9:21 AM EST Active melatonin 5 MG tablet Take 1-2 tablets (5-10 mg) by mouth if needed at bedtime (insomnia). 60 tablet 3 01/31/20 1:32 PM EST Active baclofen (Lioresal) 10 MG tablet Take 1 tablet (10 mg) by mouth if needed in the morning, at noon, and at bedtime for muscle spasms. 60 tablet 3 01/18/20 9:21 AM EST 025 2025 Active lidocaine (Lidoderm) 5 % patch APPLY 1 PATCH TOPICALLY TO SKIN, LEAVE ON FOR 12 HOURS AND OFF FOR 12 HOURS DIRECTED 30 patch 3 01/18/20 9:21 AM EST Active Diclofenac Sodium 1 % gel Apply 2 g topically if needed in the morning, at noon, in the evening, and at bedtime (pain). 150 g 3 01/31/20 1:32 PM EST Active Acetaminophen Extra Strength 500 MG tablet TAKE 1 TABLET BY MOUTH EVERY 6 HOURS 60 tablet 1 Active Acetaminophen Extra Strength 500 MG tablet Take 1 tablet (500 mg) by mouth every 6 (six) hours. 60 tablet 1 01/18/20 9:21 AM EST 2024 Discontinued Active Problems Problem Noted Date Diagnosed [...] Encounters Date Type Department Care Team Description 02/14/2025 Refill [facility] [address] [facility] [place] [id number] Nely White DO BMI 36.0-36.9,adult 01/27/2025 Refill [facility] [address] [facility] [place] [address] Nely White DO 01/22/2025 Refill [facility] [address] [facility] [place] [address] Nely White DO 01/14/2025 Refill [facility] [address] [facility] [place] [address] Nely White DO 12/31/2024 Telephone [facility] [address] [place] [address] Nely White DO 12/23/2024 10:30 AM EDT Office Visit [facility] [address] [facility] [place] [address] Nely White DO Major depression, recurrent, chronic (CMS/HCC) (Primary Dx); Alcohol use disorder; History of anemia; Chronic bilateral low back pain without sciatica; Class 1 obesity without serious comorbidity with body mass index (BMI) of 31.0 to 31.9 in adult, unspecified obesity type; Healthcare maintenance; Dietary counseling; Exercise counseling; Muscle spasm 12/23/2024 Telephone [facility] [address] [facility] [place] [address] Nely White DO Prior Authorization ( JESUS: Dell) 12/23/2024 Travel 12/16/2024 Patient Outreach [facility] [address] [place] [address] Nely White DO Pre-visit Planning (SDOH unable to reach LVM ) 12/16/2024 Travel 12/06/2024 Travel 12/03/2024 Refill [facility] [address] [place] [address] Nely White DO BMI 36.0-36.9,adult 11/19/2024 8:40 AM EDT Office Visit [facility] [address] [place] [address] Georgi Izquierdo MD Influenza-like symptoms (Primary Dx) 11/19/2024 Telephone [facility] [address] [place] [address] Nely White DO Chart Prep 11/19/2024 Travel 11/19/2024 Refill [facility] [address] [place] [address] Nely White DO from Last 3 Months Immunizations Immunization Administration Dates Next Due Influenza, IIV3, injectable [...] Sign Reading Time Taken Comments Blood Pressure 112/70 12/23/2024 10:42 AM EDT Pulse 80 12/23/2024 10:42 AM EDT Temperature 36.6 C (97.9 F) 12/23/2024 10:42 AM EDT Respiratory Rate 19 12/23/2024 10:42 AM EDT Oxygen Saturation 100% 12/23/2024 10:42 AM EDT Inhaled Oxygen Concentration - - Weight 82.3 kg (181 lb 6 oz) 12/23/2024 10:42 AM EDT Height 162.6 cm (5' 4 ) 12/23/2024 10:42 AM EDT Body Mass Index 31.13 12/23/2024 10:42 AM EDT Plan of Treatment Health Maintenance Due Date Last Done Comments Disability Screening 1985 Alcohol/Substance Use Screening 1997 Family Planning (PISQ) 01/17/2000 HPV Vaccines (1 - 3-dose series) 01/17/2000 Hepatitis B Vaccines (1 of 3 - 19+ 3-dose series) 01/17/2004 Pneumococcal Vaccine: Pediatrics (0 to 5 Years) and At-Risk Patients (6 to 49) Years (1 of 2 - PCV) 01/17/2004 COVID-19 Vaccine (2 - season) 2024 11/27/2023 Influenza Vaccine (#1) 2024 12/11/2007 Depression Screening 05/20/2025 05/20/2024, 05/21/19 25 SDOH Screening 05/20/2025 05/20/2024 Cervical Cancer Screening 08/08/2025 HPV/Cotest 08/08/2025 06/27/2024, 01/28, 02/16/2021, Additional history exists Pap Smear 08/08/2025 06/27/2024, 04/3 , 02/17/2022, Additional history exists Mammogram 09/24/2025 09/24/2024, 05/0 02/2023, 03/10/2022 Tobacco Screening 12/23/2025 12/23/2024 Lipid Panel 02/17/2030 02/17/2025, 08/15/2023 DTaP/Tdap/Td Vaccines (4 - Td or Tdap) 07/29/2030 07/29/2020, 11/18/2016, 03/09/2009 Zoster Vaccines (1 of 2) 2035 RSV Patients and Patients Aged 60 years or older (1 - 1-dose 75+ series) 01/17/2060 HIV Screening Completed 02/17/2025, 07/28, 09/01/2020 Hepatitis C Screening Completed 02/17/2025, 024 Colposcopy Discontinued 08/08/2024 HIB Vaccines Aged Out No longer eligi ble based on patient's age to complete this topic Hepatitis A Vaccines Aged Out No long er eligible based on patient's age to complete this topic IPV Vaccines Aged Out No longer eligi ble based on patient's age to complete this topic Meningococcal B Vaccine Aged Out No l onger eligible based on patient's age to complete [...] Procedure Name Priority Date/Time Associated Diagnosis Comments IRON AND TOTAL IRON BINDING CAPACITY Routine 02/17/2025 10:33 AM EST Major depression, recurrent, chronic (CMS/HCC) Alcohol use disorder History of anemia Chronic bilateral low back pain without sciatica Class 1 obesity without serious comorbidity with body mass index (BMI) of 31.0 to 31.9 in adult, unspecified obesity type Healthcare maintenance Dietary counseling Exercise counseling Muscle spasm FERRITIN Routine 02/17/2025 10:33 AM EST Major depression, recurrent, chronic (CMS/HCC) Alcohol use disorder History of anemia Chronic bilateral low back pain without sciatica Class 1 obesity without serious comorbidity with body mass index (BMI) of 31.0 to 31.9 in adult, unspecified obesity type Healthcare maintenance Dietary counseling Exercise counseling Muscle spasm VITAMIN B12/FOLATE, SERUM PANEL Routine 02/17/2025 10:33 AM EST Major depression, recurrent, chronic (CMS/HCC) Alcohol use disorder History of anemia Chronic bilateral low back pain without sciatica Class 1 obesity without serious comorbidity with body mass index (BMI) of 31.0 to 31.9 in adult, unspecified obesity type Healthcare maintenance Dietary counseling Exercise counseling Muscle spasm HEPATITIS B SURFACE ANTIBODY, QUALITATIVE Routine 02/17/2025 10:33 AM EST Major depression, recurrent, chronic (CMS/HCC) Alcohol use disorder History of anemia Chronic bilateral low back pain without sciatica Class 1 obesity without serious comorbidity with body mass index (BMI) of 31.0 to 31.9 in adult, unspecified obesity type Healthcare maintenance Dietary counseling Exercise counseling Muscle spasm HEPATITIS C AB W/REFL TO HCV RNA, QN, PCR Routine 02/17/2025 10:33 AM EST Major depression, recurrent, chronic (CMS/HCC) Alcohol use disorder History of anemia Chronic bilateral low back pain without sciatica Class 1 obesity without serious comorbidity with body mass index (BMI) of 31.0 to 31.9 in adult, unspecified obesity type Healthcare maintenance Dietary counseling Exercise counseling Muscle spasm HIV 1/2 ANTIGEN/ANTIBODY, FOURTH GENERATION W/RFL Routine 02/17/2025 10:33 AM EST Major depression, recurrent, chronic (CMS/HCC) Alcohol use disorder History of anemia Chronic bilateral low back pain without sciatica Class 1 obesity without serious comorbidity with body mass index (BMI) of 31.0 to 31.9 in adult, unspecified obesity type Healthcare maintenance Dietary counseling Exercise counseling Muscle spasm HEPATITIS B SURFACE ANTIGEN, EIA Routine 02/17/2025 10:33 AM EST Major depression, recurrent, chronic (CMS/HCC) Alcohol use disorder History of anemia Chronic bilateral low back pain without sciatica Class 1 obesity without serious comorbidity with body mass index (BMI) of 31.0 to 31.9 in adult, unspecified obesity type Healthcare maintenance Dietary counseling Exercise counseling Muscle spasm BASIC METABOLIC PANEL Routine 02/17/2025 10:33 AM EST Major depression, recurrent, chronic (CMS/HCC) Alcohol use disorder History of anemia Chronic bilateral low back pain without sciatica Class 1 obesity without serious comorbidity with body mass index (BMI) of 31.0 to 31.9 in adult, unspecified obesity type Healthcare maintenance Dietary counseling Exercise counseling Muscle spasm CBC Routine 02/17/2025 10:33 AM EST Major depression, recurrent, chronic (CMS/HCC) Alcohol use disorder History of anemia Chronic bilateral low back pain without sciatica Class 1 obesity without serious comorbidity with body mass index (BMI) of 31.0 to 31.9 in adult, unspecified obesity type Healthcare maintenance Dietary counseling Exercise counseling Muscle spasm HEMOGLOBIN A1C Routine 02/17/2025 10:33 AM EST Major depression, recurrent, chronic (CMS/HCC) Alcohol use disorder History of anemia Chronic bilateral low back pain without sciatica Class 1 obesity without serious comorbidity with body mass index (BMI) of 31.0 to 31.9 in adult, unspecified obesity type Healthcare maintenance Dietary counseling Exercise counseling Muscle spasm HEPATIC FUNCTION PANEL Routine 02/17/2025 10:33 AM EST Major depression, recurrent, chronic (CMS/HCC) Alcohol use disorder History of anemia Chronic bilateral low back pain without sciatica Class 1 obesity without serious comorbidity with body mass index (BMI) of 31.0 to 31.9 in adult, unspecified obesity type Healthcare maintenance Dietary counseling Exercise counseling Muscle spasm VITAMIN D,25-OH,TOTAL,IA Routine 02/17/2025 10:33 AM EST Major depression, recurrent, chronic (CMS/HCC) Alcohol use disorder History of anemia Chronic bilateral low back pain without sciatica Class 1 obesity without serious comorbidity with body mass index (BMI) of 31.0 to 31.9 in adult, unspecified obesity type Healthcare maintenance Dietary counseling Exercise counseling Muscle spasm TSH Routine 02/17/2025 10:33 AM EST Major depression, recurrent, chronic (CMS/HCC) Alcohol use disorder History of anemia Chronic bilateral low back pain without sciatica Class 1 obesity without serious comorbidity with body mass index (BMI) of 31.0 to 31.9 in adult, unspecified obesity type Healthcare maintenance Dietary counseling Exercise counseling Muscle spasm LIPID PANEL, STANDARD Routine 02/17/2025 10:33 AM EST Major depression, recurrent, chronic (CMS/HCC) Alcohol use disorder History of anemia Chronic bilateral low back pain without sciatica Class 1 obesity without serious comorbidity with body mass index (BMI) of 31.0 to 31.9 in adult, unspecified obesity type Healthcare maintenance Dietary counseling Exercise counseling Muscle spasm T4, FREE Routine 02/17/2025 10:33 AM EST Major depression, recurrent, chronic (CMS/HCC) Alcohol use disorder History of anemia Chronic bilateral low back pain without sciatica Class 1 obesity without serious comorbidity with body mass index (BMI) of 31.0 to 31.9 in adult, unspecified obesity type Healthcare maintenance Dietary counseling Exercise counseling Muscle spasm POCT INFLUENZA B (ID NOW RAPID MOLECULAR) Routine 11/19/2024 8:55 AM EDT Influenza-like symptoms POCT INFLUENZA A (ID NOW RAPID MOLECULAR) Routine 11/19/2024 8:55 AM EDT Influenza-like symptoms POCT RAPID STREP A Routine 11/19/2024 8: 55 AM EDT Influenza-like symptoms POCT RAPID COVID ANTIGEN Routine 11/19/2024 8:55 AM EDT Influenza-like symptoms BI US BREAST LIMITED RIGHT Routine 09/24/2024 1:41 PM EDT COLPOSCOPY Routine 08/08/2024 11:19 AM EDT HPV DNA, LOW/HIGH RISK Routine 06/27/2024 11:52 AM EDT PAP SMEAR Routine 06/27/2024 11:52 AM EDT from Last 3 Months or Most Recently Relevant to Health Maintenance Results * (ABNORMAL) Vitamin D, 25-Hydroxy, Total, Immunoassay (02/17/2025 10:33 AM EST) Vitamin D 25-OH Total 17.5(L) >30 ng/mL [facility] Comment: Health Based Reference Values*< 20 ng/mL [id number] ng/mL Insufficient> 30 ng/mL Sufficient*Terri CHATTERJEE. N Engl J Med. 2007;357:266-280There is no well-established upper level of normal vitamin Dlevels. Some laboratories use 50 ng/mL as an upper limit ofnormal. However, toxicity is patient-dependent and may occurat any level. Careful correlation with the patient'spresentation is necessary and, if there is concern forvitamin D toxicity, treatment should be consideredirrespective of the serum level.Care must be taken in interpreting Vitamin D results fromdifferent laboratories and methodologies. Published datademonstrated that results from patients undergoinghemodialysis may show a negative bias when tested withvarious automated 25-OH vitamin D assays when compared toLC-MS/MS.When testing samples from patients whose predominant form ofVitamin D is Vitamin D2, such as patients receiving VitaminD2 supplementation, results that are subtherapeutic shouldbe confirmed with another method such as LC-MS/MS. Blood Venous blood specimen / Unknown 02/17/2025 10:33 AM EST 02/17/2025 10:33 AM EST Nely Cindy LAB BLOOD ORDERABLES Final R esult Performing Organization Address [facility]/ZIP Co de Phone Number [facility] [address] [place] [phone] * Vitamin B12 (Cobalamin) and Folate Panel, Serum (02/17/2025 10:33 AM EST) Vitamin B12 250 200 - 900 pg/mL [facility] Comment:NORMAL 200-900 PG/M L INDETERMINATE 160-199 PG/ML DEFICIENT < 160 PG/ML Folate 4.6 > or = 4.0 ng/mL [facility] Comment:Reference Values:> o r = 4.0 ng/mL< 4.0 ng/mL suggests folate deficiency Methotrexate, aminopterin and folinic acid(leucovorin) are chemotherapeutic agents whose molecularstructures are similar to folate; therefore, the Architectfolate assay cannot be used for patients using these drugs. Blood 02/17/2025 10:3 3 AM EST 02/17/2025 10:33 AM EST Nely White LAB BLOOD ORDERABLES Final R [facility] Performing Organization Address [facility] Co de Phone Number [facility] [address] [place] [phone] * Hepatitis C Antibody with Reflex to HCV, RNA, Quantitative, Real-Time PCR (02/17/2025 10:33 AM EST) Hepatitis C Antibody Nonreactive Nonreactive [facility] Comment:Antibodies to HCV no t detected; does not exclude early acuteHCV infection. Blood Venous blood specimen / Unknown 02/17/2025 10:33 AM EST 02/17/2025 10:33 AM EST Nely White DO LAB BLOOD ORDERABLES Final R esult Performing Organization Address City/[facility]/ZIP Co de Phone Number [facility] [address] [place] [phone] * Iron And Total Iron Binding Capacity (02/17/2025 10:33 AM EST) Iron 105 30 - 160 mcg/dL [facility] Total Iron Binding Capacity 290 228 - 428 mcg/dL [facility] Percent Iron Saturation 36 15 - 50 % [facility] Unsaturated Iron Binding 185 ug/dL [facility] Blood Venous blood specimen / Unknown 02/17/2025 10:33 AM EST 02/17/2025 10:33 AM EST Nely White DO LAB BLOOD ORDERABLES Final R esult [facility] [address] [place] [phone] * Hepatitis B surface antigen, EIA (02/17/2025 10:33 AM EST) Pathologist [facility] Hepatitis B Surface Ag Negative Negative [facility] Blood Venous blood specimen / Unknown 02/17/2025 10:33 AM EST 02/17/2025 10:33 AM EST Nely White DO LAB BLOOD ORDERABLES Final R esult Performing Organization Address City/[facility]/ZIP Co de Phone Number [facility] [address] [place] [phone] * HIV-1/2 Antigen and Antibodies, Fourth Generation, with Reflexes (02/17/2025 10:33 AM EST) Pathologist [facility] HIV AB/AG Nonreactive Nonreactive [facility] Comment:HIV-1 p24 Ag and/or HIV-1/HIV-2 Ab not detected.A test result that is nonreactive does not exclude thepossibility of exposure to or infection with HIV-1 and/orHIV-2. Nonreactive results in this assay for individualswith prior exposure to HIV-1 and/or HIV-2 may be due toantigen and antibody levels that are below the limit ofdetection of this assay.The Save22 HIV Ag/Ab Combo assay result andsupplemental assay results should be interpreted inconjunction with the patient's clinical presentation,history and other laboratory results. If the results areinconsistent with clinical evidence, additional testing issuggested to confirm the result. Blood Venous blood specimen / Unknown 02/17/2025 10:33 AM EST 02/17/2025 10:33 AM EST Nely Cindy LAB BLOOD ORDERABLES Final R esult Performing Organization Address [facility]/ZIP Co de Phone Number [facility] [address] [place] [phone] * Hepatitis B Surface Antibody, Qualitative (02/17/2025 10:33 AM EST) Pathologist [facility] ~Hepatitis B Surface Antibody NONREACTIVE Nonreactive [facility] Comment:Nonreactive: < 8.00 mIU/mL Blood Venous blood specimen / Unknown 02/17/2025 10:33 AM EST 02/17/2025 10:33 AM EST Nely Cindy LAB BLOOD ORDERABLES Final R esult Performing Organization Address [facility] Co de Phone Number [facility] [address] [place] [phone] * (ABNORMAL) CBC (02/17/2025 10:33 AM EST) White Blood Count 6.5 4.8 - 10.8 X10*3/uL [facility] Red Blood Count 4.05(L) 4.20 - 5.50 X10*6/uL [facility] Hemoglobin 11.6(L) 12.0 - 16.0 g/dl [facility] Hematocrit 35.7(L) 37.0 - 47.0 % [facility] Mean Corpuscular Volume 88.1 80.0 - 98.0 fL [facility] Mean Corpuscular Hemoglobin 28.6 27.0 - 33.0 pg [facility] Mean Corpuscular HGB Conc 32.5 31.0 - 35.0 g/dl [facility] Red Cell Distribution Width 13.2 11.0 - 16.0 % [facility] Platelet Count 281 160 - 400 X10*3/uL [facility] Mean Platelet Volume 10.9 9.4 - 12.3 fL [facility] NRBC Pct Auto 0.0 0.0 - 0.2 /100WBC [facility] NRBC Abs Auto 0.000 0.0 - 0.012 X10*3/uL [facility] Blood Venous blood specimen / Unknown 02/17/2025 10:33 AM EST 02/17/2025 10:33 AM EST Nely White LAB BLOOD ORDERABLES Final R esult Performing Organization Address City/[facility]/ZIP Co de Phone Number [facility] [address] [place] [phone] * TSH (02/17/2025 10:33 AM EST) Thyroid Stimulating Hormone 1.29 0.32 - 4.0 uIU/mL [facility] Comment:TSH 3rd Generation ( Phone Warrior) Blood Venous blood specimen / Unknown 02/17/2025 10:33 AM EST 02/17/2025 10:33 AM EST Nely Cindy LAB BLOOD ORDERABLES Final R esult Performing Organization Address City/[facility] Co de Phone Number [facility] [address] [place] [phone] * T4, Free (02/17/2025 10:33 AM EST) Free T4 (Free Thyroxine) 0.96 0.71 - 1.85 ng/dL [facility] Blood Venous blood specimen / Unknown 02/17/2025 10:33 AM EST 02/17/2025 10:33 AM EST Nely White DO LAB BLOOD ORDERABLES Final R esult Performing Organization Address City/[facility] Co de Phone Number [facility] [address] [place] [phone] * Hemoglobin A1c (02/17/2025 10:33 AM EST) Hemoglobin A1c 5.2 <6.0 % [facility] Comment:Hemoglobin A1C Refer ence Range Adults: 4.8 - 6.0 % Non diabetic: < 6.0 % Goal: < 7.0 %Additional Action Suggested: > 8.0 %Note: Hemoglobin A1c results are invalid for patients with abnormal amounts of HbF. Blood transfusions may impact the HbA1c concentration in the patient sample. Estimated Average Glucose 103 mg/dL [facility] Comment:eAG = Estimated ave rage glucose which is %A1C expressed asaverage glucose, using the formula of the [id number]-[id number] Glucose study (ADAG), Diabetes Care, Vol.31,#8,2007 Blood Venous blood specimen / Unknown 02/17/2025 10:33 AM EST 02/17/2025 10:33 AM EST Nely White DO LAB BLOOD ORDERABLES Final R esult Performing Organization Address [facility] Co de Phone Number [facility] [address] [place] [phone] * Ferritin (02/17/2025 10:33 AM EST) Ferritin 38 10 - 250 ng/mL [facility] Blood Venous blood specimen / Unknown 02/17/2025 10:33 AM EST 02/17/2025 10:33 AM EST Nely White DO LAB BLOOD ORDERABLES Final R esult Performing Organization Address City/[facility]/ZIP Co de Phone Number [facility] [address] [place] [phone] * Hepatic Function Panel (02/17/2025 10:33 AM EST) Bilirubin, Total 0.5 0.0 - 1.0 mg/dL [facility] Bilirubin, Direct 0.2 0.0 - 0.5 mg/dL [facility] Aspartate Amino Transferase 20 5 - 31 U/L [facility] Alanine Aminotransferase 11 0 - 31 U/L [facility] Total Protein 7.0 6.5 - 8.0 g/dL [facility] Albumin Level 4.5 3.5 - 5.0 g/dL [facility] Alkaline Phosphatase 53 39 - 117 U/L [facility] Blood Venous blood specimen / Unknown 02/17/2025 10:33 AM EST 02/17/2025 10:33 AM EST us Nely White DO LAB BLOOD ORDERABLES Final R esult Performing Organization Address [facility]/ZIP Co de Phone Number [facility] [address] [place] [address] [phone] * Lipid Panel, Standard (02/17/2025 10:33 AM EST) Triglycerides 55 <150 mg/dL [facility] Comment:Desirable Triglyceri de: less than 150 mg/dLBorderline High Triglyceride 150-199 mg/dLHigh Triglyceride: 200-499 mg/dLVery High Triglyceride: greater than or equal to 5OO mg/dL Cholesterol 159 <200 mg/dL [facility] Comment:Desirable Cholestero l: less than 200 mg/dLBorderline High Cholesterol: 200-239 mg/dLHigh Cholesterol: greater than 239 mg/dL LDL Cholesterol Calculated 98 <100 mg/dL [facility] Comment:Desirable LDL: less than 100 mg/dLNear Optimal/Above Optimal LDL: 110- 129 mg/dLBorderline High LDL: 130-159 mg/dLHigh LDL: 160-189 mg/dLVery High LDL: greater than or equal to 190 mg/dL HDL Cholesterol 50 >40 mg/dL [facility] Comment:Desirable HDL: great er than 40 mg/dL Note: This HDL assay may give artificially low results in patients with liver disease. Blood Venous blood specimen / Unknown 02/17/2025 10:33 AM EST 02/17/2025 10:33 AM EST Nely White DO LAB BLOOD ORDERABLES Final R esult Performing Organization Address City/[facility]/ZIP Co de Phone Number [facility] [address] [place] [phone] * (ABNORMAL) Basic Metabolic Panel (02/17/2025 10:33 AM EST) Sodium 142 135 - 145 mmol/L [facility] Potassium 4.1 3.3 - 5.1 mmol/L [facility] Chloride 108 96 - 108 mmol/L [facility] Carbon Dioxide 28 22 - 29 mmol/L [facility] Anion Gap 10(L) 12 - 20 [facility] Urea Nitrogen (BUN) 15 9 - 16 mg/dL [facility] Creatinine, Serum 0.71 0.5 - 1.4 mg/dL [facility] Estimated Glomerular Filt Rate >60 [facility] Comment:Chronic Kidney Disea se: Estimated GFR < 60 mL/min/1.27k3Atjuaj Kidney Disease: Estimated GFR < 15 mL/min/1.73m2 Glucose 73 60 - 115 mg/dL [facility] Calcium 9.6 8.4 - 10.2 mg/dL [facility] Blood Venous blood specimen / Unknown 02/17/2025 10:33 AM EST 02/17/2025 10:33 AM EST Nely White DO LAB BLOOD ORDERABLES Final R esult Performing Organization Address [facility]/ZIP Co de Phone Number [facility] [address] [place] [phone] * Influenza B (ID NOW Rapid Molecular) (11/19/2024 8:55 AM EDT) [facility] Influenza B Negative Negative, Indeterminate [facility] Swab 11/19/2024 8:55 AM EDT us Georgi Izquierdo MD POINT OF CARE TEST ENTER/EDIT OR DERABLES Final Result Performing Organization Address [facility] Co de Phone Number [facility] [address] [place] [phone] * Influenza A (ID NOW Rapid Molecular) (11/19/2024 8:55 AM EDT) [facility] Influenza A Negative Negative, Indeterminate [facility] Swab 11/19/2024 8:55 AM EDT us Georgi Izquierdo MD POINT OF CARE TEST ENTER/EDIT OR DERABLES Final Result Performing Organization Address [facility] Co de Phone Number [facility] [address] [place] [phone] * POCT Rapid COVID Ag (11/19/2024 8:55 AM EDT) [facility] Rapid COVID Ag Negative [facility] Swab 11/19/2024 8:55 AM EDT us Georgi Izquierdo MD POINT OF CARE TEST ENTER/EDIT OR DERABLES Final Result Performing Organization Address [facility] Co de Phone Number [facility] [address] [place] [phone] * POCT rapid strep A manually resulted (11/19/2024 8:55 AM EDT) [facility] Rapid Strep A Screen Negative Negative, None Detected [facility] Swab 11/19/2024 8:55 AM EDT us Georgi Izquierdo MD POINT OF CARE TEST ENTER/EDIT OR DERABLES Final Result [facility] [address] [place] [phone] * BI US Breast Limited Right (09/24/2024 1:41 PM EDT) Anatomical Region Laterality Modality Breast Right Ultrasound 09/24/2024 1:41 PM EDT Narrative 09/24/2024 2:18 PM EDT [facility] [address] [place] [address] Ultrasound Report Signed Patient: Shanae Smith MR#: [id number] : 1985 Acct:[id number] Age/Sex: 39 / F ADM Date: 09/24/24 Loc: HO.MAMMO Attending Dr: Nely White DO Ordering Physician: Nely White DO Date of Service: 09/24/24 Procedure(s): US breast RT limited mamm only Accession Number(s): [id number] cc: Nely White DO US BREAST LIMITED RIGHT Clinical information: Patient is status post Limited ultrasound of the right breast on June 28, 2023 that describes palpable right breast nodule at 9 o'clock position 9 cm from the nipple and a 6-month follow-up ultrasound was recommended. This finding has being followed up since February 2022. COMPARISON: Right breast ultrasound on March 10, 2022 and June 28, 2023. FINDINGS: Targeted ultrasound of the right breast was performed at the location of the previously described sonographic finding. The survey shows a 0.5 x 0.5 x 0.3 cm hypoechoic structure, with findings suggestive of vascular pedicle which favors possibility of a lymph node, located at 9 o'clock position at 9 cm from the nipple. Prior measurements were 0.6 x 0.3 x 0.6 cm in June 2023 and 0.7 x 0.3 x 0.6 cm February 2022. US/US breast RT limited mamm only IMPRESSION: Right breast: Right breast nodule at 9 o'clock position 9 cm from the nipple, possibly a lymph node or fibroadenoma as previously stated, essentially unchanged from February 2002. At this point, this finding can be considered to be benign and no further dedicated imaging follow-up is required. Findings were conveyed to the patient via mammography technologist. ASSESSMENT: BI-RADS 2 - Benign Findings RECOMMENDATION: Mammo at 40 or earlier if clinically needed This patient's information was entered into a reminder system with a target due date for their next mammogram. Electronically signed by: Tavo Mcintyre MD 09/24/2024 02:15 PM EDT Dictated By: Tavo Mcintyre MD Signed By: <Electronically signed by Tavo Mcintyre MD in OV> 09/24/24 1415 DD/ 1341 TD/TT: 09/24/24 1355 Imagery Intelligence: Procedure Note Donotuseinterpreter, Image - 09/24/2024 [facility] [address] [place] [address] Ultrasound Report Signed Patient: Dean Smith#: [id number] : 1985Acct:[id number] Age/Sex: 39 / FADM Date: 09/24/24 Loc: HO.MAMMO Attending Dr: Nely White DO Ordering Physician: Nely White DO Date of Service: 09/24/24 Procedure(s): US breast RT limited mamm only Accession Number(s): [id number] cc: Nely White DO US BREAST LIMITED RIGHT Clinical information: Patient is status post Limited ultrasound of the right breast on June 28, 2023 that describes palpable right breast nodule at 9 o'clock position 9 cm from the nipple and a 6-month follow-up ultrasound was recommended. This finding has being followed up since February 2022. COMPARISON: Right breast ultrasound on March 10, 2022 and June 28, 2023. FINDINGS: Targeted ultrasound of the right breast was performed at the location of the previously described sonographic finding. The survey shows a 0.5 x 0.5 x 0.3 cm hypoechoic structure, with findings suggestive of vascular pedicle which favors possibility of a lymph node, located at 9 o'clock position at 9 cm from the nipple. Prior measurements were 0.6 x 0.3 x 0.6 cm in June 2023 and 0.7 x 0.3 x 0.6 cm February 2022. US/US breast RT limited mamm only IMPRESSION: Right breast: Right breast nodule at 9 o'clock position 9 cm from the nipple, possibly a lymph node or fibroadenoma as previously stated, essentially unchanged from February 2002. At this point, this finding can be considered to be benign and no further dedicated imaging follow-up is required. Findings were conveyed to the patient via mammography technologist. ASSESSMENT: BI-RADS 2 - Benign Findings RECOMMENDATION: Mammo at 40 or earlier if clinically needed This patient's information was entered into a reminder system with a target due date for their next mammogram. Electronically signed by: Tavo Mcintyre MD 09/24/2024 02:15 PM EDT RP Workstation: [employer] Dictated By: Tavo Mcintyre MD Signed By: <Electronically signed by Tavo Mcintyre MD in OV> 09/24/24 1415 DD/ 1341 TD/TT: 09/24/24 1355 Imagery Intelligence: us Nely White DO IMG US PROCEDURES Final Resu lt * Colposcopy (08/08/2024 11:19 AM EDT) us Historical Provider IN CLINIC/BEDSIDE ORDERAB LES Final Result * (ABNORMAL) HPV DNA, Low/High Risk (06/27/2024 11:52 AM EDT) HPV High Risk Positive(A) Negative [facility] HPV Genotype 16 Negative Negative [facility] HPV Genotype 18 Negative Negative [facility] Comment:HPV testing performe d at [facility] (CLIA#[id number]), [address] [place] [phone].Testing for HPV was performed using the [employer] Kynded0system. The presence of HPV in the female genital tract isassociated with a number of diseases, including cervicalcarcinoma. The HPV DNA high risk pool tests for HPV 31, 33,35, 39, 45, 51, 52, 56, 58, 59, 66 and 68. The testing forHPV 16 and 18 genotypes has also been performed. A positiveresult indicates detection of nucleic acid sequences fromone or more subtypes, whereas a negative result indicatessuch sequences were not detected. 06/27/2024 11:5 2 AM EDT 06/28/2024 9:05 AM EDT us Generic External Data Provider LAB BLOOD ORDERAB LES Final Result Performing Organization Address City/State/[facility] Co de Phone Number [facility] [address] [place] [phone] * Pap Smear (06/27/2024 11:52 AM EDT) 06/27/2024 11:5 2 AM EDT 06/28/2024 9:05 AM EDT Mary [facility] - 07/02/2024 1:19 PM EDT ----- ------- Name: Shanae Smith Age/Sex: 39/F : 1985 Unit#: [id number] Attend Dr: Crystal Michael CNM Re06/27/24 Status: DEP [facility] ----- ------- SPEC : [id number] RECD: 06/28/24 STATUS: JACQUE STEVENSON NUM: [id number] KRISTINA: 06/27/24 [facility] DR: Crystal Michael CNM ENTERED: 06/28/24 SP TYPE: Pap Smr OTHR DR: Nely White DO ORDERED: Pap Smear Interpretation Satisfactory for evaluation. Negative for intraepithelial lesion or malignancy. No endocervical cells seen. Coccobacilli consistent with shift in vaginal darcy. HPV High Risk: Positive HPV Genotyping 16: Negative HPV Genotyping 18: Negative Clinical Information LMP: Unknown date Previous PAP test: 2023, abnormal Material Received ThinPrep-Cervical Copies To: Nely White DO [address] [address] Crystal Michael CNM [facility] [address] [facility], 3rd [place] [address] ----- ------- Signed (signature on file) CANDACE Carbone (ASCP) 07/02/24 1319 ----- ------- END OF REPORT us Generic External Data Provider LAB CYTOLOGY HECTOR BERMUDEZ Final Result [facility] [address] [place], [place] [phone] from Last 3 Months or Most Recently Relevant to Health Maintenance Insurance [facility] C3 Care Teams Warehouse Examiner Relationship Specialty Start Date End Date Nely White DO [address] [place] [address] PCP - General Family Medicine 02/27/18
--- OUTSIDE RECORDS SUMMARY | 2025-02-17 12:16 | XMS_ITS | Encounter Summary ---
Author Organization [employer] Address [address] [place] [address] Care Team Providers Care Casino Floor Walker Name Role Phone GabyNely jackson Primary Care Provider [phone] Encounter Details Date Type Department Care Team (Late st Contact Info) Description 07/28/2022 Orders Only [facility] [address] [place] [address] Georgi Izquierdo MD [address] [place] [address] Social History Tobacco Use Types Packs/Day Years [...] as of this encounter Plan of Treatment Not on file documented as of this encounter Procedures Procedure Name Priority Date/Time Associated Diagnosis Comments BACTERIAL VAGINOSIS PANEL Routine 06/27/2023 12:00 AM EDT documented in this encounter Results * (ABNORMAL) Bacterial Vaginosis (06/27/2023 12:00 AM EDT) Trichomonas DNA Probe Positive(A) Negative [facility] Gardnerella DNA Probe Positive(A) Negative [facility] Kami DNA Probe Negative Negative [facility] 06/27/2023 06/27/2023 us Generic External Data Provider LAB MICROBIOLOGY - GENERAL ORDERABLES Final Result [facility] [address] [place] [phone] documented in this encounter Visit Diagnoses Not on filedocumented in this encounter Additional Health Concerns Assessment Noted Time PHQ-9 Depression Total Score: 8 03/18/19 23 12:31 PM EST documented as of this encounter Care Teams Casino Floor Walker Relationship Specialty Start Date End Date Nely White DO [address] [place] [phone] PCP - General Family Medicine 02/27/18 documented as of this encounter
--- OUTSIDE RECORDS SUMMARY | 2025-02-17 12:16 | XMS_ITS | Encounter Summary ---
Author Organization [employer] Address [address] [facility] 7t [place] [address] Care Team Providers Care Material Handler Floorperson Name Role Phone Cindy Nely Primary Care Provider [phone] Reason for Visit * Reason Comments Med Refill Encounter Details Date Type Department Care Team (Late st Contact Info) Description 06/29/2022 Refill [facility] [address] [place] [address] Brandie Shields MD [address] [place] [address] Social History Tobacco Use Types Packs/Day Years [...] on file documented as of this encounter Visit Diagnoses Not on filedocumented in this encounter Additional Health Concerns Assessment Noted Time PHQ-9 Depression Total Score: 8 03/18/19 23 12:31 PM EST documented as of this encounter Care Teams Material Handler Floorperson Relationship Specialty Start Date End Date Nely White DO [address] [place] [address] PCP - General Family Medicine 02/27/18 documented as of this encounter
--- OUTSIDE RECORDS SUMMARY | 2025-02-17 12:16 | XMS_ITS | Encounter Summary ---
Author Organization [employer] Address [address] [place] [address] Care Team Providers Care Crabber Name Role Phone Cindy Nely Primary Care Provider [phone] Encounter Details Date Type Department Care Team ([facility] st Contact Info) Description 09/06/2024 Orders Only [facility] [address] [place] [address] Provider, MD Brandie Social History Tobacco Use Types Packs/Day Years [...] Procedure Name Priority Date/Time Associated Diagnosis Comments BI US BREAST LIMITED RIGHT Routine 09/24/2024 1:41 PM EDT COLPOSCOPY Routine 08/08/2024 11:19 AM EDT documented in this encounter Results * BI US Breast Limited Right (09/24/2024 1:41 PM EDT) Anatomical Region Laterality Modality Breast Right Ultrasound 09/24/2024 1:41 PM EDT Narrative 09/24/2024 2:18 PM EDT [facility] [address] [place] [address] Ultrasound Report Signed Patient: Shanae Smith MR#: [id number] : 1985 Acct:[id number] Age/Sex: 39 / F ADM Date: 09/24/24 Loc: HO.MAMMO Attending Dr: Nely White DO Ordering Physician: Nely White DO Date of Service: 07/29/25 Procedure(s): US breast RT limited mamm only Accession Number(s): [id number] cc: Nely White DO US BREAST LIMITED [...] Findings were conveyed to the patient via sleep technologist. ASSESSMENT: BI-RADS 2 - Benign Findings [...] 09/24/24 1415 DD/ 1341 TD/TT: 09/24/24 1355 Medical Office Supervisor: Procedure Note Donotuseinterpreter, Image - 09/24/2024 [facility] [address] [place] [address] Ultrasound Report Signed Patient: Dean Smith#: [id number] : 1985Acct:[id number] Age/Sex: 39 / FADM Date: 09/24/24 Loc: HO.MAMMO Attending Dr: Nely White DO Ordering Physician: Nely White DO Date of Service: 09/24/24 Procedure(s): US breast RT limited mamm only Accession Number(s): [id number] cc: Nely White DO US BREAST LIMITED [...] Findings were conveyed to the patient via sleep technologist. ASSESSMENT: BI-RADS 2 - Benign Findings [...] 09/24/24 1415 DD/ 1341 TD/TT: 09/24/24 1355 Medical Office Supervisor: us Nely White DO IMG US PROCEDURES Final Resu lt * Colposcopy (08/08/2024 11:19 AM EDT) us Historical Provider MD IN CLINIC/BEDSIDE ORDERAB LES Final Result documented in this encounter Visit Diagnoses Not on filedocumented in this encounter Additional Health Concerns Assessment Noted Time PHQ-9 Depression Total Score: 7 05/21/19 25 10:43 AM EDT documented as of this encounter Care Teams Crabber Relationship Specialty Start Date End Date Nely White DO [address] [place] [address] PCP - General Family Medicine 02/27/18 documented as of this encounter
--- OUTSIDE RECORDS SUMMARY | 2025-02-17 12:16 | XMS_ITS | Encounter Summary ---
Author Organization [employer] Address [address] [place] [address] Care Team Providers Care Dining Car Steward Name Role Phone Nely White DO Primary Care Provider [phone] Encounter Details Date Type Department Care Team (Late st Contact Info) Description 11/21/2023 Orders Only [facility] [address] [place] [address] Nely White DO [address] [place] [address] Screening due (Primary Dx) Social History Tobacco [...] EDT) Mumps Virus IgG Antibody 18.30 AU/mL [facility] Comment:AU/mL Interpretation ------- <9.00 Not consistent with immunity9.00-10.99 Equivocal>10.99 Consistent with immunityThe presence of mumps IgG antibody suggests immunizationor past or current infection with mumps virus. Rubella IgG Antibody 6.14 Index [facility] Comment:Index Interpretation ----- <0.90 Not consistent with immunity 0.90-0.99 Equivocal > or = 1.00 Consistent with immunityThe presence of rubella IgG antibody suggestsimmunization or past or current infection withrubella virus.THIS TEST WAS PERFORMED AT:[facility] [place] [id number] MEI MD Rubeola IgG (Measles) >300.00 AU/mL [facility] Comment:AU/mL Interpretatio n----- <13.50 Not consistent with sfuiyygb73.50-16.49 Equivocal>16.49 Consistent with immunityThe presence of measles IgG suggests immunization orpast or current infection with measles virus.For additional information, please refer tohttp://education.[employer]/faq/QXC375(This link is being provided for informational/educational purposes only.) Blood Venous blood specimen / Unknown 11/21/2023 2:18 PM EDT 11/21/2023 4:49 PM EDT us Nely White DO LAB BLOOD ORDERABLES Final R esult [facility] [address] [place] [phone] * T-SPOT??.TB (11/21/2023 2:18 PM EDT) T Spot TB Negative Negative [facility] Comment:A negative test resu lt does [...] as aquantitative test. TS PANEL A 0 [facility] TS PANEL B 0 [facility] Negative Control Passed [facility] Positive Control Passed [facility] Comment:For additional infor mation, please refer tohttp://education.[employer]/faq/AZV498(This link is being provided for informational/educational purposes only.)THIS TEST WAS PERFORMED AT:[id number] [place] [phone] RICH MD,PHD 11/21/2023 2:18 PM EDT 11/21/2023 4:49 PM EDT us Nely White DO LAB BLOOD ORDERABLES Final R esult [facility] [address] [place] [phone] * Varicella Zoster Antibody, IgG (11/21/2023 2:18 PM EDT) Pathologist [facility] Varicella IgG Antibody 16.70 S/CO [facility] Comment:Signal to Cut-off S/ CO Interpretation [...] Antibody Immunity Screen, ACIF.THIS TEST WAS PERFORMED AT:[facility] [place] [id number] MEI MD Blood Venous blood specimen / Unknown 11/21/2023 2:18 PM EDT 11/21/2023 4:49 PM EDT Nely Cindy LAB BLOOD ORDERABLES Final R esult Performing Organization Address [facility]/ZIP Co de Phone Number [facility] [address] [place] [phone] * Hepatitis B Core Antibody, Total (11/21/2023 2:18 PM EDT) Hepatitis B Core Antibody Nonreactive Nonreactive [facility] Blood Venous blood specimen / Unknown 11/21/2023 2:18 PM EDT 11/21/2023 4:49 PM EDT [facility]elyamande[facility] LararemigioAC[facility] LAB BLOOD ORDERABLES Final R esult Performing Organization Address [facility]/ZIP Co de Phone Number [facility] [address] [place] [phone] * Hepatitis B surface antigen, EIA (11/21/2023 2:18 PM EDT) Hepatitis B Surface Ag Negative Negative [facility] Blood Venous blood specimen / Unknown 11/21/2023 2:18 PM EDT 11/21/2023 4:49 PM EDT us Nely White DO LAB BLOOD ORDERABLES Final R esult Performing Organization Address [facility] Co de Phone Number [facility] [address] [place] [phone] * Hepatitis B Surface Antibody, Qualitative (11/21/2023 2:18 PM EDT) ~Hepatitis B Surface Antibody NONREACTIVE Nonreactive [facility] Comment:Nonreactive: < 8.00 mIU/mL Blood Venous blood specimen / Unknown 11/21/2023 2:18 PM EDT 11/21/2023 4:49 PM EDT Nely White DO LAB BLOOD ORDERABLES Final R esult Performing Organization Address [facility] Co de Phone Number [facility] [address] [place] [phone] [phone] documented in this encounter Visit Diagnoses Diagnosis Screening due- Primary documented in this encounter Additional Health Concerns Assessment Noted Time PHQ-9 Depression Total Score: 0 07/31/19 24 10:39 AM EDT documented as of this encounter Care Teams Dining Car Steward Relationship Specialty Start Date End Date Nely White DO [address] [place] [phone] PCP - General Family Medicine 02/27/18 documented as of this encounter
--- OUTSIDE RECORDS SUMMARY | 2025-02-17 12:16 | XMS_ITS | Encounter Summary ---
Author Organization [employer] Address [address] [facility] [address]t [place] [address] Care Team Providers Care Sewer Repairer Name Role Phone Nely White DO Primary Care Provider [phone] Encounter Details Date Type Department Care Team ([facility] st Contact Info) Description 03/02/2022 Orders Only [facility] [address] [place] [address] Nely Rodriguez LPN Social History Tobacco Use [...] on filedocumented in this encounter Care Teams Sewer Repairer Relationship Specialty Start Date End Date Nely White DO [address] [place] [phone] PCP - General Family Medicine 02/27/18 documented as of this encounter
--- OUTSIDE RECORDS SUMMARY | 2025-02-17 12:16 | XMS_ITS | Encounter Summary ---
Author Organization [employer] Address [address] [facility] [address] [place] [address] Care Team Providers Care Electronic Data Interchange Specialist Name Role Phone GabyNely jackson Primary Care Provider [phone] Encounter Details Date Type Department Care Team (Late st Contact Info) Description 08/02/2023 Orders Only [facility] [address] [place] [address] Angi Trujillo, CHEMICALS FERMENTATION OPERATOR [address] [place] [address] Social History Tobacco Use Types Packs/Day Years [...] documented as of this encounter Care Teams Electronic Data Interchange Specialist Relationship Specialty Start Date End Date Nely White DO [address] [place] [address] PCP - General Family Medicine 02/27/18 documented as of this encounter
--- OUTSIDE RECORDS SUMMARY | 2025-02-17 12:16 | XMS_ITS | Encounter Summary ---
Author Organization [employer] Address [address] [facility] [address] [place] [address] Care Team Providers Care Utility Pipe Layer Name Role Phone Nely White DO Primary Care Provider [phone] Reason for Visit * Reason Comments Med Refill Encounter Details Date Type Department Care Team ([facility] st Contact Info) Description 01/14/2025 Refill [facility] MEDICINE [address] [place] [address] Nely White DO [address] [place], [place] [phone] Social History Tobacco Use Types Packs/Day Years [...] documented as of this encounter Care Teams Utility Pipe Layer Relationship Specialty Start Date End Date Nely White DO [address] [place] [id number] PCP - General Family Medicine 02/27/18 documented as of this encounter
--- OUTSIDE RECORDS SUMMARY | 2025-02-17 12:16 | XMS_ITS | Encounter Summary ---
Author Organization [employer] Address [address] [facility] [address] [place] [address] Care Team Providers Care Business Development Representative Name Role Phone Nely White DO Primary Care Provider [phone] Reason for Visit * Reason Comments Med Refill Encounter Details Date Type Department Care Team ([facility] st Contact Info) Description 01/27/2025 Refill [facility] MEDICINE [address] [place] [address] Nely White DO [address] [place], [place] [phone] Social History Tobacco Use Types Packs/Day Years [...] documented as of this encounter Care Teams Business Development Representative Relationship Specialty Start Date End Date Nely White DO [address] [place] [id number] PCP - General Family Medicine 02/27/18 documented as of this encounter
--- OUTSIDE RECORDS SUMMARY | 2025-02-17 12:16 | XMS_ITS | Encounter Summary ---
Author Organization [employer] Address [address] [facility] [address] [place] [address] Care Team Providers Care Basket Bottom Machine Operator Name Role Phone Nely White DO Primary Care Provider [phone] Reason for Visit * Reason Comments Med Refill Encounter Details Date Type Department Care Team (Late st Contact Info) Description 03/30/2023 Refill [facility] MEDICINE [address] [place] [address] Nely White DO [address] [place], [place] [phone] Social History Tobacco Use Types Packs/Day Years [...] documented as of this encounter Care Teams Basket Bottom Machine Operator Relationship Specialty Start Date End Date Nely White DO [address] [place] [id number] PCP - General Family Medicine 02/27/18 documented as of this encounter
--- OUTSIDE RECORDS SUMMARY | 2025-02-17 12:16 | XMS_ITS | Encounter Summary ---
Author Organization [employer] Address [address] [address] [place] [address] Care Team Providers Care Leather Flesher Name Role Phone Nely White DO Primary Care Provider [phone] Encounter Details Date Type Department Care Team (Late st Contact Info) Description 11/25/2022 Abstract [facility] MEDICINE [address] [place] [address] Nely White DO [address] [place] [address] Social History Tobacco Use Types Packs/Day Years [...] documented in this encounter Results * (ABNORMAL) Hm Pap Smear (02/16/2021) Pap Epithelial cell abnormality(A ) Negative for intraephithelial lesion or malignancy, Other HPV Undetected us Historical Provider MD HEALTH MAINTENANCE Final Result documented in this encounter Visit Diagnoses Not on filedocumented in this encounter Additional Health Concerns Assessment Noted Time PHQ-9 Depression Total Score: 8 03/18/19 23 12:31 PM EST documented as of this encounter Care Teams Leather Flesher Relationship Specialty Start Date End Date Nely White DO [address] [place] [address] PCP - General Family Medicine 02/27/18 documented as of this encounter
--- OUTSIDE RECORDS SUMMARY | 2025-02-17 12:16 | XMS_ITS | Encounter Summary ---
Author Organization [employer] Address [address] [facility] [facility] [address] [place] [address] Care Team Providers Care Bilingual Patient Support Caseworker Name Role Phone Nely White DO Primary Care Provider [phone] Reason for Visit * Reason Onset Date Comments Med Refill 02/14/2025 Encounter Details Date Type Department Care Team (Late st Contact Info) Description 02/14/2025 Refill [facility] MEDICINE [address] [place] [address] Nely White DO [address] [place], [place] [phone] BMI 36.0-36.9,adult Social History Tobacco Use Types Packs/Day Years [...] AM EDT documented as of this encounter Miscellaneous Notes * Addendum Note - Akhil Stoner RN - 02/14/2025 3:16 PM ESTAddended by: AKHIL STONER on: 02/14/2025 03:16 PM Modules accepted: Orders * Telephone Encounter - Akhil Stoner RN - 02/14/2025 3:13 PM EST 10mg dose last picked up 01/29/25. No refills remaining. Has been on 10mg x 4 months. Pending refillalong with 12mg dose so that PA can get started * Telephone Encounter - Trinidad Burkett - 02/14/2025 3:01 PM EST Pt walked in requesting that pcp send authorization for higher dosage pt knows she might not be able to send it until she is seen again. So she is requesting refill for current dosage. documented in this encounter Plan of Treatment Not on file documented as of this encounter Visit Diagnoses Diagnosis BMI 36.0-36.9,adult documented in this encounter Additional Health Concerns Assessment Noted Time PHQ-9 Depression Total Score: 7 05/21/19 25 10:43 AM EDT documented as of this encounter Care Teams Bilingual Patient Support Caseworker Relationship Specialty Start Date End Date Nely White DO [address] [place] [address] PCP - General Family Medicine 02/27/18 documented as of this encounter
== END 2025-02-17 10:10 | disposition home or self-care (01) ==
LOC: HO.XRAY 10:09
PROVIDERS: PCP Family Medicine; Visit Provider Family Medicine
DX: Z00.00 Encounter for general adult medical examination without abnormal findings (principal); F33.9 Major depressive disorder, recurrent, unspecified; F10.90 Alcohol use, unspecified, uncomplicated; M54.50 Low back pain, unspecified; M62.838 Other muscle spasm; G89.29 Other chronic pain; E66.811 Obesity, class 1; Z68.31 Body mass index [BMI] 31.0-31.9, adult; Z71.3 Dietary counseling and surveillance; Z86.2 Personal history of diseases of the blood and blood-forming organs and certain disorders involving the immune mechanism; Z71.82 Exercise counseling; Z11.4 Encounter for screening for human immunodeficiency virus [HIV]; Z11.59 Encounter for screening for other viral diseases
CPT/HCPCS: 36415; 72100; 80048; 80061; 80076; 82306; 82607; 82728; 82746; 83036; 83540; 84439; 84443; 85027; 86592; 86706; 86803; 87340; 87389

== ENCOUNTER → 2025-02-17 10:34 | Outpatient (BNV) | payer MEDICAID, SELFPAY | PROVIDERS: PCP Family Medicine; Visit Provider Radiology Diagnostic Ultrasound | DX: M43.17 Spondylolisthesis, lumbosacral region (principal) | CPT/HCPCS: 72100 ==